=== PATIENT | female | born 1970 | race Caucasian/White ===

== ENCOUNTER 2024-09-18 13:17 | Emergency (ER) | payer OTHER, SELFPAY ==
[2024-09-18 13:37] VITALS: BP 126/81; PULSE 86; RESP 16; TEMP 36.7; O2SAT 95; BMI 37.8
[2024-09-18 14:05] LABS: Appearance Urine Clear (Clear); Bilirubin Urine Negative (Negative); Blood Urine 2+ (Negative); Color Urine Yellow (Yellow); Glucose Urine Negative (Negative); Ketones Urine Negative (Negative); Leukocyte Esterase Urine Negative (Negative); Nitrite Urine Negative (Negative); Protein Urine 1+ (Negative); Specific Gravity Urine >= 1.030 (1.000-1.030); Urobilinogen Urine 0.2 (0.2-1.0); pH Urine 5.5 (5.0-8.5)
[2024-09-18 14:10] LABS: Bacteria Urine Moderate; Squamous Epithelial Cell Urine Moderate (None-Few); WBC Urine 0-2 (0-5)
--- NOTE | 2024-09-18 14:10 | CRLHL7_ITS ---
For Patients: As a result of the Century Cures Act, medical imaging exams and procedure reports are released immediately into your electronic medical record. You may view this report before your referring provider. If you have questions, please contact your health care provider. Indication: Left flank and abdominal pain, hip pain Technique: Volumetric multidetector CT images of the abdomen and pelvis were without the administration of intravenous contrast. Comparison: None available. Findings: The lung bases are clear. The liver is normal in attenuation without intrahepatic biliary ductal dilatation. The gallbladder is unremarkable without evidence of radiopaque calculus. There is no significant common biliary ductal dilatation or abrupt cut off. The spleen is normal in attenuation and size. The stomach and duodenum are grossly unremarkable. The pancreas is normal in attenuation without significant atrophy. The adrenal glands are unremarkable. Demonstration of a 7.4 millimeter calculus within the left renal pelvis with mild pelviectasis and proximal periureteral soft tissue stranding. No evidence of distal hydronephrosis or obstructive calculus. There is a mild amount of stool seen throughout the colon. There is mild distal colonic diverticulosis. The appendix is unremarkable. There is no significant mesenteric, retroperitoneal, or pelvic sidewall lymph nodes. The aorta is nonaneurysmal. There is no significant atherosclerotic disease appreciated. The solid pelvic viscera are grossly unremarkable. There is no free fluid or free air. There is moderate diastasis of the rectus musculature with a small fat containing umbilical hernia. The lumbar vertebral body heights are grossly maintained in satisfactory alignment without evidence of displaced fracture, lytic or blastic lesion. Impression: 1. Demonstration of a 7.4 millimeter calculus in the left renal pelvis with mild pelviectasis and proximal periureteral soft tissue stranding likely representing early obstructive changes without evidence of distal obstructive calculus. Please note that all CT scans at this facility use dose modulation, iterative reconstruction, and/or weight-based dosing when appropriate to reduce radiation dose to as low as reasonably achievable. Dictated by Chris Edward MD @ 09/18/2024 3:16:38 PM (Electronically Signed)
--- NOTE | 2024-09-18 14:11 | ED_ITS ---
HPI - General Adult General Chief complaint: Flank Pain Stated complaint: Back and L hip pain Time Seen by Provider: 09/18/24 13:29 History of Present Illness HPI narrative: This 53-year-old female comes in reporting left flank pain radiating down into her abdomen. She states that this pain has occurred on and off over the past 2 or 3 months. Sometimes she has associated nausea and attempts to get into a better position. She does not report any specific injury event or strenuous a ctivity. She does not have any dysuria symptoms and has no awareness of any personal or family history of kidney stone. She attempted to call in to clinic for an appointment and the triage nurse stated that she needed to come to the emergency department. Related Data Previous Rx's ?Medication ?Instructions ?Recorded hydrocodone 5 mg-acetaminophen 325 1 tab PO Q4-6H PRN pain #20 tabs 09/18/24 mg tablet ketorolac 10 mg tablet 10 mg PO Q8H 5 days #15 tabs 09/18/24 Allergies Allergy/AdvReac Type Severity Reaction Status Date / Time Latex, Natural Rubber Allergy Unknown Verified 09/18/24 13:44 Review of Systems Status of ROS: Reports: 10 or more systems reviewed and unremarkable except as noted in History and below Narrative: Constitutional: No fevers, no weight gain or loss. Eyes: No discharge. No vision changes. HENT: No congestion, no sore throat, no ear pain. Cardiovascular: No chest pain, no palpitations. Respiratory: No shortness of breath, no wheezes, no cough. Gastrointestinal: No diarrhea. Left flank and abdominal pain as described above with occasions of nausea. Genitourinary: No dysuria, no hematuria. Musculoskeletal: Normal range of motion. Skin: No rashes, no pruritis. Neurological: No dizziness, weakness, sensory change, speech change. Endo/Heme/Allergies: No bruising or bleeding. No polydipsia. Pysch: no suicidality, no anxiety, no insomnia. All other systems reviewed and are negative. PFSH PFSH Social History Smoking Status: Never smoker How often do you have a drink containing alcohol: never How often do you have six or more drinks on one occasion: Never AUDIT-C Alcohol total score: 0 Non-prescribed substance use: denies use Exam Narrative: Exam Narrative: Constitutional: Well-developed, well-nourished, no acute distress. HEENT: Normocephalic, atraumatic. Neck: Normal range of motion. Nontender. Supple. Heart: Regular. No murmurs. Normal rate. Intact distal pulses. Lungs: Clear to auscultation. No chest discomfort. No wheezes, rhonchi, or rales. Abdomen: Normal bowel sounds. Nontender. No rebound tenderness. Genitalia: Deferred. Back: No midline tenderness. Normal range of motion. Extremities: Normal range of motion. No injury. Skin: Intact. No rash. Warm. No erythema or pallor. Neurologic: No altered sensation. No weakness. Alert and oriented. Psychiatric: No suicidality. No anxiety or depression. No insomnia. Nursing notes and vitals signs are reviewed. Const: Vital Signs, click to edit/add: Vital Signs - 24 hr 09/18/24 13:37 Temperature 98.0 F Pulse Rate [Pulse Oximeter] 86 Respiratory Rate 16 Blood Pressure [Ri ght Upper Arm] 126/81 Pulse Oximetry 95 Oxygen Delivery Me thod Room Air Course Vital Signs Vital signs: Initial Vital Signs Temperature 98.0 F 09/18/24 13:37 Temperature Source Temporal Artery Scan 09/18/24 13:37 Pulse Rate 86 09/18/24 13:37 Respiratory Rate 16 09/18/24 13:37 Blood Pressure 126/81 09/18/24 13:37 Blood Pressure Mean 96 09/18/24 13:37 Blood Pressure Position Sitting 09/18/24 13:37 Pulse Oximetry 95 09/18/24 13:37 Oxygen Delivery Method Room Air 09/18/24 13:37 Vital Signs Temperature 98.0 F 09/18/24 13:37 Pulse Rate 86 09/18/24 13:37 Respiratory Rate 16 09/18/24 13:37 Blood Pressure 126/81 09/18/24 13:37 Pulse Oximetry 95 09/18/24 13:37 Oxygen Delivery Method Room Air 09/18/24 13:37 Temperature 98.0 F 09/18/24 13:37 Pulse Rate 86 09/18/24 13:37 Respiratory Rate 16 09/18/24 13:37 Blood Pressure 126/81 09/18/24 13:37 Pulse Oximetry 95 09/18/24 13:37 Oxygen Delivery Method Room Air 09/18/24 13:37 Medical Decision Making MDM Narrative Medical decision making narrative: This patient has had intermittent left flank pain on and off for the past few months. Her symptoms were suspicious for possibility of a kidney stone. Urinalysis does show some microscopic hematuria but no sign of infection. CT scan of her abdomen and pelvis does show a 7.4 mm stone in the renal pelvis. There are very mild obstructive changes related to this. Currently the patient does not have any pain. I relayed the findings to her and stated that she will likely need the assistance of a urologist to help with removal of the stone as it is causing her symptoms. She understands that we do not have urology resources here so I directed her regarding such follow-up. She also received prescriptions for Toradol and [place]. Lab Data Labs: Lab Results 09/18/24 Range/Units 13:46 Urine Color Yellow (Yellow) Urine Appearance Clear (Clear) Urine pH 5.5 (5.0-8.5) Ur Specific [place] >= 1.030 (1.000-1.030) Urine Protein 1+ A (Negative) Urine Glucose (UA) Negative (Negative) Urine Ketones Negative (Negative) Urine Blood 2+ A (Negative) Urine Nitrite Negative (Negative) Urine Bilirubin Negative (Negative) Urine Urobilinogen 0.2 (0.2-1.0) Ur Leukocyte Esterase Negative (Negative) Urine RBC 5-10 A (0-2) Urine WBC 0-2 (0-5) Ur Squamous Epith Cells Moderate A (None-Few) Urine Bacteria Moderate A (None) Imaging Data CT scan - abdomen: Radiologist's impression: Demonstration of a 7.4 millimeter calculus in the left renal pelvis with mild pelviectasis and proximal periureteral soft tissue stranding likely representing early obstructive changes without evidence of distal obstructive calculus. Discharge Plan Discharge Clinical Impression: Calculus, ureteral Patient Disposition: Home, Self-Care Condition: Stable Additional Instructions: Take medication as needed and directed. Follow up with Urology for ongoing management and treatment. Return if worsening symptoms occur. Prescriptions: New hydrocodone-acetaminophen 5-325 mg tablet 1 tab PO Q4-6H PRN (Reason: pain) Qty: 20 0RF ketorolac 10 mg tablet 10 mg PO Q8H 5 Days Qty: 15 0RF Follow Up/Referrals: Erin Yang MD [Referring] - Stand Alone Forms: [employer] Info Instructions
[2024-09-18 16:05] VITALS: BP 131/90; PULSE 76; RESP 18; TEMP 37.1; O2SAT 96
== END 2024-09-18 16:13 | disposition home or self-care (01) ==
PROVIDERS: Emergency Provider Emergency Medicine Emergency Medical Services
DX: N20.1 Calculus of ureter (principal)
CPT/HCPCS: 74176; 81001; 87086; 99284

== ENCOUNTER 2024-11-19 22:47 | Emergency (ER) | payer OTHER, SELFPAY ==
--- OUTSIDE RECORDS SUMMARY | 2024-11-19 22:48 | XMS_ITS | Encounter Summary ---
Author Organization [email or web address] Address [address] [place] [address] Care Team Providers Care Business Solutions Consultant Name Role Phone Unassigned, Provider Primary Care Provider Unava ilable Reason for Visit * Reason Comments QUESTIONS, GENERAL Encounter Details Date Type Department Care Team (Late st Contact Info) Description 10/13/2024 Telephone [facility] - Urology [address] [place] [address] Germain Whitaker MD [address] [place] [address] QUESTIONS, GENERAL Social History Tobacco Use Types Packs/Day Years Used Date Smoking Tobacco: Never Assessed Comments No Sex and Gender Information Value Date Recorded Sex Assigned at Not on file Legal Sex Female 6:54 AM CDT Gender Identity Not on file Sexual Orientation Not on file documented as of this encounter Nursing Notes * Gloria Bowie LPN - 10/13/2024 9:46 AM CST Pt calling with questions about pain management with stent. She is almost out of toradol. She was advised to switch over to ibuprofen 800mg with food. [employer] documented in this encounter Plan of Treatment Upcoming Encounters Date Type Department Care Team (Late st Contact Info) Description 01/22/2025 11:45 AM CDT [facility] [address] [facility] [address] [place] [address] Germain Whitaker MD [address] [place] [address] 01/25/2025 9:00 AM CDT Phone Visit [facility] - Urology [address] [facility] [place] [address] Germain Whitaker MD [address] [place] [address] documented as of this encounter Visit Diagnoses Not on filedocumented in this encounter Care Teams Business Solutions Consultant Relationship Specialty Start Date End Date Unassigned, Provider [address] [place] [id number] PCP - General 06/22/00 10/16/24 documented as of this encounter
--- OUTSIDE RECORDS SUMMARY | 2024-11-19 22:48 | XMS_ITS | Encounter Summary ---
Author Organization [facility] Address [address] [place] [address] Care Team Providers Care Clinical Research Spec Name Role Phone Pcp, Pt Declines MD Primary Care Provider [phone] Reason for Referral * Procedure/Equipment (Routine) - Incomplete Specialty Diagnoses / Procedures Referred By Contabram t Referred To Contact Diagnoses Kidney stone Procedures US Renal W Bladder Germain Whitaker MD [address] [place] [address] Phone: tel: fax: Referral ID Status Reason Start Date Expiration Date V isits Requested Visits Authorized [id number] Incomplete 11/17/2024 02/16/2026 1 1 Reason for Visit * Reason Comments Follow-up, NOS Encounter Details Date Type Department Care Team (Late st Contact Info) Description 10/17/2024 1:45 PM CDT Office Visit [facility] [address] [place] [phone] Germain Whitaker MD [address] [place] [address] Kidney stone (Primary Dx) Social History Tobacco Use Types Packs/Day Years Used Date Smoking Tobacco: Never Assessed Comments No Sex and Gender Information Value Date Recorded Sex Assigned at Not on file Legal Sex Female 6:54 AM CDT Gender Identity Not on file Sexual Orientation Not on file documented as of this encounter Progress Notes * Germain Whitaker MD - 10/17/2024 1:45 PM CDT History: 54-year-old female with a history of a left-sided kidney stone status post left ureteroscopy with laser and stent placement on 10/09/2024. Her left kidney stone was dusted completely. Procedure performed: Cystourethroscopy with left ureteral stent removal Description of procedure: The patient was prepped and draped in the usual sterile fashion. The patient was given stalin-procedural antibiotics. A flexible cystoscope was advanced transurethrally into the bladder. The stent was visualized emanating from the left ureteral orifice. The stent was graspedwith a grasper and removed without difficulty. The patient tolerated the procedure well. Follow-up plan: We discussed some general stone prevention recommendations. Followup in a few months with a renal ultrasound. documented in this encounter Plan of Treatment Upcoming Encounters Date Type Department Care Team (Late st Contact Info) Description 01/22/2025 11:45 AM CDT Appointment [facility] [address] [address] [address] [place] [address] Germain Whitaker MD [address] [place] [address] 01/25/2025 9:00 AM CDT Phone Visit [facility] - Urology [address] [place] [address] Germain Whitaker MD [address] [place] [address] Scheduled Orders Name Type Priority Associated Diagnoses Orde r Schedule US Renal W Bladder Imaging New Routine Kidney stone Expected: 11/17/2024 (Approximate), Expires: 10/17/2025 documented as of this encounter Visit Diagnoses Diagnosis Kidney stone- Primary Calculus of kidney documented in this encounter Administered Medications Inactive Administered Medications - up to 3 most recent administrations Medication Order MAR Action Action Date Dose Rate Site cephalexin (KEFLEX) capsule 500 mg 500 mg, Oral, ONCE, On Wed10/17/24 at 1430, For 1 dose, Indications: Surgical ProphylaxisIndications:Surgical Prophylaxis Given 10/17/2024 2:31 PM CDT 500 mg documented in this encounter Care Teams Clinical Research Spec Relationship Specialty Start Date End Date Pcp, [place] [address] PCP - General 10/17/24 documented as of this encounter
--- OUTSIDE RECORDS SUMMARY | 2024-11-19 22:49 | XMS_ITS | Clinical Summary ---
Author Organization [facility] Address [address] [place] [address] Care Team Providers Care Member Services Coordinator Name Role Phone Esthela Stahl MD Unavailable Sheri Parra DO Primary Care Provider [phone] Allergies Active Allergy Reactions Criticality Noted Date Comments Latex Rash 07/06/2018 Medications HYDROcodone-humza taminophen (5-325 mg/tablet) Take 1 Tablet by mouth every 4 hours if needed. 5 11/09/19 25 Discontinu ed(*Patien t states no longer taking) ketorolac (TORADOL) 10 mg tablet Take 10 mg by mouth three times daily. 5 11/09/19 25 Discontinu ed(*Patien t states no longer taking) Active Problems Problem Noted Date Diagnosed Date Pap smear for cervical cancer screening 07/26/20 23 Overview (07/26/2023): 07/2023 NIL/HPV negative Plan: Pap/HPV due 07/2028 Vitamin D deficiency 07/15/2023 BMI 36.0-36.9,adult 10/04/2017 Resolved Problems Problem Noted Date Diagnosed Date Resolved Date IUD (intrauterine device) in place - paraguard 09/09/2012 07/15/2023 Overview (06/23/2020): 09/2012 Encounters Date Type Department Care Team Description 11/08/2024 9:10 AM CDT Office Visit [facility] [[email or web address] [address] [place] [address] Sheri Parra, DO Physical (54 year old) 11/08/2024 Travel 10/06/2024 Telephone [facility] [[email or web address]] [address] [place] [address] [address] Sheri Parra, DO Questions 10/05/2024 8:56 AM BAND SAWYER - 10/05/2024 11:59 PM BAND SAWYER Hospital Encounter [facility] [address] [place] [address] Sehri Parra, Pre-op exam; Chest pain in adult 10/04/2024 7:30 AM BAND SAWYER Office Visit [facility] [[email or web address]] [address] [place] [address] Sheri Parra, Pre-Op Exam (10/09/24 Ureteroscopy with Laser Lithotripsy and Ureteral Stent Placement [facility] Dr. Germain Whitaker ) 10/04/2024 Orders Only [facility] [[email or web address]] [address] [place] [address] [address] Sheri Parra, DO 1 scan: (1-Ord) NFLD-EKG-10/04/24 10/04/2024 Travel 09/18/2024 Nurse Triage [facility] [[email or web address]] [address] [place] [address] [address] Sheri Parra, DO Back Pain from Last 3 Months Immunizations Immunization Administration Dates Next Due AMB Influenza, IIV4 PF (=>6 mos Flulaval,Fluzone Fluarix)(Flu Clinic Only) 06/07/2020,05/30/2019 COVID-19 VACCINE SPIKEVAX (M ODERNA 50MCG/0.5ML) 12YO+ PFS 05/04/2024 COVID-19 vaccine (WhereverTV-Bio NTech 30mcg/0.3mL) 12YO+ BIVALENT PF, MDV 05/11/2022 COVID-19 vaccine (Pfizer-Bio NTech 30mcg/0.3mL) 12YO+ SHARMILA-SUCROSE PF, MDV 01/12/2022 COVID-19 vaccine (Southern DreamsBio NTech 30mcg/0.3mL) PF, MDV 11/23/2020,11/02/2020 INFLUENZA, IIV3 PF (AGE >= 6 MO) 05/04/2024 Influenza, IIV3 (Age >=3 years) 06/09/2010 Influenza, IIV4 05/18/2023,,06/25/2021,2017 Td (Age >=7 Years) 08/09/2003 Tdap 07/20/2022,05/09/2012 Zoster (Shingrix-RZV, recombinant) 07/20/2022, Family History Medical History Relation Name Comments Hyperlipidemia Father Hypertension Father Heart Disease Maternal Grandfather Stroke Mother 76 Heart attack Sister Cancer-breast No Family History Premature CHD (under age 60) No Family History Relation Name Status Comments Father Maternal Grandfather Mother Sister Social History Tobacco Use Types Packs/Day Years Used Date Smoking Tobacco: Never Smokeless Tobacco: Never Tobacco Cessation:Counseling Given: Yes Comments:no exposure Alcohol Use Standard Drinks/Week Comments Yes 0 (1 standard drink = 0.6 oz pur e alcohol) rarely less than once a month PHQ-2 Answer Date Recorded PHQ-2 TOTAL SCORE 2 11/08/2024 Social Connections Answer Date Recorded Do you often feel lonely or isolated from those around you? 0 10/04/2024 Financial Resource Strain Answer Date R ecorded Difficulty of Paying Living Expenses 3 10/04/2024 Difficulty of Paying Living Expenses Not on file 10/04/2024 Food Insecurity Answer Date Recorded Do you worry your food will run out before you are able to buy more? 1 10/04/2024 Transportation Needs Answer Date Record ed Does lack of transportation keep you from medica l appointments? 1 10/04/2024 Does lack of transportation keep you from work, meetings or getting things that you need? 1 10/04/2024 Housing Stability Answer Date Recorded What is your housing situation today? 1 10/04/2024 Utilities Answer Date Recorded Do you have trouble paying f or utilities (for example, heat, electricity, water, phone)? 1 10/04/2024 Comments No Sex and Gender Information Value Date Recorded Sex Assigned at Not on file Legal Sex Female 5:48 AM BAND SAWYER Gender Identity Not on file Sexual Orientation Not on file Obstetrics History Para Term AB IAB SAB Ectopic Multiple Livin g Live Births 3 1 1 1 1 0 Date Outcome GA Total Labor Labor/2nd/3rd Weight Sex Type Anes PTL Consuelo A1 A5 Name Clin Comments:System Genera paddy. Please review and update details. 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 Delivery Location:[place] Comments:marginal prev ia Last Filed Vital Signs Vital Sign Reading Time Taken Comments Blood Pressure 135/85 11/08/2024 9:24 AM CDT Pulse 69 11/08/2024 9:24 AM CDT Temperature 36.8 C (98.2 F) 03/19/2022 1:05 PM CDT Respiratory Rate 16 03/19/2022 1:05 PM CDT Oxygen Saturation 96% 07/15/2023 10: 01 AM BAND SAWYER Inhaled Oxygen Concentration - - Weight 102.2 kg (225 lb 6.4 oz) 11/08/2024 9:24 AM CDT Height 166 cm (5' 5.35) 11/08/2024 9:24 AM CDT Body Mass Index 37.1 11/08/2024 9:24 AM CDT Plan of Treatment Health Maintenance Due Date Last Done Comments Pneumococcal series for age 50+ (1 of 1 - PCV) 2020 Mammogram for age 45-75 06/29/2024 06/29/20 23, 11/07/2021, 10/10/2019, Additional history exists Fecal testing sDNA-FIT ([place] guard) for age 45-75 11/14/2024 11/14/2021, 11/14/2021 BMI (ht and wt on same day) for age 18+ 11/08/2025 11/08/2024, 10/04/2024, 07/15/2023, Additional history exists Depression screening for age 12+ 11/08/2025 11/08/2024, 07/15/2023, 10/30/2021, Additional history exists Pap test for age 21-65 07/15/2028 , 07/15/2023, 10/05/2019, Additional history exists Lipids for age 45-75 11/08/2029 11/08/2024, 07/15/2023, 10/30/2021, Additional history exists Tetanus booster 07/20/2032 07/20/2022, 08/2011, 08/09/2003 HIV for age 15-65 Completed 05/25/2012, 10/18/2009 Hepatitis C screening for ag e 18-79 Completed 05/25/2012 Tdap Completed 07/20/2022, 05/09/2012 Zoster (shingles) series for age 50+ Completed 07/20/2022, 11/07/2021 COVID-19 vaccine series Completed 05/04/20, 05/25/2023, 05/11/2022, Additional history exists Influenza Vaccine Completed 05/04/2024, , 06/17/2022, Additional history exists Procedures Procedure Name Priority Date/Time Associated Diagnosis Comments TSH WITH REFLEX Routine 11/08/2024 10:11 AM CDT Missed period CBC W PLT NO DIFF Routine 11/08/2024 10: 11 AM CDT Routine general medical examination at [facility] LIPID PANEL W REFLEX MEASURED LDL Routine 11/08/2024 10:11 AM CDT Screening for lipid disorders FSH Routine 11/08/2024 10:11 AM CDT Missed period VITAMIN D 25 (DEFICIENCY) Routine 11/08/2024 10:11 AM CDT Low vitamin D level HEMOGLOBIN A1C Routine 11/08/2024 10:11 AM CDT Screening for diabetes mellitus COMP METABOLIC PANEL Routine 11/08/2024 10:11 AM CDT BMI 37.0-37.9, adult Elevated blood pressure reading without diagnosis of hypertension URINE POCT Routine 11/08/2024 10:10 AM CDT Missed period ECHO STRESS EXRCSE W CNTRST W COLOR W LTD DOPPLER BRAVO 10/05/2024 12:03 PM BAND SAWYER Pre-op exam Chest pain in adult STRESS TEST EXERCISE DONE WITH STRESS ECHO BRAVO 10/05/2024 10:11 AM BAND SAWYER Pre-op exam Chest pain in adult SCAN-STRESS TEST 10/05/2024 12:0 0 AM BAND SAWYER EKG 12 LEAD Routine 10/04/2024 9:04 AM BAND SAWYER Chest pain in adult AR READING EKG - NO CHARGE, COMP ONLY Routine 10/04/2024 9:03 AM BAND SAWYER Chest pain in adult HPV HIGH RISK Routine 07/15/2023 10:40 AM BAND SAWYER Screening for cervical cancer XR MAMMO YO BILAT SCREEN Routine 06/29/2023 4:57 PM BAND SAWYER Visit for screening mammogram FECAL DNA (AKA COLOGUARD) Routine 11/14/2021 12:00 AM CDT Screening for colon cancer ANTI HIV 1/2 Routine 05/25/2012 9:14 AM CDT Supervision of other normal (HC) ANTI HCV Routine 05/25/2012 9:14 AM CDT Supervision of other normal (HC) from Last 3 Months or Most Recently Relevant to Health Maintenance Results * HEMOGLOBIN A1C (11/08/2024 10:11 AM CDT) HEMOGLOBIN A1C 5.6 <5.7 % of total Hgb [facility] Comment: For the purpose of screening for the presence of diabetes: <5.7% Consistent with the absence of diabetes 5.7-6.4% Consistent with increased risk for diabetes (prediabetes) > or =6.5% Consistent with diabetes This assay result is consistent with a decreased risk of diabetes. Currently, no consensus exists regarding use of hemoglobin A1c for diagnosis of diabetes in children. According to [place] Diabetes [employer] (ADA) guidelines, hemoglobin A1c <7.0% represents optimal control in non- diabetic patients. Different metrics may apply to specific patient populations. Standards of Medical Care in Diabetes(ADA). Blood BLOOD SPECIMEN / Unknown 11/08/2024 10:11 AM CDT 11/08/2024 10:13 AM CDT Narrative [facility] - 11/09/2024 5:24 AM CDT FASTING:YES FASTING: YES Sheri Parra CHEMISTRY Final Resu lt Performing Organization Address [facility] Co de Phone Number [facility] [address] [place] [address], [facility] [address] [place] [address] * TSH WITH REFLEX (11/08/2024 10:11 AM CDT) TSH W/REFLEX TO FT4 4.06 mIU/L [facility] Comment: Reference Range > or = 20 Years 0.40-4.50 Ranges First trimester 0.26-2.66 Second trimester 0.55-2.73 Third trimester 0.43-2.91 Blood BLOOD SPECIMEN / Unknown 11/08/2024 10:11 AM CDT 11/08/2024 10:13 AM CDT Narrative [facility] - 11/09/2024 3:49 AM CDT FASTING:YES FASTING: YES Sheri Parra DO CHEMISTRY Final Resu Performing Organization Address [facility] Co de Phone Number [facility] [address] [place] [address], [facility] [address] [place] [address] * (ABNORMAL) LIPID PANEL W REFLEX MEASURED LDL (11/08/2024 10:11 AM CDT) CHOLESTEROL, TOTAL 228(H) <200 mg/dL [facility] HDL CHOLESTEROL 46(L) > OR = 50 mg/dL [facility] TRIGLYCERIDES 203(H) <150 mg/dL [facility] Comment: If a non-fasting specimen was collected, consider repeat triglyceride testing on a fasting specimen if clinically indicated. Alexander et al. J. of Clin. Lipidol. 2015;9:129-169. LDL-CHOLESTEROL 148(H) mg/dL (calc) [facility] Comment: Reference range: <100 Desirable range <100 mg/dL for primary prevention; <70 mg/dL for patients with CHD or diabetic patients with > or = 2 CHD risk factors. LDL-C is now calculated using the Lee calculation, which is a validated novel method providing better accuracy than the Friedewald equation in the estimation of LDL-C. Dashawn SS et al. MAYA. 2013;310(19): 9655-6494 (http://education.[employer]/faq/VDY863) CHOL/HDLC RATIO 5.0(H) <5.0 (calc) [facility] NON HDL CHOLESTEROL 182(H) <130 mg/dL (calc) [facility] Comment: For patients with diabetes plus 1 major ASCVD risk factor, treating to a non-HDL-C goal of <100 mg/dL (LDL-C of <70 mg/dL) is considered a therapeutic option. Blood BLOOD SPECIMEN / Unknown 11/08/2024 10:11 AM CDT 11/08/2024 10:13 AM CDT Narrative [facility] - 11/09/2024 2:52 AM CDT FASTING:YES FASTING: YES Sheri Parra DO CHEMISTRY Final Resu lt [employer] [facility] [address] [place] [address], [facility] [address] [place] [address] * (ABNORMAL) VITAMIN D 25 (DEFICIENCY) (11/08/2024 10:11 AM CDT) VITAMIN D,25-OH,TOTAL,IA 15(L) 30 - 100 ng/mL [facility] Comment: Vitamin D Status 25-OH Vitamin D: Deficiency: <20 ng/mL Insufficiency: 20 - 29 ng/mL Optimal: > or = 30 ng/mL For 25-OH Vitamin D testing on patients on D2-supplementation and patients for whom quantitation of D2 and D3 fractions is required, the Quest[facility]ure[facility](TM) 25-OH VIT D, (D2,D3), LC/MS/MS is recommended: order code 80875 (patients >2yrs). See Note 1 Note 1 For additional information, please refer to http://education.[employer]/faq/AIB386 (This link is being provided for informational/ educational purposes only.) Blood BLOOD SPECIMEN / Unknown 11/08/2024 10:11 AM CDT 11/08/2024 10:13 AM CDT Narrative [facility] - 11/09/2024 3:49 AM CDT FASTING:YES FASTING: YES Sheri Parra DO SEND OUTS Final Resu lt [employer] [facility] [address] [place] [address], [employer] [address] * CBC W PLT NO DIFF (11/08/2024 10:11 AM CDT) WHITE BLOOD CELL COUNT 7.4 3.8 - 10.8 Thousand/u L [facility] RED BLOOD CELL COUNT 4.87 3.80 - 5.10 Million/uL [facility] HEMOGLOBIN 13.6 11.7 - 15.5 g/dL [facility] HEMATOCRIT 41.9 35.0 - 45.0 % [facility] MCV 86.0 80.0 - 100.0 fL [facility] MCH 27.9 27.0 - 33.0 pg [facility] MCHC 32.5 32.0 - 36.0 g/dL [facility] Comment: For adults, a slight decrease in the calculated MCHC value (in the range of 30 to 32 g/dL) is most likely not clinically significant; however, it should be interpreted with caution in correlation with other red cell parameters and the patient's clinical condition. RDW 13.1 11.0 - 15.0 % [facility] PLATELET COUNT 359 140 - 400 Thousand/u L [facility] MPV 9.8 7.5 - 12.5 fL [facility] Blood BLOOD SPECIMEN / Unknown 11/08/2024 10:11 AM CDT 11/08/2024 10:13 AM CDT Narrative [facility] - 11/09/2024 3:38 AM CDT FASTING:YES FASTING: YES us Sheri Parra DO HEMATOLOGY Final Resu lt Performing Organization Address [facility] Co de Phone Number [facility] [address] [place] [address], [facility] [address] [place] [address] * FSH (11/08/2024 10:11 AM CDT) FSH 25.9 mIU/mL [facility] Comment: Reference Range Follicular Phase 2.5-10.2 Mid-cycle Peak 3.1-17.7 Luteal Phase 1.5- 9.1 Postmenopausal 23.0-116.3 Blood BLOOD SPECIMEN / Unknown 11/08/2024 10:11 AM CDT 11/08/2024 10:13 AM CDT Narrative [facility] - 11/09/2024 4:04 AM CDT FASTING:YES FASTING: YES us Sheri Parra DO CHEMISTRY Final Resu lt Performing Organization Address [facility]/State/ZIP Co de Phone Number [facility] [address] [facility] [place] [address], [place] [phone] [facility] [address] [place] [address] * (ABNORMAL) COMP METABOLIC PANEL (11/08/2024 10:11 AM CDT) Pathologist [facility] GLUCOSE 84 65 - 99 mg/dL [facility] Comment: Fasting reference interval UREA NITROGEN (BUN) 9 7 - 25 mg/dL [facility] CREATININE 0.81 0.50 - 1.03 mg/dL [facility] EGFR 86 > OR = 60 mL/min/1. 73m2 [facility] BUN/CREATININE RATIO SEE NOTE: 6 - 22 (calc) [facility] Comment: Not Reported: BUN and Creatinine are within reference range. SODIUM 139 135 - 146 mmol/L [facility] POTASSIUM 4.1 3.5 - 5.3 mmol/L [facility] CHLORIDE 102 98 - 110 mmol/L [facility] CARBON DIOXIDE 28 20 - 32 mmol/L [facility] CALCIUM 9.3 8.6 - 10.4 mg/dL [facility] PROTEIN, TOTAL 7.2 6.1 - 8.1 g/dL [facility] ALBUMIN 4.2 3.6 - 5.1 g/dL [facility] GLOBULIN 3.0 1.9 - 3.7 g/dL (calc) [facility] ALBUMIN/GLOBULIN RATIO 1.4 1.0 - 2.5 (calc) [facility] BILIRUBIN, TOTAL 0.4 0.2 - 1.2 mg/dL [facility] ALKALINE PHOSPHATASE 166(H) 37 - 153 U/L [facility] AST 22 10 - 35 U/L [facility] ALT 34(H) 6 - 29 U/L [facility] Blood BLOOD SPECIMEN / Unknown 11/08/2024 10:11 AM CDT 11/08/2024 10:13 AM CDT Narrative [facility] - 11/09/2024 2:52 AM CDT FASTING:YES FASTING: YES us Sheri Parra DO CHEMISTRY Final Resu lt [employer] [facility] [address] [place] [address], [place] [phone] [facility] [address] [place] [address] * POCT Urine (11/08/2024 10:10 AM CDT) POC HCG URINE NEGATIVE NEGATIVE [facility] Urine URINE SPECIMEN / Unknown 11/08/2024 10:10 AM CDT 11/08/2024 10:10 AM CDT Sheri Parra DO URINE Final Resu lt [facility] [address] [place] [address], [place] [phone] [facility] [address] [place] [address] * ECHO STRESS EXRCSE W CNTRST W COLOR W LTD DOPPLER (10/05/2024 12:03 PM BAND SAWYER) AORTIC VALVE MEAN PG 5 mmHg PEAK TR VELOCITY 1.9 m/s LVEDD 4.4 cm EJECTION FRACTION 55 - 60% Anatomical Region Laterality Modality Ultrasound, Othe r, Other 10/05/2024 9:09 AM BAND SAWYER Narrative 10/05/2024 3:00 PM BAND SAWYER STRESS ECHOCARDIOGRAM SARIKA SALEH : 1970 54 years Study Date: 10/05/2024 9:09:31 AM Gender: F BP: 128/73 mmHg Height: 165.00 cm BSA: 2.08 m Weight: 102.00 kg Tech: ROLF Referring MD: SHERI PARRA Site: [facility] Reading Location: Mobile-OP Patient Location: Outpatient. Procedure: Stress Echo, Color Doppler, Limited Spectral Doppler and Contrast. Kb stress echo. Indication for study: Pre-Op exam/ Chest Pain Cardiac Rhythm: Normal sinus.Study quality: Fair. Final Impressions: 1. Negative stress echo for ischemia. 2. Grossly normal rest screening echo. 3. Maximum stress test with 98.8% of age predicted maximum heart rate achieved. 4. Post stress, normal left ventricular size, normal global systolic function with an estimated EF of >75%. 5. There were no ischemic changes by EKG during stress. 6. Good exercise duration and workload. 7. During stress exam the patient developed no significant symptoms. 8. Echo contrast was administered to enhance visualization of all left ventricular segments. Stress Data: HR Systolic Diastolic Time Duration Minutes Seconds Baseline 64 bpm 128 73 mmHg 6 :46 Peak 164 bpm 180 96 mmHg Max Pred HR 166 % of Max 99% Mera Treadmill Score 7 Double Product [id number] Echo Findings:This is a negative stress echo test for ischemia. Post stress, normal left ventricular size, normal global systolic function with an estimated EF of >75%. LV regional wall motion abnormalities are not present post exercise. EKG:During exercise, the patient developed no abnormal findings on rhythm with normal conduction. There were no ischemic changes by EKG during stress. Exam Protocol:The patient presents with no significant symptoms at baseline. The patient exercised 6 min 46 sec to stage III according to the Kb stress echo protocol. Test terminated due to completion of protocol and fatigue. 10.2 METS were achieved. The patient achieved a heart rate of 164 bpm which is 98.8% of maximum predicted heart rate. Maximum systolic blood pressure was 180 [place] [address]. Maximum stress test with 98.8% of age predicted maximum heart rate achieved. The blood pressure response was normal. Exercise duration and workload were good. The patient developed no significant symptoms during the stress exam. Low (less than 1% annual mortality rate) non invasive risk stratification. Exercise stress test Mera Treadmill Score of 7. Chamber Sizes and Function Normal left ventricular size, normal global systolic function with an estimated EF of 55 - 60%. LV regional wall motion abnormalities are not present. Right ventricular cavity size is normal, global systolic RV function is normal. RV wall thickness is normal. The sinus of Valsalva is normal sized. The ascending aorta is normal sized. Valves, RV Pressures and Diastolic Function The aortic valve is normal in structure and trileaflet, no stenosis and no regurgitation. The mitral valve is normal in structure, no mitral regurgitation. The tricuspid valve is normal in structure and not evident tricuspid regurgitation. Tricuspid regurgitation is not evident. The tricuspid regurgitant velocity is 1.9 m/s, the estimated right ventricular systolic pressure is 15 mmHg plus right atrial pressure. Masses, Effusion, Shunts There is no pericardial effusion. MEASUREMENTS AND CALCULATIONS 2-D Measurements and LV Function: LVID (d) 4.4 cm LV FS% (2D) 38 % LVID (s) 2.7 cm HR 64 bpm IVS (d) 1.0 cm LA Vol index 20 ml/m2 LVPW (d) 0.8 cm RV Max 4C (d) 3.6 cm Ao Sinus 3.3 cm Asc Ao 3.0 cm LA 3.6 cm Aortic Valve: Vmax 1.5 m/s Max PG 9 mmHg VTI 0.33 m Mean PG 5 mmHg Tricuspid Valve and estimated PA pressures: TR Vmax 1.9 m/s TAPSE 1.8 cm TR maxG 15 mmHg Contrast documentation: 6 ml diluted Definity, lot #[id number], [facility]# [id number] was administered peripherally to enhance visualization of all left ventricular segments. . This study was interpreted by an [facility] accredited facility. Final Procedure Note Jean Claude Mendoza MD - 10/05/2024 STRESS ECHOCARDIOGRAM SARIKA SALEH : 1970 54 years Study Date: 10/05/2024 9:09:31 AM Gender: F BP: 128/73 mmHg Height: 165.00 cm BSA: 2.08 m Weight: 102.00 kg Tech: ROLF Referring MD: SHERI PARRA Site: [facility]) Reading Location: Mobile-OP Patient Location: Outpatient. Procedure: Stress Echo, Color Doppler, Limited Spectral Doppler andContrast. Kb stress echo. Indication for study: Pre-Op exam/ Chest Pain Cardiac Rhythm: Normal sinus.Study quality: Fair. Final Impressions: 1. Negative stress echo for ischemia. 2. Grossly normal rest screening echo. 3. Maximum stress test with 98.8% of age predicted maximum heart rateachieved. 4. Post stress, normal left ventricular size, normal global systolicfunction with an estimated EF of >75%. 5. There were no ischemic changes by EKG during stress. 6. Good exercise duration and workload. 7. During stress exam the patient developed no significant symptoms. 8. Echo contrast was administered to enhance visualization of all leftventricular segments. Stress Data: HR Systolic Diastolic Time Duration Minutes Seconds Baseline 64 bpm 128 73 mmHg 6 :46 Peak 164 bpm 180 96 mmHg Max Pred HR 166 % of Max 99% Mera Treadmill Score 7 Double Product [id number] Echo Findings:This is a negative stress echo test for ischemia. Poststress, normal left ventricular size, normal global systolic function withan estimated EF of >75%. LV regional wall motion abnormalities are notpresent post exercise. EKG:During exercise, the patient developed no abnormal findings on rhythmwith normal conduction. There were no ischemic changes by EKG duringstress. Exam Protocol:The patient presents with no significant symptoms atbaseline. The patient exercised 6 min 46 sec to stage III according to [facility] stress echo protocol. Test terminated due to completion of protocoland fatigue. 10.2 METS were achieved. The patient achieved a heart rate of164 bpm which is 98.8% of maximum predicted heart rate. Maximum systolicblood pressure was 180 [place] [address]. Maximumstress test with 98.8% of age predicted maximum heart rate achieved. Theblood pressure response was normal. Exercise duration and workload weregood. The patient developed no significant symptoms during the stressexam. Low (less than 1% annual mortality rate) non invasive riskstratification. Exercise stress test Mera Treadmill Score of 7. Chamber Sizes and Function Normal left ventricular size, normal global systolic function with anestimated EF of 55 - 60%. LV regional wall motion abnormalities are notpresent. Right ventricular cavity size is normal, global systolic RVfunction is normal. RV wall thickness is normal. The sinus of Valsalva isnormal sized. The ascending aorta is normal sized. Valves, RV Pressures and Diastolic Function The aortic valve is normal in structure and trileaflet, no stenosis and noregurgitation. The mitral valve is normal in structure, no mitralregurgitation. The tricuspid valve is normal in structure and not evidenttricuspid regurgitation. Tricuspid regurgitation is not evident. Thetricuspid regurgitant velocity is 1.9 m/s, the estimated right ventricularsystolic pressure is 15 mmHg plus right atrial pressure. Masses, Effusion, Shunts There is no pericardial effusion. MEASUREMENTS AND CALCULATIONS 2-D Measurements and LV Function: LVID (d) 4.4 cm LV FS% (2D) 38 % LVID (s) 2.7 cm HR 64 bpm IVS (d) 1.0 cm LA Vol index 20 ml/m2 LVPW (d) 0.8 cm RV Max 4C (d) 3.6 cm Ao Sinus 3.3 cm Asc Ao 3.0 cm LA 3.6 cm Aortic Valve: Vmax 1.5 m/s Max PG 9 mmHg VTI 0.33 m Mean PG 5 mmHg Tricuspid Valve and estimated PA pressures: TR Vmax 1.9 m/s TAPSE 1.8 cm TR maxG 15 mmHg Contrast documentation: 6 ml diluted Definity, lot #[id number], [facility]#[id number] was administered peripherally to enhance visualization of allleft ventricular segments. . This study was interpreted by an [facility] accredited facility. Final us Sheri Parra DO ECHO ORD Final Resu lt * STRESS TEST EXERCISE DONE WITH STRESS ECHO (10/05/2024 10:11 AM B[facility]YER) Anatomical Region Laterality Modality HEART Ultrasound, Othe r us Sheri Parra DO STRESS Final Resu lt * SCAN-STRESS TEST (10/05/2024 12:00 AM [facility]) Anatomical Region Laterality Modality Ultrasound, Othe r Narrative 10/05/2024 12:00 AM B[facility]WYER Ordered by an unspecified provider. us Other Clinical Staff OTHER Final Resul t * EKG 12 LEAD (10/04/2024 9:04 AM [facility]) us Sheri Parra DO EKG ORD Final Resu lt * AR READING EKG - NO CHARGE, COMP ONLY (10/04/2024 9:03 AM [facility]ER) us Sheri Parra DO PB - PROVIDER READINGS Fin al Result * HPV HIGH RISK (07/15/2023 10:40 AM B[facility]ER) TYPE 16 Negative Negative 07/20/2023 11:11 AM B[facility] SA[facility] TRAL [facility] TYPE 18 Negative Negative 07/20/2023 11:11 AM B[facility]ER [facility] TRA LAB[facility] OTHER HIGH RISK TYPES Negative Negative 07/20/2023 11:11 AM BAND SAWYER [facility] Other (Cervical) Non-Blood / Unknown 07/15/2023 10:40 AM BAND SAWYER 07/16/2023 12:12 PM [facility]ER Narrative [facility] - 07/20/2023 11:11 AM B[facility] HPV types 16, 18, 31, 33, 35, 39, 45, 51, 52, 56, 58, 59, 66 and 68 DNA were undetectable or below the pre-set threshold. Methodology: [employer]andra 4800 HPV Test us Sheri Parra DO MICROBIOLOGY Final Resu lt [facility] [address] [place] [address], [place] * XR MAMMO YO BILAT SCREEN (06/29/2023 4:57 PM [facility]ER) Anatomical Region Laterality Modality BREASTS, Breast Left, Breast Right Bilateral Mammography Impressions 06/30/2023 4:51 PM [facility]ER There is no radiographic evidence for malignancy. Recommend annual mammograms. MAMMOGRAM ASSESSMENT: ACR 1 Negative PATIENTS: You will also receive a letter with your examination results in an easy to read format. If you have questions about your results, please contact your referring provider. Narrative 06/30/2023 4:51 PM [facility]ER For Patients: As a result of the 21st Century Cures Act, medical imaging exams and procedure reports are released immediately into your electronic medical record. You may view this report before your referring provider. If you have questions, please contact your health care provider. XR MAMMO YO BILAT SCREEN [[id number]] CLINICAL HISTORY: This is an asymptomatic 52 y.o. patient. INDICATION FOR EXAM: Mammogram Screening. TECHNIQUE: CC & MLO views were obtained. This study was evaluated with the assistance of Computer-Aided Detection. Breast Tomosynthesis was used in interpretation. COMPARISON FILM: Yes 11/07/21 [facility] 10/10/19 [facility] FINDINGS: The breasts are heterogeneously dense, which may obscure small masses. There are no dominant masses, suspicious micro calcifications or areas of architectural distortion. Heike Salcedo MD MAMMO Final Resul t * FECAL DNA (AKA COLOGUARD) (11/14/2021 12:00 AM CDT) Erin Yang MD COMMUNICATION ORD Final Resul t * ANTI HCV (05/25/2012 9:14 AM CDT) ANTI HCV Non-reacti ve [facility] Blood specimen (specimen) BLOOD SPECIMEN / Unknown 05/25/2012 9:14 AM CDT 05/25/2012 9:01 AM CDT Result [facility] Keila DSOUZA SEND OUTS Final R esult [facility] [place]NAL ZIP [id number] [place] [address] * ANTI HIV 1/2 (05/25/2012 9:14 AM CDT) ANTI HIV 1/2 Non-reacti [facility] Blood specimen (specimen) BLOOD SPECIMEN / Unknown 05/25/2012 9:14 AM CDT 05/25/2012 9:01 AM CDT Result [facility] Final R esult [facility] INTERNAL ZIP [address] [place] [address] from Last 3 Months or Most Recently Relevant to Health Maintenance Insurance [employer] Care Teams Member Services Coordinator Relationship Specialty Start Date End Date Sheri Parra DO [address] [place] [address] PCP - General Family Practice 06/17/23 Esthela Stahl MD PRINCIPAL EMBEDDED SOFTWARE ENGINEER Obstetrics 08/11/12
--- OUTSIDE RECORDS SUMMARY | 2024-11-19 22:49 | XMS_ITS | Encounter Summary ---
Author Organization [facility] Address [address] [place] [address] Care Team Providers Care Auto Striper Name Role Phone Unassigned, Provider Primary Care Provider Unava ilable Reason for Visit * Auth/Cert (Routine) Specialty Diagnoses / Procedures Referred By Irina phillips Referred To Contact Diagnoses Kidney stone Kidney stone on left side Procedures URETEROSCOPY WITH LASER LITHOTRIPSY AND URETERAL STENT PLACEMENT AND RETROGRADE PYELOGRAM Referral ID Status Reason Start Date Expiration Date Visits Re quested Visits Authorized [id number] 1 1 Encounter Details Date Type Department Care Team (Late st Contact Info) Description 10/09/2024 9:27 AM SHAKE TABLE OPERATOR Anesthesia Event [facility] [address] [place] [address] Autumn Carrillo MD [address] [place], [place] [address] Marline Griffin APRN, CRNA [address] [place], [place] [phone] Anesthesia Record Procedure Summary Procedure Name Responsible Anesthesiologist Anesthesia Start Time Anesthesia Stop Time URETEROSCOPY WITH LASER LITHOTRIPSY AND URETERAL STENT PLACEMENT AND RETROGRADE PYELOGRAM (Left: Vagina) Autumn Carrillo MD 10/09/24 0927 10/09/24 1020 Events Date Time Event Comment 10/09/2024 0927 0927 An Start Anesthesia star t time denotes sedation started by FOXING PAINTER currently on case; patient continuously monitored to O.R. By FOXING PAINTER 0932 An Start Data 0933 / Present 0935 An Induction 0939 An Intubation 0941 MD/DO Present 1012 MD/DO Present 1014 An Extubation Purposeful mov ement with spontaneous respirations and adequate air exchange. Suctioned and ETT removed. Transferred with oxygen to recovery. 1014 an stop data 1020 Care Handoff Note I discusse d with the receiving nurse and we: 1) Identified the patient, rubio family member(s) or patient surrogate 2) Identified the responsible practitioner 3) Reviewed the pertinent medical history 4) Discussed the surgical/procedure course 5) Reviewed intra-op anesthesia management and issues during anesthesia 6) Set expectations for the post-procedure period 7) Allowed opportunity for questions and acknowledgement of understanding of report Electronically signed by Marline Griffin APRN, CRNA 1020 An Stop Care transferre d. Meds Name Total midazolam injection 2 mg/2 mL (VERSED) 2 mg fentaNYL injection (SUBLIMAZE) 100 mcg lidocaine 1% PF injection (XYLOCAINE) 10 0 mg propofol 10 mg/mL IV (DIPRIVAN) 200 mg propofol 10 mg/mL IV (DIPRIVAN) 413.1 mg rocuronium injection (ZEMURON) 50 mg sugammadex injection 100mg/mL (BRIDION) 200 mg ondansetron injection (ZOFRAN) 4 mg dexamethasone 4 mg/mL injection (DECADRO N) 8 mg ketorolac 15 mg/mL injection (TORADOL) 1 5 mg ceFAZolin (ANCEF) 2 g in sterile water 2 0 mL IV push 2 g lactated ringers infusion 500 mL * Agents Name Identified Agent Name O2 N2O Air Sevoflurane (inspired) Nitrous Oxide () * Blood No blood administrations on file. Lines, Drains, and Airways Type Details Placement Removal Peripheral IV Placement Date: 10/09/24; Placement Time: 825; Pre-existing: No; Inserted by?: RN; Size (Gauge): 20 G; Orientation: Left; Site Prep: ChloraPrep; Insertion attempts: 1; Blood draw with insertion?: no; Patient Tolerance: Tolerated well; Removal Date: 10/09/24; Removal Time: 113; Removal Reason: Patient discharged; Catheter Tip: Intact 10/09/24 08 by Allyson Larson RN 10/09/24 113 by Abbi Farmer RN ETT Placement Date: 10/09/24; Placement Time: 09; Placed By: FOXING PAINTER; Induction Type: Pre-O2, IV; Masking: Easy; ETT Type: ETT; Orientation: Right; Size (mm): 7.0; Depth Secured (cm): 22 cm; Cuffed: Cuffed; Cuff Volume: 6 mL; Intubation Method: DL; Cormack_Lehane Glottic Grade: Grade 3 (short chin. poor neck ROM. Anterior airway. base of cords only. Recommend glidescope); Glottic View: Cords Open, Cords Clear; Blade: Greene; Blade Size: 2; Insertion attempts: 1; Difficulty: Easy, Atraumatic; Adjunct Equipment: Stylet; Placement Verification: BBSE, Positive EtCO2, auscultation, capnometry; Teeth and Lips Unchanged: Unchanged; Removal Date: 10/09/24; Removal Time: 1014 10/09/24 0939 by Marline Griffin APRN, CRNA 10/09/24 1014 by Marline Griffin APRN, CRNA Incision/Surgical Site 10/09/24; 0947; # 1; No; Vagina; 10/09/24; 1137 10/09/24 0947 by Alfonso Knight RN 10/09/24 1137 by Abbi Farmer RN documented in this encounter Social History Tobacco Use Types Packs/Day Years Used Date Smoking Tobacco: Never Assessed Comments No Sex and Gender Information Value Date Recorded Sex Assigned at Not on file Legal Sex Female 6:54 AM CDT Gender Identity Not on file Sexual Orientation Not on file documented as of this encounter Progress Notes * Marline Griffin APRN, CRNA - 10/09/2024 12:10 PM CST Addendum created 10/09/24 1210 by Marline Griffin APRN, CRNA Flowsheet accepted E TABLE OPERATOR documented in this encounter Miscellaneous Notes * Anesthesia Postprocedure Evaluation - Autumn Carrillo MD - 10/09/2024 11:09 AM CST [facility] Post-op Note Patient: Sarika Wright Post-Op Diagnosis: Pre-Op Diagnosis Codes: * Kidney stone [N20.0] * Kidney stone on left side [N20.0] Procedures performed: URETEROSCOPY WITH LASER LITHOTRIPSY AND URETERAL STENT PLACEMENT AND RETROGRADE PYELOGRAM (Left: Vagina) Anesthesia Type: General Post-op vital signs: Vitals Value Taken Time BP 145/85 10/09/24 1101 Temp 36.7 ??C (98.1 ??F) 10/09/24 1020 Pulse 65 10/09/24 1108 Resp 16 10/09/24 1045 SpO2 95 % 10/09/24 1108 Vitals shown include unfiled device data. Pain Assessment Preferred Pain Scale: number (Numeric Rating Pain Scale) Last recorded pain score: 0 0 Post-op assessment: Patient location: Phase 2 Airway Status: Patent Cardiovascular function: Satisfactory Hydration status: Satisfactory PONV: None Level of Consciousness: Awake Fully Participates Postop Assessment: Patient tolerated procedure well. Electronically signed by: Autumn Carrillo MD 10/09/2024 11:09 AM E TABLE OPERATOR * Anesthesia Preprocedure Evaluation - Autumn Carrillo MD - 10/09/2024 8:40 AM CST [facility] Anesthesia Pre-op Evaluation Procedure: URETEROSCOPY WITH LASER LITHOTRIPSY AND URETERAL STENT PLACEMENT AND RETROGRADE PYELOGRAM, Left - Vagina HPI: 54 y.o. old female. Pre-Op Diagnosis Codes: * Kidney stone [N20.0] * Kidney stone on left side [N20.0] Last Fluid Intake Time: 2099 Last Fluid Intake Date: 10/08/24 Last Food Intake Date: 10/08/24 Last Food Intake Time: 1999 Allergies Allergen Reactions Latex Unknown Sensitivity (per pt) No past medical history on file. Patient Active Problem List Diagnosis Kidney stone Kidney stone on left side No past surgical history on file. Outpatient Medications as of 10/09/2024 Medication Sig HYDROcodone-acetaminophen (NORCO) 5-325 MG tablet Take 1 Tablet by mouth. ketorolac (TORADOL) 10 MG tablet Take 1 Tablet (10 mg) by mouth every 8 hours. Facility-Administered Medications as of 10/09/2024 Medication Dose Route Frequency ceFAZolin (ANCEF) 2 g in sterile water 20 mL IV push 2 g Intravenous Once dextrose 5 % infusion Intravenous ONCE PRN ePHEDrine 5 mg/mL injection 5-10 mg Intravenous Q5MIN PRN fentaNYL (SUBLIMAZE) injection 25 mcg 25 mcg Intravenous Q5MIN PRN lactated ringers infusion 25 mL/hr Intravenous Continuous lidocaine PF (XYLOCAINE) 1 % injection 0.1-0.3 mL 0.1-0.3 mL Intradermal Once And lidocaine PF (XYLOCAINE) 1 % injection 0.1-0.3 mL 0.1-0.3 mL Intradermal PRN meperidine (DEMEROL) injection 12.5 mg 12.5 mg Intravenous Q5MIN PRN naloxone (NARCAN) injection 0.4 mg 0.4 mg Intravenous Q2MIN PRN Or naloxone (NARCAN) injection 0.04 mg 0.04 mg Intravenous Q2MIN PRN ondansetron (ZOFRAN) injection 4 mg 4 mg Intravenous Q4H PRN Labs: No results found for: SODIUM, K, CHLORIDE, CO2, BUN, CREATININE, GLUCOSE No results found for: WBC, HGB, HCT, PLTS No results found for: INR Blood Bank: No results found for: ABO, ABSCR EKG: No results found for this or any previous visit. Physical Exam: BP (!) 146/81 Pulse 67 Temp 36.3 ??C (97.3 ??F) (Temporal Artery) Resp 16 SpO2 96% Assessment/Plan: Review of Systems Patient does not have GERD. Patient is not a current smoker. The patient denies alcohol use. Patient denies any recent URI. History of PONV: No. History of motion sickness: No. Patient denies any personal or family history of anesthesia complications. NPO Status: Acceptable. Exam Mental Status: Alert and oriented. Mallampati score: II (Two). Mouth opening: Normal Thyromental Distance: > 3 finger breadths and Normal Neck Extension: Full Neck Circumference > 40 cm?: No Current airway assessment:Normal Dentition: Age appropriate. Cardiac Exam: Regular rate and rhythm. Respiratory Exam: Breath sounds clear to auscultation Assessment ASA Status: 2 . Plan Anesthesia type: General and ETT Induction: Intravenous Maintenance: Balanced Postoperative pain management: Plan for postoperative opioid use PONV Risk Score Adult: 3 PONV Prophylaxis (planned): Ondansetron and Decadron Anesthetic plan, risks, benefits and alternatives discussed with the patient who agrees to the anesthesia treatment plan. Possibility of blood products discussed. The patient and/or their sales and marketing representative were notified about the potential risks of damage to the lips, teeth, dental devices, mouth and airway. H&P Reviewed and Patient examined, no change observed IV access Antibiotics per surgery Electronically signed by: Autumn Carrillo MD 10/09/2024 8:40 AM E TABLE OPERATOR documented in this encounter Plan of Treatment Upcoming Encounters Date Type Department Care Team (Late st Contact Info) Description 01/22/2025 11:45 AM CDT Appointment [facility] [address] [facility] [address] [place] [phone] Germain Whitaker MD [address] [place], [place] [id number] 01/25/2025 9:00 AM CDT Phone Visit [facility] [address] [place], [place] [id number] Germain Whitaker MD [address] [place], [place] [phone] documented as of this encounter Visit Diagnoses Not on filedocumented in this encounter Administered Medications Inactive Administered Medications - up to 3 most recent administrations Medication Order MAR Action Action Date Dose Rate Site ceFAZolin (ANCEF) 2 g in sterile water 20 mL IV push 2 g, Intravenous, Administer over 3-5 Minutes, ONCE, On Wed10/09/24 at 0815, For 1 dose, Infuse within 60 minutes prior to incision. Re-dose 1g IV every 4 hours after initial dose until incision closed. Re-dose if more than 1.5 L of blood loss. Pharmacy may adjust for renal insufficiency. Dilute 1 gram vial with 9.6 mL sterile water for slow IV push over 3-5 minutes for adults., Pre-opIndications:Infection prevention Started 10/09/2024 9:41 AM SHAKE TABLE OPERATOR 2 g dexAMETHasone (DECADRON) injection Intravenous, Starting on Wed10/09/24 at 0935, Until Wed10/09/24 at 1020 Given 10/09/2024 9:35 AM SHAKE TABLE OPERATOR 8 mg fentaNYL (SUBLIMAZE) injection Intravenous, Starting on Wed10/09/24 at 0932, Until Wed10/09/24 at 1020 Given 10/09/2024 9:50 AM SHAKE TABLE OPERATOR 50 mcg Given 10/09/2024 9:32 AM SHAKE TABLE OPERATOR 50 mcg ketorolac (TORADOL) injection Intravenous, Starting on Wed10/09/24 at 1000, Until Wed10/09/24 at 1020 Given 10/09/2024 10:00 AM SHAKE TABLE OPERATOR 15 mg lactated ringers infusion 25 mL/hr, Intravenous, CONTINUOUS, Starting on Wed10/09/24 at 0815, Administer on all preop surgery patients, ages 12 and older, unless specified differently in the Protocol for Preop Initiation of IV fluids Order Set., Pre-op Restarted 10/09/2024 10:05 AM SHAKE TABLE OPERATOR Continued by Anesthesia 10/09/2024 9:27 AM SHAKE TABLE OPERATOR 25 mL/hr Started 10/09/2024 8:26 AM SHAKE TABLE OPERATOR 25 mL/hr 25 mL/hr lidocaine PF (XYLOCAINE) 1 % injection Intravenous, Starting on Wed10/09/24 at 0935 Given 10/09/2024 9:35 AM SHAKE TABLE OPERATOR 100 mg midazolam (VERSED) injection Intravenous, Starting on Wed10/09/24 at 0928, Until Wed10/09/24 at 1020 Given 10/09/2024 9:28 AM SHAKE TABLE OPERATOR 2 mg ondansetron (ZOFRAN) injection Intravenous, Starting on Wed10/09/24 at 1000, Until Wed10/09/24 at 1020 Given 10/09/2024 10:00 AM SHAKE TABLE OPERATOR 4 mg propofol (DIPRIVAN) 10 mg/mL injection Intravenous, Starting on Wed10/09/24 at 0935, Until Wed10/09/24 at 1020 Given 10/09/2024 9:35 AM SHAKE TABLE OPERATOR 200 mg propofol (DIPRIVAN) 10 mg/mL injection Intravenous, Starting on Wed10/09/24 at 0935, Until Wed10/09/24 at 1020 Rate/Dose Change 10/09/2024 10:00 AM SHAKE TABLE OPERATOR 100 mcg/kg/min 61.2 mL/hr Started 10/09/2024 9:35 AM SHAKE TABLE OPERATOR 150 mcg/kg/min 91.8 mL/h r rocuronium (ZEMURON) injection Intravenous, Starting on Wed10/09/24 at 0935, Until Wed10/09/24 at 1020 Given 10/09/2024 9:35 AM SHAKE TABLE OPERATOR 50 mg sugammadex (BRIDION) injection Intravenous, Starting on Wed10/09/24 at 1004, Until Wed10/09/24 at 1020 Given 10/09/2024 10:04 AM SHAKE TABLE OPERATOR 200 mg documented in this encounter Care Teams Auto Striper Relationship Specialty Start Date End Date Unassigned, Provider [address] [place] [address] PCP - General 06/22/00 10/16/24 documented as of this encounter
--- OUTSIDE RECORDS SUMMARY | 2024-11-19 22:49 | XMS_ITS | Clinical Summary ---
[facility] Address [address] [place] [address] Care Team Providers Care Senior C Developer Name Role Phone Pcp, Pt Declines Primary Care Provider [phone] Source Comments You are receiving this document as you are listed as the primary care provider,follow-up provider, or the patient has been referred to you for consultation.This is in compliance with the Medicare andMedicaid EHR Incentive Program,which states Providers who transition their patient to another setting of careor provider of care or refers their patient to another provider of care shouldprovide summary care record for each transition of care or referral. [facility] Allergies Active Allergy Reactions Criticality Noted Date Comments Latex Unknown 09/21/2024 Sensitivity (per pt) Medications HYDROcodone-acet aminophen (NORCO) 5-325 MG tablet Take 1 Tablet by mouth. 09/18/2024 Active ketorolac (TORADOL) 10 MG tablet Take 1 Tablet (10 mg) by mouth every 8 hours. 09/18/2024 Active traMADol (ULTRAM) 50 MG tablet Take 1 Tablet (50 mg) by mouth every 6 hours as needed for Pain. 12 Tablet 10/09/2024 Active Active Problems Problem Noted Date Diagnosed Date Kidney stone 09/21/2024 Kidney stone on left side 09/21/2024 Encounters Date Type Department Care Team Description 10/17/2024 1:45 PM CDT Office Visit [facility] [address] [address] [address] [place] [address] Germain Whitaker MD Kidney stone (Primary Dx) 10/13/2024 Telephone [facility] - [facility] [address] [place] [address] Germain Whitaker MD QUESTIONS, GENERAL 10/10/2024 Telephone [facility] - Urology [address] [place] [address] Germain Whitaker MD Discharge Follow Up Call 10/09/2024 9:27 AM MANAGER PHILOSOPHY Anesthesia Event [facility] [address] [place] [address] Autumn Carrillo MD Wolpers, Wendy A, BAIT PACKER, RESIDENTIAL TEAM LEADER 10/09/2024 9:10 AM MANAGER PHILOSOPHY Ancillary Procedure [facility] [address] [address]iology [address] [place] [address] Germain Whitaker MD Surgery, elective 10/09/2024 9:00 AM MANAGER PHILOSOPHY - 10/09/2024 10:15 AM MANAGER PHILOSOPHY Surgery [facility] [address] [place] [address] Germain Whitaker MD URETEROSCOPY WITH LASER LITHOTRIPSY AND URETERAL STENT PLACEMENT AND RETROGRADE PYELOGRAM 10/09/2024 8:20 AM MANAGER PHILOSOPHY Ancillary Procedure [facility] [address] [place] [address] Germain Whitaker MD 10/09/2024 7:40 AM MANAGER PHILOSOPHY - 10/09/2024 11:36 AM MANAGER PHILOSOPHY Hospital Encounter [facility] [address] [place] [address] Germain Whitaker MD Discharge Disposition: Home 10/09/2024 Orders Only HIM DEPARTMENT Provider, MD Luciana 09/21/2024 11:15 AM MANAGER PHILOSOPHY Office Visit [facility] - Urology [address] [place] [address] Odessa Christian PA-C Kidney stone (Primary Dx); Kidney stone on left side 09/21/2024 10:25 AM MANAGER PHILOSOPHY Ancillary Procedure [facility] [address] [place] [address] Odessa Christian PA-C Kidney stone 09/19/2024 Notes/Orders [facility] - Urology [address] [place] [address] Denyjudith Odessa Woodward PA-C Kidney stone (Primary Dx) 09/18/2024 8:00 PM MANAGER PHILOSOPHY Ancillary Procedure Radiology [facility] [address] [place] [address] Provider, Foreign Images from Last 3 Months Social History Tobacco Use Types Packs/Day Years Used Date Smoking Tobacco: Never Assessed Comments No Sex and Gender Information Value Date Recorded Sex Assigned at Not on file Legal Sex Female 6:54 AM CDT Gender Identity Not on file Sexual Orientation Not on file Last Filed Vital Signs Vital Sign Reading Time Taken Comments Blood Pressure 145/85 10/09/2024 11:00 AM MANAGER PHILOSOPHY Pulse 74 10/09/2024 11:00 AM MANAGER PHILOSOPHY Temperature 36.7 C (98.1 F) 10/09/2024 10:20 AM MANAGER PHILOSOPHY Respiratory Rate 16 10/09/2024 11:00 AM MANAGER PHILOSOPHY Oxygen Saturation 93% 10/09/2024 11:00 AM MANAGER PHILOSOPHY Inhaled Oxygen Concentration - - Weight 102.5 kg (226 lb) 09/21/2024 11:53 AM MANAGER PHILOSOPHY Height 162.6 cm (5' 4) 09/21/2024 11:53 AM MANAGER PHILOSOPHY Body Mass Index 38.79 09/21/2024 11:53 AM MANAGER PHILOSOPHY Plan of Treatment Upcoming Encounters Date Type Department Care Team (Late st Contact Info) Description 01/22/2025 11:45 AM CDT Appointment [facility] [address] [address] [place] [address] Germain Whitaker MD [address] [place] [address] 01/25/2025 9:00 AM CDT Phone Visit [facility] - Urology [address] [place] [address] Germain Whitaker MD [address] [place] [address] Health Maintenance Due Date Last Done Comments Cervical Cancer Screening Due 1970 Colon Cancer Screening Plan Due 1970 Diabetes Screening- (based on age and BMI) 1970 Hep C Screening (Preventive Services) 1970 Adult Preventive Visit 1988 HepB (1) 1989 Cholesterol 2015 Pneumococcal 50+ Yrs (1 of 1 - PCV) 2020 Mammogram 06/29/2024 06/29/2023, 04/0 08/2021, 10/10/2019 DTaP/Tdap/Td (3 - Tdap) 07/20/2032 07/20/2022, 05/09 HIV Screening (Preventive Services) Completed 05/25/2012 Zoster/Shingles Completed 07/20/2022, 11/07/2021 COVID-19 Vaccine Completed 05/04/2024, , 05/11/2022, Additional history exists Influenza Completed 05/04/2024, 05/09, 06/17/2022, Additional history exists HepA Aged Out No longer eligi ble based on patient's age to complete this topic Hib Aged Out No longer eligi ble based on patient's age to complete this topic IPV (Polio) Aged Out No longer eligi ble based on patient's age to complete this topic MCV4 Aged Out No longer eligi ble based on patient's age to complete this topic Meningococcal B Aged Out No longer el igible based on patient's age to complete this topic Medical Devices Explanted Type Area Sales Support Technician Device Identifier Shelf Expiration Date Model / Serial / Lot Stent Ureteral Inlay 6fr 26cm - [id number] Implanted:Qty: 1 on 10/09/2024 by Germain Whitaker MD at [facility] Surgery [facility] Explanted:Qty: 1 on 10/17/2024 by Germain Whitaker MD DEVICE Left: URETER [employer] 03/08/2029 [id number] / / [id number] Procedures Procedure Name Priority Date/Time Associated Diagnosis Comments FL C ARM Routine 10/09/2024 10:00 AM MANAGER PHILOSOPHY Surgery, elective CYSTOSCOPY,RETROGRAD E PYELOGRAM,URETEROSCO PY,HOLMIUM LASER LITHOTRIPSY OF STONE,URETERAL STENT PLACEMENT 10/09/2024 9:16 AM MANAGER PHILOSOPHY Kidney stone Kidney stone on left side HCG,QUALITATIVE, SERUM STAT 10/09/2024 8:45 AM MANAGER PHILOSOPHY POCT URINE Routine 10/09/2024 8:25 AM MANAGER PHILOSOPHY TAWANDA INLIGHT CAMERA IMAGES Routine 10/09/2024 8:17 AM MANAGER PHILOSOPHY EKG 10/09/2024 XR ABD FLAT/KUB 1 VIEW Routine 09/21/2024 10:33 AM MANAGER PHILOSOPHY Kidney stone FOREIGN IMAGE(S) CT ABDOMEN/PELVIS Routine 09/18/2024 8:00 PM MANAGER PHILOSOPHY from Last 3 Months Results * FL C Arm (10/09/2024 10:00 AM MANAGER PHILOSOPHY) Anatomical Region Laterality Modality Radio Fluoroscop y Narrative 10/09/2024 11:39 AM MANAGER PHILOSOPHY These images were obtained during a surgical procedure. us Germain Whitaker MD [facility] Final Result * Test Screen Blood (10/09/2024 8:45 AM MANAGER PHILOSOPHY) HCG, Serum Qual Negative Negative 10/09/2024 9:19 AM MANAGER PHILOSOPHY [facility] Blood Venipuncture / Unknown 10/09/2024 8:45 AM MANAGER PHILOSOPHY 10/09/2024 8:48 AM MANAGER PHILOSOPHY us Autumn Carrillo MD LAB_1 Final Result [facility] [address] [place] [address] * (ABNORMAL) POCT urine (10/09/2024 8:25 AM MANAGER PHILOSOPHY) Urine Test - POC Positive(A ) Negative POCT Control Line Present, Clear Background - Internal control Yes POCT Cartridge Lot # [id number] POCT Urine 10/09/2024 8:25 AM MANAGER PHILOSOPHY us Germain Whitaker MD ET POINT OF CARE TEST ENTER/E DIT ORDERABLES Final Result POCT * TAWANDA Inlight Camera Images (10/09/2024 8:17 AM MANAGER PHILOSOPHY) Anatomical Region Laterality Modality Endoscopy Narrative 10/09/2024 8:17 AM MANAGER PHILOSOPHY These images were obtained during a surgical procedure. us Germain Whitaker MD RAD NON-REPORTABLES Final Res ult * EKG (10/09/2024) us Interface Provider EKG Final Resu lt * XR Abd Flat/KUB 1 View (09/21/2024 10:33 AM MANAGER PHILOSOPHY) Anatomical Region Laterality Modality Abdomen Digital Radiogra phy 09/21/2024 10:2 7 AM MANAGER PHILOSOPHY Narrative 09/21/2024 11:07 AM MANAGER PHILOSOPHY COMPARISON: None. FINDINGS: 9 mm calcification projecting over the expected location of the left renal hilum. Consider obtaining a renal ultrasound to exclude hydronephrosis. Normal bowel gas pattern. Normal amount of stool. No gross free air. No acute osseous finding. Procedure Note Nishant Crespo MD - 09/21/2024 COMPARISON: None. FINDINGS: 9 mm calcification projecting over the expected location of theleft renal hilum. Consider obtaining a renal ultrasound to excludehydronephrosis. Normal bowel gas pattern. Normal amount of stool. No grossfree air. No acute osseous finding. us Odessa Christian PA-C RAD GD Final R esult * Foreign Image(S) CT Abdomen/Pelvis (09/18/2024 8:00 PM MANAGER PHILOSOPHY) Narrative POCT - 09/24/2024 7:59 PM MANAGER PHILOSOPHY These outside images have been uploaded into PACS. If the results were provided, they will be located in the patient's chart under the Media or Imaging tab. us Foreign Images Provider RAD NON-REPORTABLES Florina l Result POCT from Last 3 Months Insurance [employer] Care Teams Senior C Developer Relationship Specialty Start Date End Date Pcp, [place] [address] PCP - General 10/17/24
--- OUTSIDE RECORDS SUMMARY | 2024-11-19 22:49 | XMS_ITS | Encounter Summary ---
[facility] Address [address] [place] [address] Care Team Providers Care Spring Forger Name Role Phone Unassigned, Provider Primary Care Provider Unava ilable Reason for Visit * Auth/Cert (Routine) Specialty Diagnoses / Procedures Referred By Irina phillips Referred To Contact Diagnoses Kidney stone Kidney stone on left side Procedures URETEROSCOPY WITH LASER LITHOTRIPSY AND URETERAL STENT PLACEMENT AND RETROGRADE PYELOGRAM Referral ID Status Reason Start Date Expiration Date Visits Re quested Visits Authorized [id number] 1 1 Encounter Details Date Type Department Care Team (Late st Contact Info) Description 10/09/2024 9:00 AM CYLINDER INSPECTOR - 10/09/2024 10:15 AM CYLINDER INSPECTOR [facility] [address] [place] [address] Germain Whitaker MD [address] [place] [address] URETEROSCOPY WITH LASER LITHOTRIPSY AND URETERAL STENT PLACEMENT AND RETROGRADE PYELOGRAM Social History Tobacco Use Types Packs/Day Years Used Date Smoking Tobacco: Never Assessed Comments Unknown Sex and Gender Information Value Date Recorded Sex Assigned at Not on file Legal Sex Female 6:54 AM CDT Gender Identity Not on file Sexual Orientation Not on file documented as of this encounter Last Filed Vital Signs Vital Sign Reading Time Taken Comments Blood Pressure 146/81 10/09/2024 8:19 AM CYLINDER INSPECTOR Pulse 67 10/09/2024 8:19 AM CYLINDER INSPECTOR Temperature 36.3 C (97.3 F) 10/09/2024 8:19 AM CYLINDER INSPECTOR Respiratory Rate 16 10/09/2024 8:19 AM CYLINDER INSPECTOR Oxygen Saturation 96% 10/09/2024 8:19 AM CYLINDER INSPECTOR Inhaled Oxygen Concentration - - Weight - - Height - - Body Mass Index - - documented in this encounter Medications at Time of Discharge HYDROcodone-aceta minophen (NORCO) 5-325 MG tablet Take 1 Tablet by mouth. 09/18/2024 ketorolac (TORADOL) 10 MG tablet Take 1 Tablet (10 mg) by mouth every 8 hours. 09/18/2024 traMADol (ULTRAM) 50 MG tablet Take 1 Tablet (50 mg) by mouth every 6 hours as needed for Pain. 12 Tablet 10/09/2024 cephalexin (KEFLEX) 500 MG capsule Take 1 Capsule (500 mg) by mouth three times a day for 3 days. 9 Capsule 10/09/2024 10/12/2024 documented as of this encounter Progress Notes * Allyson Larson RN - 10/05/2024 8:12 AM CST PPA call completed by calling [phone] and spoke to patient. Advised of arrival time 0800. Pt states her preop MD yesterday is sending her for a stress test today. Will await results for clearance. Reviewed pre-procedure questions, detailed instructions with NPO guidelines and address given. Advised of visitor guidelines (1 visitor, 18+ yr in age for adults and 2 parents or legal guardians- peds) All questions answered, no other needs at this time. NDER INSPECTOR documented in this encounter H&P Notes * Germain Whitaker MD - 10/09/2024 9:01 AM CST Surgery Update for Preop History and Physical For 10/09/2024 scheduled procedure Update to H&P includes: Patient and/or family denies any health changes since the H&P This patient has been evaluated by me today and has been found to be a suitable candidate for surgery. 10/09/2024 NDER INSPECTOR Source Note - Maryjane Parra DO - 10/04/2024 7:30 AM CYLINDER INSPECTOR Images from the original note were not included. [facility] Preoperative Consultation Sarika Wright : 1970 Gender: female Date of Encounter: 10/04/2024 Nursing Notes: Polly Florence MA 10/04/2024 7:44 AM Signed Chief Complaint Patient presents with ??? Pre-Op Exam 10/09/24 Ureteroscopy with Laser Lithotripsy and Ureteral Stent Placement [facility] Dr. Germain Whitaker Additional visit information (chief complaint/health maintenance) shared by patient: Health Maintenance Due Topic Date Due ??? Pneumococcal series for age 50+ (1 of 1 - PCV) Never done ??? Mammogram for age 45-75 06/29/2024 ??? Depression screening for age 12+ 07/15/2024 Health maintenance reviewed with patient No Patient presents for an in-person office visit: alone Communication Method: Patient is active on [employer] and has been instructed that results/communications will be made via [employer] If a phone call is needed, the preferred number is: Mobile May we leave a detailed message at this number? Yes BP 120/84 (Cuff Site: Right Arm, Position: Sitting, Cuff Size: Adult Large) Pulse 71 Ht 1.66 m (5' 5.35) Wt 101.9 kg (224 lb 9.6 oz) LMP 07/13/2024 (Exact Date) BMI 36.97 kg/m?? CITLALI Ledbetter, 10/04/2024, 7:32 AM History of Present Illness Sarika Wright is a 54 yo F who presents today for pre-op evaluation. Will be having ureteroscopy with laser lithotripsy for 7.4 mm calculus in L renal pelvis. Continuesto have episodic discomfort with this. Not using toradol or Vicodin. Treating pain with heating pad, ibuprofen, and rest. Shares that she has been having episodes of chest discomfort - had one yesterday. Before that, happened a few days prior. Describes as a clenching feeling in the upper chest on both sides that lasts for a few seconds and then releases. Wonders if it's due to stress. No shortness of breath with these episodes, but has had some shortness of breath recently - notices with activity when she is up walking around and taking the dog out. Doesn't feel like she can't breath, just that she has to take a deep breath. No n/v, arm pain, nausea during these episodes. Just a clench that lasts a few seconds. Doesn't always happen with activity, but sometimes it does. Happens mostly when sitting down. Pain happens at least weekly for the past 2-3 weeks. Has been told in the past she has costochondritis several years ago. Has not had stress testing in the past. Pain is not reproducible. Does not seem to worsen with movement. Has tried to press on the area where there is pain when it is happening but it doesn't seem to exacerbate the pain. No fevers. Had an episode of epistaxis recently (2 days ago) that she has never experienced before.Had some eye crusting a few days ago as well. No prior difficulties with anesthesia. Review of Systems Pertinent ROS noted in HPI. Patient Active Problem List Diagnosis Code ??? BMI 36.0-36.9,adult Z68.36 ??? Vitamin D deficiency E55.9 ??? Pap smear for cervical cancer screening Z12.4 Current Outpatient Medications Medication Sig ??? HYDROcodone-acetaminophen (5-325 mg/tablet) Take 1 Tablet by mouth every 4 hours if needed. ??? ketorolac (TORADOL) 10 mg tablet Take 10 mg by mouth three times daily. No current facility-administered medications for this visit. Allergies Allergen Reactions ??? Latex Rash Past Surgical History: . Laterality Date ??? SECTION 06/16/2010 marginal placenta previa ??? COLONOSCOPY DIAGNOSTIC 1996 ??? RI UNLISTED PROCEDURE VESTIBULE MOUTH 1994 ??? TONSILLECTOMY 1976 Social History Tobacco Use ??? Smoking status: Never ??? Smokeless tobacco: Never ??? Tobacco comments: no exposure Vaping Use ??? Vaping status: Never Used Substance Use Topics ??? Alcohol use: Yes Comment: rarely less than once a month ??? Drug use: No Family History Problem Relation Age of Onset ??? Hypertension Father ??? Hyperlipidemia Father ??? Heart Disease Maternal Grandfather ??? Stroke Mother 76 ??? Heart attack Sister 63 ??? Premature CHD (under age 60) No Family History ??? Cancer-breast No Family History PAST DIFFICULTY WITH ANESTHESIA: None Physical Exam BP 120/84 (Cuff Site: Right Arm, Position: Sitting, Cuff Size: Adult Large) Pulse 71 Ht 1.66 m (5' 5.35) Wt 101.9 kg (224 lb 9.6 oz) LMP 07/13/2024 (Exact Date) BMI 36.97 kg/m?? Body mass index is 36.97 kg/m??. Gen: alert, pleasant, NAD Head: Normocephalic/atraumatic Eyes: no conjunctival injection, EOMI Ears: external ears normal, TMs poole with normal light reflex Nose: no nasal discharge. Mouth: moist oral mucosa; no erythema or exudate Neck: No LAD/masses/thyromegaly Lungs: CTA B/l, breathing comfortably on room air Heart: RRR, no M/G/R Abdomen: soft, non tender, non distended, no masses, neg Medrano/Mcburney's, no rebound/guarding Lymphatics: No edema Neuro: A & O x 3, moves all extremities, no focal deficits Psych: Behavior appropriate. Thought processes congruent, non tangential. Musculoskeletal: No gross deformities; sternum and upper ribs are nontender to palpation Skin: No rashes or lesions on exposed skin Assessment / Plan The Pre-Op Tool Recommendations Low Risk Procedure Cardiac History No history of coronary artery disease Labs No routine labs indicated EKG Not indicated Stress Testing Not indicated * Testing recommendations are intended to assist, but not direct, clinical decisions. Okay to take Acetaminophen (Tylenol) up until the procedure Hold NSAIDs for at least 2 days prior to surgery. * Medication recommendations are not intended to be exhaustive; they are limited to common medications that are potentially dangerous if incorrectly managed Labs * Data supports elimination of ???routine??? laboratory testing in favor of focused, ???indicated??? testing based on medical co-morbidities. A 2008 study randomized 1061 patients undergoing ambulatory, non-cataract surgery to routine or to indicated testing. Perioperative adverse events were similar (Anesthesia & Analgesia 2009;108:467-75; Anesthesiol. Clin. 2016 Mar;34(1):43-58). EKG * The ACC/AHA recommends against obtaining routine EKGs in patients undergoing low risk surgeries, a class IIa recommendation (JACC. 2014;64(21);e1-76). Session ID: [id number] Endnotes and bibliography available upon request: [email or web address] Labs: no ECG: yes - NSR, T wave progression unchanged from prior EKG in 2013 ICD-10-CM 1. Pre-op exam Z01.818 ECHO STRESS TREADMILL 2. Kidney stone N20.0 3. Chest pain in adult R07.9 RI READING EKG - NO CHARGE, COMP ONLY EKG 12 LEAD RI ECG ROUTINE ECG W/LEAST 12 LDS W/I&R ECHO STRESS TREADMILL Given episodic chest clenching symptoms, recommend that patient has stress echo prior to surgery to evaluate further. Fortunately, has had normal echo prior in Aug [address] coronary artery calcium score of zero in Jul 2023. Still, feel that functional evaluation of her heart would be [place]. Not on any medication otherwise. Instructed her to hold NSAIDs prior to procedure. Can utilize Tylenol for pain. Patient is not cleared, until stress test is completed, for planned procedure. Electronically Signed by: Maryjane Parra DO 10/04/2024 ADDENDUM: Patient had stress echo on 10/05/24 that was negative for ischemia. She is cleared for planned procedure. Maryjane Parra DO .................... 10/05/2024 3:11 PM NDER INSPECTOR NDER INSPECTOR documented in this encounter Procedure Notes * Germain Whitaker MD - 10/09/2024 10:07 AM CST PATIENT NAME: Sarika Wright DATE OF SERVICE: 10/09/2024 PREOPERATIVE DIAGNOSIS: LEFT kidney stone POSTOPERATIVE DIAGNOSIS: Same OPERATION PERFORMED: 1. Cystoscopy 2. left retrograde pyelogram with fluoroscopic interpretation 3. left ureteroscopy, laser lithotripsy, stone basket manipulation and ureteral stent placement. SURGEON: Germain Whitaker MD ANESTHESIOLOGIST: Anesthesiologist: Autumn Carrillo MD WILDLIFE CONSERVATIONIST: Marline Griffin APRN, CRNA ANESTHESIA: General endotracheal. ESTIMATED BLOOD LOSS: <5 mL. INTRAVENOUS FLUIDS: See record DRAINS: 6-Croatian x 26 cm left double-J ureteral stent. COMPLICATIONS: None. FINDINGS: Left kidney stone, dusted completely SPECIMEN: none QUALITY INDICATORS: IV ancef INDICATION FOR PROCEDURE: Sarika Wright is a 54 y.o. female with a history of a left sided kidney stone, brought to the OR today for the above listed procedure. PROCEDURE IN DETAIL: The patient was identified in Preoperative Holding and consents for the operation were confirmed. She was transferred to the Operating Room and placed in supine position. Anesthesia was then induced without complication. An upper body warmer and bilateral SCDs had been applied and IV abx were administered. Patient was repositioned in dorsal lithotomy and the genitalia were prepped and draped in the usual sterile fashion. A 22-Croatian rigid cystoscope was inserted atraumatically into the bladder and cystoscopy revealed bilateral ureteral orifices in orthotopic position. There were no mucosal abnormalities on brief pancystoscopy. The left ureteral orifice was cannulated with a Sensor wire and an open ended catheter. The wire was removed and a retrograde pyelogram was performed. Interpretation of left retrograde pyelogram: This revealed no hydronephrosis,and no ureteral stricture or filling defects. A Sensor guidewire was advanced through the catheter to the proximal collecting system under fluoroscopic guidance and the catheter and cystoscope were back- loaded off the wire. The wire was snapped as a safety wire. The cystoscope was then reinserted and a 0.035-inch Amplatz guidewire was advanced to the proximal collecting system under fluoroscopic guidance. A 12-Croatian x 14-Croatian x 36 cm ureteral access sheath was advanced over the Amplatz wire under fluoroscopic guidance. The inner obturator and Amplatz wire were removed. The flexible ureteroscope wasadvanced to the kidney. The stone was located in the renal pelvis. The stone was dusted completely using a 200 micron laser fiber. It dusted well. All calyces were then interrogated with the ureteroscope and revealed no evidence of remaining stones. Then pullback ureteroscopy was then performed to clear the ureter. There was no evidence of residual stones or ureteral injuries. The cystoscope was then re-loaded over the indwelling safety wire and a 6-Croatian x 26 cm double-J ureteral stent was advanced over the wire to the kidney under fluoro and direct vision. The bladder was then drained and the cystoscope was removed. A garzon catheter was not indicated. She was repositioned in supine and awoken from anesthesia, having tolerated the procedure well. DISPOSITION: PACU then home. RTC as scheduled for LEFT stent removal. NDER INSPECTOR documented in this encounter Plan of Treatment Upcoming Encounters Date Type Department Care Team (Late st Contact Info) Description 01/22/2025 11:45 AM CDT Appointment [facility] [address] Ultrasound [address] [place] [id number] Germain Whitaker MD [address] [place] [address] 01/25/2025 9:00 AM CDT Phone Visit [facility] - Urology [address] [facility] [place] [address] Germain Whitaker MD [address] [place] [address] documented as of this encounter Procedures Procedure Name Priority Date/Time Associated Diagnosis Comments CYSTOSCOPY,RETROGRAD E PYELOGRAM,URETEROSCO PY,HOLMIUM LASER LITHOTRIPSY OF STONE,URETERAL STENT PLACEMENT 10/09/2024 9:16 AM CYLINDER INSPECTOR Kidney stone Kidney stone on left side HCG,QUALITATIVE, SERUM STAT 10/09/2024 8:45 AM CYLINDER INSPECTOR POCT URINE Routine 10/09/2024 8:25 AM CYLINDER INSPECTOR TAWANDA INLIGHT CAMERA IMAGES Routine 10/09/2024 8:17 AM CYLINDER INSPECTOR documented in this encounter Results * Test Screen Blood (10/09/2024 8:45 AM CYLINDER INSPECTOR) HCG, Serum Qual Negative Negative 10/09/2024 9:19 AM CYLINDER INSPECTOR [facility] Blood Venipuncture / Unknown 10/09/2024 8:45 AM CYLINDER INSPECTOR 10/09/2024 8:48 AM CYLINDER INSPECTOR Autumn Carrillo MD LAB_1 Final Result [facility] [address] [place] [address] * (ABNORMAL) POCT urine (10/09/2024 8:25 AM CYLINDER INSPECTOR) Urine Test - POC Positive(A ) Negative POCT Control Line Present, Clear Background - Internal control Yes POCT Cartridge Lot # [id number] POCT Urine 10/09/2024 8:25 AM CYLINDER INSPECTOR Germain Whitaker MD ET POINT OF CARE TEST ENTER/E DIT ORDERABLES Final Result POCT * TAWANDA Inlight Camera Images (10/09/2024 8:17 AM CYLINDER INSPECTOR) Anatomical Region Laterality Modality Endoscopy Narrative 10/09/2024 8:17 AM CYLINDER INSPECTOR These images were obtained during a surgical procedure. Germain Whitaker MD RAD NON-REPORTABLES Final Res ult documented in this encounter Visit Diagnoses Diagnosis Kidney stone Calculus of kidney Kidney stone on left side Calculus of kidney Kidney stone Calculus of kidney Kidney stone on left side Calculus of kidney documented in this encounter Admitting Diagnoses Diagnosis Kidney stone Calculus of kidney Kidney stone on left side Calculus of kidney documented in this encounter Administered Medications Inactive Administered Medications - up to 3 most recent administrations Medication Order MAR Action Action Date Dose Rate Site acetaminophen (TYLENOL) tablet 650 mg 650 mg, Oral, Q6H PRN, Other, Mild Pain (pain score 1-4), Starting on Wed10/09/24 at 1021, Until Wed10/09/24 at 1342, Give for mild pain or if patient prefers acetaminophen over other options for pain (all pain scores)., Post-op Given 10/09/2024 11:17 AM CYLINDER INSPECTOR 650 mg dextrose 5 % infusion Intravenous, at 250 mL/hr, ONCE PRN, Other, for nausea if all other options have failed and patient is not diabetic., Starting on Wed10/09/24 at 0715, For 1 dose, PACU/Recovery ePHEDrine 5 mg/mL injection 5-10 mg, Intravenous, [id number], Other, For systolic blood pressure less than 90 mmHg, Starting on Wed10/09/24 at 0715, Until Wed10/09/24 at 1342, Repeat every 5 minutes to a maximum cumulative dose of 15 mg. Notify anesthesiologist if med is given., PACU/Recovery fentaNYL (SUBLIMAZE) injection 25 mcg 25 mcg, Intravenous, [id number], Pain, The immediate postop period when faster on-set, short acting agent is desired., Starting on Wed10/09/24 at 0715, Until Wed10/09/24 at 1342, Administer every 5 minutes as needed, to a maximum cumulative dose of 250 mcg. Call Anesthesiologist if additional or greater doses needed For patients with a regional, spinal, or local anesthetic, may give for anticipated pain as the anesthetic wears off. Use fentanyl initially for a short acting agent for treatment of acute post-operative pain. May be used in conjunction with alonger acting agent if ordered for optimal pain control. Respiratory rate must be greater than 10 to administer medications., PACU/Recovery iohexol (OMNIPAQUE 300) 300 MG/ML injection ONCE PRN, Starting on Wed10/09/24 at 1010, Until Wed10/09/24 at 1342, Intra-op Given 10/09/2024 10:10 AM CYLINDER INSPECTOR 1.5 mL Wound Site lactated ringers infusion 25 mL/hr, Intravenous, CONTINUOUS, Starting on Wed10/09/24 at 0815, Administer on all preop surgery patients, ages 12 and older, unless specified differently in the Protocol for Preop Initiation of IV fluids Order Set., Pre-op Restarted 10/09/2024 10:05 AM CYLINDER INSPECTOR Continued by Anesthesia 10/09/2024 9:27 AM CYLINDER INSPECTOR 25 mL/hr Started 10/09/2024 8:26 AM CYLINDER INSPECTOR 25 mL/hr 25 mL/hr lidocaine PF (XYLOCAINE) 1 % injection 0.1-0.3 mL 0.1-0.3 mL, Intradermal, PRN, Other, for additional IV starts, Starting on Wed10/09/24 at 0748, Pre-op meperidine (DEMEROL) injection 12.5 mg 12.5 mg, Intravenous, [id number], Shivering, Starting on Wed10/09/24 at 0715, Until Wed10/09/24 at 1342, For 2 doses, Maximum cumulative dose is 25 mg. Do not give to patients receiving MAO inhibitors (e.g. phenelzine (NARDIL), tranylcypromine (PARNATE), selegiline (ELDEPRYL))., PACU/Recovery naloxone (NARCAN) injection 0.04 mg 0.04 mg, Intravenous, Q2MIN PRN, Opioid Reversal, Non-Emergent Opioid Reversal (Respiratory Rate less than 8 breaths per minute or difficult to arouse), Starting on Wed10/09/24 at 0715, Until Wed10/09/24 at 1342, Dilution Instructions: Dilute 1 mL of 0.4 mg/mL naloxone vial into 9 mL of normal saline to make a final concentration of 0.04 mg/mL. Discard dose if not used within 1 hour. Use 1 mL of diluted 0.04 mg/mL strength slow IV push over 1 minute. Give first dose, notify practitioner, and continue to observe. Repeat for up to 5 doses per episode until patient is arousable and can take deep breaths. If no improvement in respiratory rate or remains difficult to arouse notify practitioner for additional orders. , PACU/Recovery naloxone (NARCAN) injection 0.4 mg 0.4 mg, Intravenous, Q2MIN PRN, Opioid Reversal, Emergent Opioid Reversal (Respiratory Rate less than 6 breaths per minute or unresponsive to physical stimulation), Starting on Wed10/09/24 at 0715, Until Wed10/09/24 at 1342, Give first dose, notify practitioner, and continue to observe. Repeat for up to 5 doses per episode until patient is responsive to physical stimulation and can take deep breaths. , PACU/Recovery ondansetron (ZOFRAN) injection 4 mg 4 mg, Intravenous, Q4H PRN, Nausea, Vomiting, Starting on Wed10/09/24 at 0715, Until Wed10/09/24 at 1342, If multiple medications are ordered for nausea or vomiting - administer in the following priority based on medications ordered, effectiveness and availability: ondansetron (ZOFRAN) > prochlorperazine (COMPAZINE) > diphenhydrAMINE (BENADRYL) > hydrOXYzine HCl (VISTARIL)> ePHEDrine > scopolamine (TRANSDERM-SCOP)., PACU/Recovery sterile water for irrigation ONCE PRN, Starting on Wed10/09/24 at 1010, Intra-op Given 10/09/2024 10:10 AM CYLINDER INSPECTOR 1,000 mL documented in this encounter Active and Recently Administered Medications Times are shown in CYLINDER INSPECTOR. Scheduled Medication Order 10/07/2024 10/08/2024 10/09/2024 ceFAZolin (ANCEF) 2 g in sterile water 20 mL IV push (COMPLETED) 2 g, Intravenous, Administer over 3-5 Minutes, [...] IV push over 3-5 minutes for adults., Pre-op 0941 (Started - Prov ider: Marline Griffin, SUPERVISOR CONTINGENTS, WILDLIFE CONSERVATIONIST) lidocaine PF (XYLOCAINE) 1 % injection 0.1-0.3 mL(Linked Group 1) 0.1-0.3 mL, Intradermal, ONCE, On Wed10/09/24 at 0815, For 1 dose, Lidocaine to be used for IV starts unless patient refuses., Pre-op 0815 (Due) Continuous Medication Order 10/07/2024 10/08/2024 10/09/2024 lactated ringers infusion 25 mL/hr, Intravenous, CONTINUOUS, Starting on Wed10/09/24 at 0815, Administer on all preop surgery patients, ages 12 and older, unless specified differently in the Protocol for Preop Initiation of IV fluids Order Set., Pre-op 08 (Started - Prov ider: Allyson Larson RN)0927 (Continued by Anesthesia - Provider: Marline Griffin APRN, CRNA)1004 (Stopped - Provider: Marline Griffin APRN, CRNA - Comment: Switch to gravity)1005 (Restarted - Provider: Marline Griffin APRN, CRNA)1342 (Due: Order Ending - Provider: Inpatient Template Epicmd - Comment: [Order ends at this time. Document a Stopped action when infusion is complete.]) PRN Medication Order 10/07/2024 10/08/2024 10/09/2024 acetaminophen (TYLENOL) tablet 650 mg 650 mg, Oral, Q6H PRN, Other, Mild Pain (pain score 1-4), Starting on Wed10/09/24 at 1021, Until Wed10/09/24 at 1342, Give for mild pain or if patient prefers acetaminophen over other options for pain (all pain scores)., Post-op 1117 (Given - Provid er: Abbi Farmer RN) dextrose 5 % infusion Intravenous, at 250 mL/hr, ONCE PRN, Other, for nausea if all other options have failed and patient is not diabetic., Starting on Wed10/09/24 at 0715, For 1 dose, PACU/Recovery ePHEDrine 5 mg/mL injection 5-10 mg, Intravenous, [id number], Other, For systolic blood pressure less than 90 mmHg, Starting on Wed10/09/24 at 0715, Until Wed10/09/24 at 1342, Repeat every 5 minutes to a maximum cumulative dose of 15 mg. Notify anesthesiologist if med is given., PACU/Recovery fentaNYL (SUBLIMAZE) injection 25 mcg 25 mcg, Intravenous, [id number], Pain, The immediate postop period when faster on-set, short acting agent is desired., Starting on Wed10/09/24 at 0715, Until Wed10/09/24 at 1342, Administer every 5 minutes as needed, to a maximum cumulative dose of 250 mcg. Call Anesthesiologist if additional or greater doses needed For patients with a regional, spinal, or local anesthetic, may give for anticipated pain as the anesthetic wears off. Use fentanyl initially for a short acting agent for treatment of acute post-operative pain. May be used in conjunction with alonger acting agent if ordered for optimal pain control. Respiratory rate must be greater than 10 to administer medications., PACU/Recovery HYDROmorphone (DILAUDID) injection 0.3-0.5 mg 0.3-0.5 mg, Intravenous, Q3H PRN, Other, Severe Pain (pain score 8-10) if patient unable to take PO, Starting on Wed10/09/24 at 1021, Until Wed10/09/24 at 1342, Severe Pain (pain score 8-10) if patient unable to take PO. Hold if on TEACHERS' ASSISTANT, Post-op iohexol (OMNIPAQUE 300) 300 MG/ML injection ONCE PRN, Starting on Wed10/09/24 at 1010, Until Wed10/09/24 at 1342, Intra-op 1010 (Given - Provid er: Germain Whitaker MD) ketorolac (TORADOL) injection 15 mg 15 mg, Intravenous, Q6H PRN, Other, inflammatory pain, Starting on Wed10/09/24 at 1021, Until Wed10/09/24 at 1342, For 3 days, If unable to tolerate oral inflammatory pain medication., Post-op lidocaine PF (XYLOCAINE) 1 % injection 0.1-0.3 mL(Linked Group 1) 0.1-0.3 mL, Intradermal, PRN, Other, for additional IV starts, Starting on Wed10/09/24 at 0748, Pre-op meperidine (DEMEROL) injection 12.5 mg 12.5 mg, Intravenous, [id number], Shivering, Starting on Wed10/09/24 at 0715, Until Wed10/09/24 at 1342, For 2 doses, Maximum cumulative dose is 25 mg. Do not give to patients receiving MAO inhibitors (e.g. phenelzine (NARDIL), tranylcypromine (PARNATE), selegiline (ELDEPRYL))., PACU/Recovery naloxone (NARCAN) injection 0.04 mg(Linked Group 2) 0.04 mg, Intravenous, Q2MIN PRN, Opioid Reversal, Non-Emergent Opioid Reversal (Respiratory Rate less than 8 breaths per minute or difficult to arouse), Starting on Wed10/09/24 at 0715, Until Wed10/09/24 at 1342, Dilution Instructions: Dilute 1 mL of 0.4 mg/mL naloxone vial into 9 mL of normal saline to make a final concentration of 0.04 mg/mL. Discard dose if not used within 1 hour. Use 1 mL of diluted 0.04 mg/mL strength slow IV push over 1 minute. Give first dose, notify practitioner, and continue to observe. Repeat for up to 5 doses per episode until patient is arousable and can take deep breaths. If no improvement in respiratory rate or remains difficult to arouse notify practitioner for additional orders. , PACU/Recovery naloxone (NARCAN) injection 0.4 mg(Linked Group 2) 0.4 mg, Intravenous, Q2MIN PRN, Opioid Reversal, Emergent Opioid Reversal (Respiratory Rate less than 6 breaths per minute or unresponsive to physical stimulation), Starting on Wed10/09/24 at 0715, Until Wed10/09/24 at 1342, Give first dose, notify practitioner, and continue to observe. Repeat for up to 5 doses per episode until patient is responsive to physical stimulation and can take deep breaths. , PACU/Recovery ondansetron (ZOFRAN) injection 4 mg 4 mg, Intravenous, Q4H PRN, Nausea, Vomiting, Starting on Wed10/09/24 at 0715, Until Wed10/09/24 at 1342, If multiple medications are ordered for nausea or vomiting - administer in the following priority based on medications ordered, effectiveness and availability: ondansetron (ZOFRAN) > prochlorperazine (COMPAZINE) > diphenhydrAMINE (BENADRYL) > hydrOXYzine HCl (VISTARIL)> ePHEDrine > scopolamine (TRANSDERM-SCOP)., PACU/Recovery oxyCODONE (ROXICODONE) immediate release tablet 5-10 mg 5-10 mg, Oral, Q4H PRN, Other, Moderate Pain (pain score 5-7), Severe Pain (pain score 8-10), Starting on Wed10/09/24 at 1021, Until Wed10/09/24 at 1342, Do not give both IV and ORAL opioids for pain. Give oral if patient is able to take oral medications., Post-op sterile water for irrigation ONCE PRN, Starting on Wed10/09/24 at 1010, Intra-op 1010 (Given - Provid er: Germain Whitaker MD - Comment: used on field) Linked Groups Order Group 1: lidocaine PF (XYLOCAINE) 1 % injection 0.1-0.3 mLJump to med 0.1-0.3 mL, Intradermal, ONCE, On Wed10/09/24 at 0815, For 1 dose, Lidocaine to be used for IV starts unless patient refuses., Pre-op And lidocaine PF (XYLOCAINE) 1 % injection 0.1-0.3 mLJump to med 0.1-0.3 mL, Intradermal, PRN, Other, for additional IV starts, Starting on Wed10/09/24 at 0748, Pre-op Group 2: naloxone (NARCAN) injection 0.4 mgJump to med 0.4 mg, Intravenous, Q2MIN PRN, Opioid Reversal, Emergent Opioid Reversal (Respiratory Rate less than 6 breaths per minute or unresponsive to physical stimulation), Starting on Wed10/09/24 at 0715, Until Wed10/09/24 at 1342, Give first dose, notify practitioner, and continue to observe. Repeat for up to 5 doses per episode until patient is responsive to physical stimulation and can take deep breaths. , PACU/Recovery Or naloxone (NARCAN) injection 0.04 mgJump to med 0.04 mg, Intravenous, Q2MIN PRN, Opioid Reversal, Non-Emergent Opioid Reversal (Respiratory Rate less than 8 breaths per minute or difficult to arouse), Starting on Wed10/09/24 at 0715, Until Wed10/09/24 at 1342, Dilution Instructions: Dilute 1 mL of 0.4 mg/mL naloxone vial into 9 mL of normal saline to make a final concentration of 0.04 mg/mL. Discard dose if not used within 1 hour. Use 1 mL of diluted 0.04 mg/mL strength slow IV push over 1 minute. Give first dose, notify practitioner, and continue to observe. Repeat for up to 5 doses per episode until patient is arousable and can take deep breaths. If no improvement in respiratory rate or remains difficult to arouse notify practitioner for additional orders. , PACU/Recovery documented in this encounter Care Teams Spring Forger Relationship Specialty Start Date End Date Unassigned, Provider [address] [place] [address] PCP - General 06/22/00 10/16/24 documented as of this encounter
--- OUTSIDE RECORDS SUMMARY | 2024-11-19 22:49 | XMS_ITS | Encounter Summary ---
Author Organization [facility] Address [address] [place] [address] Care Team Providers Care Manager Farm Name Role Phone Pcp, Pt Richard VARGAS Primary Care Provider [phone] Encounter Details Date Type Department Care Team (Latest Contact Info) Description 10/09/2024 Orders Only HIM DEPARTMENT ProviderLuciana [place] [address] Social History Tobacco Use Types Packs/Day Years Used Date Smoking Tobacco: Never Assessed Comments No Sex and Gender Information Value Date Recorded Sex Assigned at Not on file Legal Sex Female 6:54 AM CDT Gender Identity Not on file Sexual Orientation Not on file documented as of this encounter Plan of Treatment Upcoming Encounters Date Type Department Care Team (Late st Contact Info) Description 01/22/2025 11:45 AM CDT Appointment [facility] [address] Ultrasound [address] [place] [phone] Germain Whitaker MD [address] [place] [address] 01/25/2025 9:00 AM CDT Phone Visit [facility] - Urology [address] [facility] [place] [address] Germain Whitaker MD [address] [place] [address] documented as of this encounter Procedures Procedure Name Priority Date/Time Associated Diagnosis Comments EKG 10/09/2024 documented in this encounter Results * EKG (10/09/2024) us Interface Provider EKG Final Resu lt documented in this encounter Visit Diagnoses Not on filedocumented in this encounter Care Teams Manager Farm Relationship Specialty Start Date End Date Pcp, [place] [address] PCP - General 10/17/24 documented as of this encounter
--- OUTSIDE RECORDS SUMMARY | 2024-11-19 22:49 | XMS_ITS | Encounter Summary ---
Author Organization [facility] Address [address] [place] [address] Care Team Providers Care Transaction Coordinator Name Role Phone Unassigned, Provider Primary Care Provider Unava ilable Reason for Visit * Reason Comments Discharge Follow Up Call Encounter Details Date Type Department Care Team (Late st Contact Info) Description 10/10/2024 Telephone [facility] - Urology [address] [place], [place] [phone] Germain Whitaker MD [address] [place], [place] [phone] Discharge Follow Up Call Social History Tobacco Use Types Packs/Day Years Used Date Smoking Tobacco: Never Assessed Comments No Sex and Gender Information Value Date Recorded Sex Assigned at Not on file Legal Sex Female 6:54 AM CDT Gender Identity Not on file Sexual Orientation Not on file documented as of this encounter Nursing Notes * Gloria Bowie LPN - 10/10/2024 9:57 AM CST Post-Surgical Discharge follow-up call completed. Please refer to DOC Flowsheet: SURGDC for details. FARM WORKER documented in this encounter Plan of Treatment Upcoming Encounters Date Type Department Care Team (Late st Contact Info) Description 01/22/2025 11:45 AM CDT Appointment [facility] [place] [address] [facility] [address] [place] [address] Germain Whitaker MD [address] [place] [address] 01/25/2025 9:00 AM CDT Phone Visit [facility] - Urology [address] [facility] [address] Germain Whitaker MD [address] [place] [address] documented as of this encounter Visit Diagnoses Not on filedocumented in this encounter Care Teams Transaction Coordinator Relationship Specialty Start Date End Date Unassigned, Provider [address] [place] [address] PCP - General 06/22/00 10/16/24 documented as of this encounter
--- OUTSIDE RECORDS SUMMARY | 2024-11-19 22:49 | XMS_ITS | Encounter Summary ---
Author Organization [facility] Address [address] [place] [address] Care Team Providers Care Workers Compensation Claims Supervisor Name Role Phone Unassigned, Provider Primary Care Provider Unava ilable Reason for Visit * Procedure/Equipment (Routine) - Incomplete Specialty Diagnoses / Procedures Referred By Irina t Referred To Contact Diagnoses Surgery, elective Procedures FL C Arm Germain Whitaker MD [address] [place] [address] Phone: tel: fax: Referral ID Status Reason Start Date Expiration Date V isits Requested Visits Authorized [id number] Incomplete 10/02/2024 01/01/2026 1 1 Encounter Details Date Type Department Care Team (Late st Contact Info) Description 10/09/2024 9:10 AM WATER OPERATOR Ancillary Procedure [facility] [address] Radiology [address] [place] [address] Germain Whitaker MD [address] [place] [address] Surgery, elective Social History Tobacco Use Types Packs/Day Years [...] Description 01/22/2025 11:45 AM CDT Appointment [facility] [address] Ultrasound [address] [place] [address] Germain Whitaker MD [address] [place] [address] 01/25/2025 9:00 AM CDT Phone Visit [facility] - Urology [address] [place] [address] Germain Whitaker MD [address] [place] [address] documented as of this encounter Procedures Procedure Name Priority Date/Time Associated Diagnosis Comments FL C ARM Routine 10/09/2024 10:00 AM WATER OPERATOR Surgery, elective documented in this encounter Results * FL C Arm (10/09/2024 10:00 AM WATER OPERATOR) Anatomical Region Laterality Modality Radio Fluoroscop y Narrative 10/09/2024 11:39 AM WATER OPERATOR These images were obtained during a surgical procedure. us Germain Whitaker MD RAD FL Final Result documented in this encounter Visit Diagnoses Diagnosis Surgery, elective Unspecified elective surgery for purposes other than remedying health states documented in this encounter Care Teams Workers Compensation Claims Supervisor Relationship Specialty Start Date End Date Unassigned, Provider [address] [place] [address] PCP - General 06/22/00 10/16/24 documented as of this encounter
--- OUTSIDE RECORDS SUMMARY | 2024-11-19 22:49 | XMS_ITS | Encounter Summary ---
Author Organization [facility] Address [address] [place] [address] Care Team Providers Care Copper Roller Handler Printing Name Role Phone Unassigned, Provider Primary Care Provider Unava ilable Reason for Visit * Auth/Cert (Routine) Specialty Diagnoses / Procedures Referred By Irina phillips Referred To Contact Diagnoses Kidney stone Kidney stone on left side Procedures URETEROSCOPY WITH LASER LITHOTRIPSY AND URETERAL STENT PLACEMENT AND RETROGRADE PYELOGRAM Referral ID Status Reason Start Date Expiration Date Visits Re quested Visits Authorized [id number] 1 1 Encounter Details Date Type Department Care Team (Late st Contact Info) Description 10/09/2024 8:20 AM SENIOR C SOFTWARE DEVELOPER Ancillary Procedure [facility] [address] [place] [phone] Germain Whitaker MD [address] [place] [address] Social History Tobacco Use Types Packs/Day Years [...] Description 01/22/2025 11:45 AM CDT Appointment [facility] [place] [address] Ultrasound [address] [place] [phone] Germain Whitaker MD [address] [place] [address] 01/25/2025 9:00 AM CDT Phone Visit [facility] - Urology [address] [place], [place] [phone] Germain Whitaker MD [address] [place] [address] documented as of this encounter Procedures Procedure Name Priority Date/Time Associated Diagnosis Comments TAWANDA INLIGHT CAMERA IMAGES Routine 10/09/2024 8:17 AM SENIOR C SOFTWARE DEVELOPER documented in this encounter Results * TAWANDA Inlight Camera Images (10/09/2024 8:17 AM SENIOR C SOFTWARE DEVELOPER) Anatomical Region Laterality Modality Endoscopy Narrative 10/09/2024 8:17 AM SENIOR C SOFTWARE DEVELOPER These images were obtained during a surgical procedure. us Germain Whitaker MD RAD NON-REPORTABLES Final Res ult documented in this encounter Visit Diagnoses Not on filedocumented in this encounter Care Teams Copper Roller Handler Printing Relationship Specialty Start Date End Date Unassigned, Provider [address] [place] [address] PCP - General 06/22/00 10/16/24 documented as of this encounter
--- OUTSIDE RECORDS SUMMARY | 2024-11-19 22:49 | XMS_ITS | Encounter Summary ---
Author Organization [employer] Address [address] [place] [address] Care Team Providers Care Atomic Spectroscopist Name Role Phone Unassigned, Provider Primary Care Provider Unava ilable Reason for Visit * Auth/Cert (Routine) Specialty Diagnoses / Procedures Referred By Irina phillips Referred To Contact Diagnoses Kidney stone Kidney stone on left side Procedures URETEROSCOPY WITH LASER LITHOTRIPSY AND URETERAL STENT PLACEMENT AND RETROGRADE PYELOGRAM Referral ID Status Reason Start Date Expiration Date Visits Re quested Visits Authorized [id number] 1 1 Encounter Details Date Type Department Care Team (Late st Contact Info) Description 10/09/2024 7:40 AM INSOLVENCY CONSULTANT - 10/09/2024 11:36 AM INSOLVENCY CONSULTANT Hospital Encounter [facility] [address] [place] [address] Germain Whitaker MD [address] [place] [address] Discharge Disposition: Home Social History Tobacco Use Types Packs/Day Years [...] Comments Blood Pressure 145/85 10/09/2024 11:00 AM INSOLVENCY CONSULTANT Pulse 74 10/09/2024 11:00 AM INSOLVENCY CONSULTANT Temperature 36.7 C (98.1 F) 10/09/2024 10:20 AM INSOLVENCY CONSULTANT Respiratory Rate 16 10/09/2024 11:00 AM INSOLVENCY CONSULTANT Oxygen Saturation 93% 10/09/2024 11:00 AM INSOLVENCY CONSULTANT Inhaled Oxygen Concentration - - Weight - [...] AM CST PPA call completed by calling [phone] and spoke to patient. Advised of arrival [...] answered, no other needs at this time. LVENCY CONSULTANT documented in this encounter H&P Notes * Germain Whitaker MD - 10/09/2024 9:01 AM CST Surgery Update for Preop History and Physical For 10/09/2024 scheduled procedure Update to H&P includes: Patient and/or family denies any health changes since the H&P This patient has been evaluated by me today and has been found to be a suitable candidate for surgery. 10/09/2024 LVENCY CONSULTANT Source Note - Maryjane Parra DO - 10/04/2024 7:30 AM INSOLVENCY CONSULTANT Images from the original note were not included. [facility] Preoperative Consultation Sarika Wright : 1970 Gender: [...] alone Communication Method: Patient is active on S[employer] and has been instructed that results/communications will be made via Spling If a phone call is needed, the [...] placenta previa ??? COLONOSCOPY DIAGNOSTIC 1996 ??? [place] UNLISTED PROCEDURE VESTIBULE MOUTH 1994 ??? TONSILLECTOMY [...] ???indicated??? testing based on medical co-morbidities. A 2009 study randomized 1061 patients undergoing ambulatory, non-cataract surgery to routine or to indicated testing. Perioperative adverse events were similar (Anesthesia & Analgesia 2009;108:467-75; Anesthesiol. Clin. 2016 Mar;34(1):43-58). EKG * The ACC/AHA recommends against obtaining routine EKGs in patients undergoing low risk surgeries, a class IIa recommendation (JACC. 2014;64(21);e1-76). Session ID: [id number] Endnotes and bibliography available upon request: [email or web address] Labs: no ECG: yes - NSR, T wave progression unchanged from prior EKG in 2013 ICD-10-CM 1. Pre-op exam Z01.818 ECHO STRESS TREADMILL 2. Kidney stone N20.0 3. Chest pain in adult R07.9 KY READING EKG - NO CHARGE, COMP ONLY EKG 12 LEAD [place] ECG ROUTINE ECG W/LEAST 12 LDS W/I&R [...] Maryjane Parra DO .................... 10/05/2024 3:11 PM LVENCY CONSULTANT LVENCY CONSULTANT documented in this encounter Procedure Notes * Germain Whitaker MD - 10/09/2024 10:07 AM CST PATIENT NAME: Sarika Wright DATE OF SERVICE: 10/09/2024 PREOPERATIVE DIAGNOSIS: LEFT kidney stone POSTOPERATIVE DIAGNOSIS: Same OPERATION PERFORMED: 1. Cystoscopy 2. left retrograde pyelogram with fluoroscopic interpretation 3. left ureteroscopy, laser lithotripsy, stone basket manipulation and ureteral stent placement. SURGEON: Germain Whitaker MD ANESTHESIOLOGIST: Anesthesiologist: Autumn Carrillo MD WASH OIL PUMP OPERATOR HELPER: Marline Griffin APRN, CRNA ANESTHESIA: General endotracheal. ESTIMATED BLOOD LOSS: <5 mL. INTRAVENOUS FLUIDS: See record DRAINS: 6-Luxembourger x 26 cm left double-J ureteral stent. [...] draped in the usual sterile fashion. A 22-Luxembourger rigid cystoscope was inserted atraumatically into the [...] proximal collecting system under fluoroscopic guidance. A 12-Luxembourger x 14-Luxembourger x 36 cm ureteral access sheath was [...] over the indwelling safety wire and a 6-Luxembourger x 26 cm double-J ureteral stent was advanced over the wire to the kidney under fluoro and direct vision. The bladder was then drained and the cystoscope was removed. A garzon catheter was not indicated. She was repositioned in supine and awoken from anesthesia, having tolerated the procedure well. DISPOSITION: PACU then home. RTC as scheduled for LEFT stent removal. LVENCY CONSULTANT documented in this encounter Plan of Treatment Upcoming Encounters Date Type Department Care Team (Late st Contact Info) Description 01/22/2025 11:45 AM CDT [facility]ment [facility] [address] [address] [place] [address] Germain Whitaker MD [address] [place] [address] 01/25/2025 9:00 AM CDT Phone Visit [facility] - Urology [address] [place] [address] Germain Whitaker MD [address] [place] [address] documented as of this encounter Procedures Procedure Name Priority Date/Time Associated Diagnosis Comments CYSTOSCOPY,RETROGRAD E PYELOGRAM,URETEROSCO PY,HOLMIUM LASER LITHOTRIPSY OF STONE,URETERAL STENT PLACEMENT 10/09/2024 9:16 AM INSOLVENCY CONSULTANT Kidney stone Kidney stone on left side HCG,QUALITATIVE, SERUM STAT 10/09/2024 8:45 AM INSOLVENCY CONSULTANT POCT URINE Routine 10/09/2024 8:25 AM INSOLVENCY CONSULTANT TAWANDA INLIGHT CAMERA IMAGES Routine 10/09/2024 8:17 AM INSOLVENCY CONSULTANT documented in this encounter Results * Test Screen Blood (10/09/2024 8:45 AM INSOLVENCY CONSULTANT) HCG, Serum Qual Negative Negative 10/09/2024 9:19 AM INSOLVENCY CONSULTANT [facility] Blood Venipuncture / Unknown 10/09/2024 8:45 AM INSOLVENCY CONSULTANT 10/09/2024 8:48 AM INSOLVENCY CONSULTANT Autumn Carrillo MD LAB_1 Final Result [facility] [address] [place] [address] * (ABNORMAL) POCT urine (10/09/2024 8:25 AM INSOLVENCY CONSULTANT) Pathologist [facility] Urine Test - POC Positive(A ) Negative POCT Control Line Present, Clear Background - Internal control Yes POCT Cartridge Lot # [id number] POCT Urine 10/09/2024 8:25 AM INSOLVENCY CONSULTANT Germain Whitaker MD ET POINT OF CARE TEST ENTER/E DIT ORDERABLES Final Result Performing Organization Address [facility] Co de Phone Number POCT * TAWANDA Inlight Camera Images (10/09/2024 8:17 AM INSOLVENCY CONSULTANT) Anatomical Region Laterality Modality Endoscopy Narrative 10/09/2024 8:17 AM INSOLVENCY CONSULTANT These images were obtained during a surgical [...] pain scores)., Post-op Given 10/09/2024 11:17 AM INSOLVENCY CONSULTANT 650 mg dextrose 5 % infusion Intravenous, at 250 mL/hr, ONCE PRN, Other, for nausea if all other options have failed and patient is not diabetic., Starting on Wed10/09/24 at 0715, For 1 dose, PACU/Recovery ePHEDrine 5 mg/mL injection 5-10 mg, Intravenous, [id number], Other, For systolic blood pressure less than 90 mmHg, Starting on Wed10/09/24 at 0715, Until Wed10/09/24 at 1342, Repeat every 5 minutes to a maximum cumulative dose of 15 mg. Notify anesthesiologist if med is given., PACU/Recovery fentaNYL (SUBLIMAZE) injection 25 mcg 25 mcg, Intravenous, [id number], Pain, The immediate postop period when faster [...] at 1342, Intra-op Given 10/09/2024 10:10 AM INSOLVENCY CONSULTANT 1.5 mL Wound Site lactated ringers infusion 25 mL/hr, Intravenous, CONTINUOUS, Starting on Wed10/09/24 at 0815, Administer on all preop surgery patients, ages 12 and older, unless specified differently in the Protocol for Preop Initiation of IV fluids Order Set., Pre-op Restarted 10/09/2024 10:05 AM INSOLVENCY CONSULTANT Continued by Anesthesia 10/09/2024 9:27 AM INSOLVENCY CONSULTANT 25 mL/hr Started 10/09/2024 8:26 AM INSOLVENCY CONSULTANT 25 mL/hr 25 mL/hr lidocaine PF (XYLOCAINE) 1 % injection 0.1-0.3 mL 0.1-0.3 mL, Intradermal, PRN, Other, for additional IV starts, Starting on Wed10/09/24 at 0748, Pre-op meperidine (DEMEROL) injection 12.5 mg 12.5 mg, Intravenous, [id number], Shivering, Starting on Wed10/09/24 at 0715, Until [...] at 1010, Intra-op Given 10/09/2024 10:10 AM INSOLVENCY CONSULTANT 1,000 mL documented in this encounter Active and Recently Administered Medications Times are shown in INSOLVENCY CONSULTANT. Scheduled Medication Order 10/07/2024 10/08/2024 10/09/2024 ceFAZolin [...] 0941 (Started - Prov ider: Marline Griffin, INCIDENT COMMANDER, WASH OIL PUMP OPERATOR HELPER) lidocaine PF (XYLOCAINE) 1 % injection 0.1-0.3 [...] 08 (Started - Prov ider: Allyson Larson RN)0953 (Continued by Anesthesia - Provider: Marline Griffin [...] ePHEDrine 5 mg/mL injection 5-10 mg, Intravenous, [id number], Other, For systolic blood pressure less than 90 mmHg, Starting on Wed10/09/24 at 0715, Until Wed10/09/24 at 1342, Repeat every 5 minutes to a maximum cumulative dose of 15 mg. Notify anesthesiologist if med is given., PACU/Recovery fentaNYL (SUBLIMAZE) injection 25 mcg 25 mcg, Intravenous, [id number], Pain, The immediate postop period when faster [...] unable to take PO. Hold if on WIRELESS SALES ASSOCIATE, Post-op iohexol (OMNIPAQUE 300) 300 MG/ML injection [...] (DEMEROL) injection 12.5 mg 12.5 mg, Intravenous, [id number], Shivering, Starting on Wed10/09/24 at 0715, Until [...] PACU/Recovery documented in this encounter Care Teams Atomic Spectroscopist Relationship Specialty Start Date End Date Unassigned, Provider [address] [place] [address] PCP - General 06/22/00 10/16/24 documented as of this encounter
[2024-11-19 22:50] VITALS: BP 141/99; PULSE 83; RESP 16; TEMP 36.4; O2SAT 95; BMI 37.6
--- NOTE | 2024-11-19 23:00 | ED.ABDPAIN ---
HPI - Abdominal Pain General Time Seen by Provider: 23:00 Date Seen: 11/19/24 Chief Complaint: Abdominal Pain Stated Complaint: Left side abdominal pain Time Seen by Provider: 11/19/24 23:00 Source: patient and RN notes reviewed Mode of arrival: ambulatory Limitations: no limitations History of Present Illness HPI narrative: Sarika is a very pleasant 54-year-old female with history of kidney stone with lithotripsy and stent placement 2 months ago who comes to the emergency room with 24 hours of left upper quadrant pain. Patient notes the onset of intermittent left upper quadrant discomfort last evening. Tonight became much worsened even caused her to have some difficulty with taking a deep breath. She also had a temp of 99.6?. She has not had any dysuria hematuria or urinary symptoms. She notes that the pain is actually not present at this time although earlier she felt like she could press on the area and it would cause her discomfort around her left ribcage. She cannot recall any injuries falls or trauma. There have been no ill contacts at home and she has not had a sore throat runny nose or a cough. Denies nausea vomiting diarrhea blood in her stool. Does note that at a recent doctor visit her liver function tests were elevated and she is supposed to have those rechecked. Movement does not seem to change her pain. Pain does radiate into the left lower lung. Related Data Previous Rx's ?Medication ?Instructions ?Recorded hydrocodone 5 mg-acetaminophen 325 1 tab PO Q4-6H PRN pain #20 tabs 09/18/24 mg tablet ketorolac 10 mg tablet 10 mg PO Q8H 5 days #15 tabs 09/18/24 Allergies Allergy/AdvReac Type Severity Reaction Status Date / Time Latex, Natural Rubber Allergy Unknown Verified 11/19/24 22:57 Review of Systems Status of ROS Reports: 10 or more systems reviewed and unremarkable except as noted in History and below Const Reports: fever; Denies: chills or fatigue ENMT Denies: throat pain or nasal congestion Cardio Reports: chest pain; Denies: swelling of feet/ankles or shortness of breath with exertion Resp Denies: shortness of breath or cough GI Reports: abdominal pain; Denies: nausea, vomiting, diarrhea or blood in stool Denies: painful urination, urinary frequency or urinary urgency Musculo Denies: back pain Integ/Breast Denies: rash or redness Neuro Denies: headache Endo Denies: fatigue PFSH PFS Social History Smoking Status: Never smoker How often do you have a drink containing alcohol: never How often do you have six or more drinks on one occasion: Never AUDIT-C Alcohol total score: 0 Non-prescribed substance use: denies use Exam Narrative: Exam Narrative: Alert and oriented. Very pleasant woman in no acute distress. Accompanied by her and daughter. External ears eyes nose clear. Neck is supple. Heart with regular rate and rhythm. Lungs are clear in all lung castellanos. Deep breathing does not elicit any discomfort. Examination of the back does not show any evidence of lesions or blistering or redness. Palpation over the thoracic spine lateral ribcage without any discomfort. No CVA tenderness with percussion. Abdominal exam without masses or pain elicited. Abdomen is soft. Moving all extremities and lower extremities without edema. Const: Vital Signs, click to edit/add: Vital Signs - 24 hr 11/19/24 22:50 Temperature 97.5 F L Pulse Rate [Pulse Oximeter] 83 Respiratory Rate 16 Blood Pressure [Ri ght Upper Arm] 141/99 H Pulse Oximetry 95 Oxygen Delivery Me thod Room Air Documenting provider has reviewed patient's vital signs: yes Course Course ED Course: Differential diagnosis includes but is not limited to intestinal colic, diverticulitis, splenomegaly, pleurisy, musculoskeletal pain, shingles, UTI, ureteral colic. At this time will recheck CBC, comprehensive panel, CRP, urinalysis and a chest x-ray. Vital Signs Vital signs: Initial Vital Signs Temperature 97.5 F L 11/19/24 22:50 Temperature Source Temporal Artery Scan 11/19/24 22:50 Pulse Rate 83 11/19/24 22:50 Respiratory Rate 16 11/19/24 22:50 Blood Pressure 141/99 H 11/19/24 22:50 Blood Pressure Mean 113 H 11/19/24 22:50 Blood Pressure Position Sitting 11/19/24 22:50 Pulse Oximetry 95 11/19/24 22:50 Oxygen Delivery Method Room Air 11/19/24 22:50 Vital Signs Temperature 97.5 F L 11/19/24 22:50 Pulse Rate 83 11/19/24 22:50 Respiratory Rate 16 11/19/24 22:50 Blood Pressure 141/99 H 11/19/24 22:50 Pulse Oximetry 95 11/19/24 22:50 Oxygen Delivery Method Room Air 11/19/24 22:50 Temperature 97.5 F L 11/19/24 22:50 Pulse Rate 83 11/19/24 22:50 Respiratory Rate 16 11/19/24 22:50 Blood Pressure 141/99 H 11/19/24 22:50 Pulse Oximetry 95 11/19/24 22:50 Oxygen Delivery Method Room Air 11/19/24 22:50 MDM - Abdominal Pain MDM Narrative Medical decision making narrative: 1. Abdominal pain -labs reassuring with normal white count. Urinalysis questionable for you early UTI. Given patient's recent kidney stone with instrumentation, stent I have elected to treat possible UTI with Cipro 500 mg p.o. b.i.d. x7 days. Recommend returning to the ED for increasing pain, fever. That time I would suggest repeat CT. Tonight we elected to hold off an attempt to limit radiation. However given recent very large stone would have a low threshold for imaging if symptoms return or worsen. Patient noted to not have the pain she had described at home while in the ED. will have patient call in 48 hours to check on the urine culture. She may discontinue the antibiotic at that time if it is negative. 2. History of kidney stone 3. Disposition-home at this time. Return for worsening symptoms and as needed. Medical Records Attestation: I reviewed the patient's medical records. Lab Data Attestation: I reviewed the patient's lab results. Labs: Lab Results 11/19/24 11/19/24 Range/Units 23:00 23:15 WBC 9.97 (4.50-11.00) K/uL RBC 4.59 (4.00-5.20) m/uL Hgb 12.9 (12.0-16.0) gm/dL Hct 39.6 (33.0-51.0) % MCV 86 (80-100) fL MCH 28 (26-34) pg MCHC 33 (32-36) gm/dL RDW Coeff of Vishnu 12.8 (11.5-15.5) % Plt Count 351 (140-440) K/uL Neut % (Auto) 60.4 (42.0-72.0) % Lymph % (Auto) 28.5 (20-44) % [place] % (Auto) 7.3 (0.0-11.0) % Eos % (Auto) 1.7 (0.0-7.0) % Baso % (Auto) 0.6 (0.0-3.0) % Neut # (Auto) 6.02 (1.7-7.0) K/uL Lymph # (Auto) 2.84 (0.90-2.90) K/uL [place] # (Auto) 0.70 (0.00-0.90) K/UL Eos # (Auto) 0.17 (0.00-0.50) K/uL Baso # (Auto) 0.06 (0.00-0.30) K/uL Abs Immat Gran (auto) 0.15 (0.00-0.30) K/uL Imm/Tot Granulo (auto) 1.5 % Sodium 137 (135-149) mmol/L Potassium 3.9 (3.6-5.1) mmol/L Chloride 105 (96-114) mmol/L Carbon Dioxide 23 (20-32) mmol/L Anion Gap 9 (7-15) mEq/L BUN 14 (7-30) mg/dL Creatinine 0.9 (0.5-1.5) mg/dL Estimated Creat Clear 64.30 Estimated GFR 76 ml/min Glucose 103 (60-115) mg/dL Calcium 9.4 (8.4-10.6) mg/dL Total Bilirubin 0.4 (0.1-1.5) mg/dL AST 30 (12-35) U/L ALT 38 H (4-35) U/L Alkaline Phosphatase 154 H (40-150) U/L C-Reactive Protein 1.0 (0.5-1.0) mg/dL Total Protein 7.5 (6.0-8.3) g/dL Albumin 4.4 (3.3-5.0) g/dL Urine Color Yellow (Yellow) Urine Appearance Cloudy A (Clear) Urine pH 6.0 (5.0-8.5) Ur Specific [place] <= 1.005 (1.000-1.030) Urine Protein Negative (Negative) Urine Glucose (UA) Negative (Negative) Urine Ketones Negative (Negative) Urine Blood Negative (Negative) Urine Nitrite Negative (Negative) Urine Bilirubin Negative (Negative) Urine Urobilinogen 0.2 (0.2-1.0) Ur Leukocyte Esterase 1+ A (Negative) Urine RBC 0-2 (0-2) Urine WBC 2-5 (0-5) Ur Squamous Epith Cells Moderate A (None-Few) Urine Bacteria Moderate A (None) Urine Mucus Few A (None) SARS-CoV-2 (PCR) Negative SARS-CoV-2 (Negative) Influenza Type A (PCR) Negative PCR FLU A (Negative) Influenza Type B (PCR) Negative PCR FLU B (Negative) RSV (PCR) Negative PCR RSV (Negative) Imaging Data Chest x-ray: Attestation: I have reviewed the pertinent imaging results. My impression: No acute findings Radiologist's impression: Unremarkable cardiomediastinal contours. No lung consolidation. No sign of pleural effusion. No pneumothorax. No acute osseous or soft tissue findings. IMPRESSION: No acute findings. Discharge Plan Discharge Clinical Impression: UTI (urinary tract infection), Abdominal pain Patient Disposition: Home, Self-Care Condition: Improved Additional Instructions: Start Cipro tonight. We will await your urine culture. Please call on WednesdayNovember 21 to see if your culture has grown anything. If it is negative we could discontinue the antibiotic. Low threshold for returning if you experiencing fever, vomiting, worsening pain. Prescriptions: No Action hydrocodone-acetaminophen 5-325 mg tablet 1 tab PO Q4-6H PRN (Reason: pain) Qty: 20 0RF ketorolac 10 mg tablet 10 mg PO Q8H 5 Days Qty: 15 0RF Follow Up/Referrals: Provider,Not a Local [Primary Care Provider] - Stand Alone Forms: XL Vide[employer] Info Instructions
[2024-11-19 23:06] LABS: Appearance Urine Cloudy (Clear); Bilirubin Urine Negative (Negative); Blood Urine Negative (Negative); Color Urine Yellow (Yellow); Glucose Urine Negative (Negative); Ketones Urine Negative (Negative); Leukocyte Esterase Urine 1+ (Negative); Nitrite Urine Negative (Negative); Protein Urine Negative (Negative); Specific Gravity Urine <= 1.005 (1.000-1.030); Urobilinogen Urine 0.2 (0.2-1.0)
--- NOTE | 2024-11-19 23:10 | CRLHL7_ITS ---
For Patients: As a result of the Century Cures Act, medical imaging exams and procedure reports are released immediately into your electronic medical record. You may view this report before your referring provider. If you have questions, please contact your health care provider. INDICATION: LEFT UPPER QUADRANT PAIN. TECHNIQUE: Chest 1 view. COMPARISON: Chest radiographs dated 03/30/2019. FINDINGS: Unremarkable cardiomediastinal contours. No lung consolidation. No sign of pleural effusion. No pneumothorax. No acute osseous or soft tissue findings. IMPRESSION: No acute findings. Dictated by Shon Morillo MD @ 11/19/2024 11:54:39 PM (Electronically Signed)
[2024-11-19 23:13] LABS: Bacteria Urine Moderate; Mucus Urine Few; RBC Urine 0-2 (0-2); Squamous Epithelial Cell Urine Moderate (None-Few)
[2024-11-19 23:28] LABS: Basophils Absolute Auto 0.06 K/uL (0.00-0.30); Basophils Percent Auto 0.6 % (0.0-3.0); Eosinophils Absolute Auto 0.17 K/uL (0.00-0.50); Eosinophils Percent Auto 1.7 % (0.0-7.0); Hematocrit 39.6 % (33.0-51.0); Hemoglobin* 12.9 gm/dL (12.0-16.0); Immature Granulocytes Abs Auto 0.15 K/uL (0.00-0.30); Immature Granulocytes Pct Auto 1.5 %; Lymphocytes Absolute Auto 2.84 K/uL (0.90-2.90); Lymphocytes Percent Auto 28.5 % (20-44); Mean Corpuscular HGB Conc 33 gm/dL (32-36); Mean Corpuscular Hemoglobin 28 pg (26-34); Mean Corpuscular Volume 86 fL (80-100); Monocytes Percent Auto 7.3 % (0.0-11.0); Neutrophils Absolute Auto 6.02 K/uL (1.7-7.0); Neutrophils Percent Auto 60.4 % (42.0-72.0); Platelet Count* 351 K/uL (140-440); RDW Coefficient of Variation % 12.8 % (11.5-15.5); Red Blood Count 4.59 m/uL (4.00-5.20); White Blood Count* 9.97 K/uL (4.50-11.00)
[2024-11-19 23:33] LABS: Slide Review Reflex No
[2024-11-19 23:39] LABS: Albumin* 4.4 g/dL (3.3-5.0); Chloride* 105 mmol/L (96-114); Potassium* 3.9 mmol/L (3.6-5.1); Sodium* 137 mmol/L (135-149)
[2024-11-19 23:42] LABS: Alanine Aminotransferase* 38 U/L (4-35); Alkaline Phosphatase* 154 U/L (40-150); Anion Gap 9 mEq/L (7-15); Aspartate Amino Transferase* 30 U/L (12-35); Bilirubin Total* 0.4 mg/dL (0.1-1.5); Blood Urea Nitrogen* 14 mg/dL (7-30); Carbon Dioxide* 23 mmol/L (20-32); Creatinine* 0.9 mg/dL (0.5-1.5); Estimated Glomerular Filt Rate 76 ml/min; Total Protein* 7.5 g/dL (6.0-8.3)
[2024-11-19 23:43] LABS: Calcium* 9.4 mg/dL (8.4-10.6); Glucose* 103 mg/dL (60-115)
--- OUTSIDE RECORDS SUMMARY | 2024-11-19 23:43 | XMS_ITS | Encounter Summary ---
Author Organization [facility] Address [address] [place] [address] Care Team Providers Care [employer] Name Role Phone Unassigned, Provider Primary Care Provider Unava ilable Reason for Visit * Auth/Cert (Routine) Specialty Diagnoses / Procedures Referred By Irina phillips Referred To Contact Diagnoses Kidney stone Kidney stone on left side Procedures URETEROSCOPY WITH LASER LITHOTRIPSY AND URETERAL STENT PLACEMENT AND RETROGRADE PYELOGRAM Referral ID Status Reason Start Date Expiration Date Visits Re quested Visits Authorized [id number] 1 1 Encounter Details Date Type Department Care Team (Late st Contact Info) Description 10/09/2024 7:40 AM PIPE PROCESSOR - 10/09/2024 11:36 AM PIPE PROCESSOR Hospital Encounter [facility] [address] [place] [address] Germain Whitaker MD [address] [place] [address] Discharge Disposition: Home Social History Tobacco Use [...] Comments Blood Pressure 145/85 10/09/2024 11:00 AM PIPE PROCESSOR Pulse 74 10/09/2024 11:00 AM PIPE PROCESSOR Temperature 36.7 C (98.1 F) 10/09/2024 10:20 AM PIPE PROCESSOR Respiratory Rate 16 10/09/2024 11:00 AM PIPE PROCESSOR Oxygen Saturation 93% 10/09/2024 11:00 AM PIPE PROCESSOR Inhaled Oxygen Concentration - - Weight - [...] AM CST PPA call completed by calling [phone] and spoke to patient. Advised of arrival [...] answered, no other needs at this time. PROCESSOR documented in this encounter H&P Notes * Germain Whitaker MD - 10/09/2024 9:01 AM CST Surgery Update for Preop History and Physical For 10/09/2024 scheduled procedure Update to H&P includes: Patient and/or family denies any health changes since the H&P This patient has been evaluated by me today and has been found to be a suitable candidate for surgery. 10/09/2024 PROCESSOR Source Note - Maryjane Parra DO - 10/04/2024 7:30 AM PIPE PROCESSOR Images from the original note were not included. [facility] Preoperative Consultation Sarika Wright : 1970 Gender: [...] alone Communication Method: Patient is active on [employer] and has been instructed that results/communications will be made via [employer] If a phone call is needed, the [...] placenta previa ??? COLONOSCOPY DIAGNOSTIC 1996 ??? SD UNLISTED PROCEDURE VESTIBULE MOUTH 1994 ??? TONSILLECTOMY [...] class IIa recommendation (JACC. 2014;64(21);e1-76). Session ID: [id number] Endnotes and bibliography available upon request: [email or web address] Labs: no ECG: yes - NSR, T wave progression unchanged from prior EKG in 2013 ICD-10-CM 1. Pre-op exam Z01.818 ECHO STRESS TREADMILL 2. Kidney stone N20.0 3. Chest pain in adult R07.9 SD READING EKG - NO CHARGE, COMP ONLY EKG 12 LEAD SD ECG ROUTINE ECG W/LEAST 12 LDS W/I&R [...] Maryjane Parra DO .................... 10/05/2024 3:11 PM PROCESSOR PROCESSOR documented in this encounter Procedure Notes * Germain Whitaker MD - 10/09/2024 10:07 AM CST PATIENT NAME: Sarika Wright DATE OF SERVICE: 10/09/2024 PREOPERATIVE DIAGNOSIS: LEFT kidney stone POSTOPERATIVE DIAGNOSIS: Same OPERATION PERFORMED: 1. Cystoscopy 2. left retrograde pyelogram with fluoroscopic interpretation 3. left ureteroscopy, laser lithotripsy, stone basket manipulation and ureteral stent placement. SURGEON: Germain Whitaker MD ANESTHESIOLOGIST: Anesthesiologist: Autumn Carrillo MD VARNISH SUPERVISOR: Marline Griffin APRN, CRNA ANESTHESIA: General endotracheal. ESTIMATED BLOOD LOSS: <5 mL. INTRAVENOUS FLUIDS: See record DRAINS: 6-Kenyan x 26 cm left double-J ureteral stent. [...] draped in the usual sterile fashion. A 22-Kenyan rigid cystoscope was inserted atraumatically into the [...] proximal collecting system under fluoroscopic guidance. A 12-Kenyan x 14-Kenyan x 36 cm ureteral access sheath was [...] over the indwelling safety wire and a 6-Kenyan x 26 cm double-J ureteral stent was advanced over the wire to the kidney under fluoro and direct vision. The bladder was then drained and the cystoscope was removed. A garzon catheter was not indicated. She was repositioned in supine and awoken from anesthesia, having tolerated the procedure well. DISPOSITION: PACU then home. RTC as scheduled for LEFT stent removal. PROCESSOR documented in this encounter Plan of Treatment Upcoming Encounters Date Type Department Care Team (Late st Contact Info) Description 01/22/2025 11:45 AM CDT [facility]ment [facility] [address] [address] [place] [address] Germain Whitaker MD [address] [place] [address] 01/25/2025 9:00 AM CDT Phone Visit [facility] - Urology [address] [place] [address] Germain Whitaker MD [address] [place] [address] documented as of this encounter Procedures Procedure Name Priority Date/Time Associated Diagnosis Comments CYSTOSCOPY,RETROGRAD E PYELOGRAM,URETEROSCO PY,HOLMIUM LASER LITHOTRIPSY OF STONE,URETERAL STENT PLACEMENT 10/09/2024 9:16 AM PIPE PROCESSOR Kidney stone Kidney stone on left side HCG,QUALITATIVE, SERUM STAT 10/09/2024 8:45 AM PIPE PROCESSOR POCT URINE Routine 10/09/2024 8:25 AM PIPE PROCESSOR TAWANDA INLIGHT CAMERA IMAGES Routine 10/09/2024 8:17 AM PIPE PROCESSOR documented in this encounter Results * Test Screen Blood (10/09/2024 8:45 AM PIPE PROCESSOR) HCG, Serum Qual Negative Negative 10/09/2024 9:19 AM PIPE PROCESSOR [facility] Blood Venipuncture / Unknown 10/09/2024 8:45 AM PIPE PROCESSOR 10/09/2024 8:48 AM PIPE PROCESSOR Autumn Carrillo MD LAB_1 Final Result [facility] [address] [place] [address] * (ABNORMAL) POCT urine (10/09/2024 8:25 AM PIPE PROCESSOR) Pathologist [facility] Urine Test - POC Positive(A ) Negative POCT Control Line Present, Clear Background - Internal control Yes POCT Cartridge Lot # [id number] POCT Urine 10/09/2024 8:25 AM PIPE PROCESSOR Germain Whitaker MD ET POINT OF CARE TEST ENTER/E DIT ORDERABLES Final Result Performing Organization Address [facility] Co de Phone Number POCT * TAWANDA Inlight Camera Images (10/09/2024 8:17 AM PIPE PROCESSOR) Anatomical Region Laterality Modality Endoscopy Narrative 10/09/2024 8:17 AM PIPE PROCESSOR These images were obtained during a surgical [...] pain scores)., Post-op Given 10/09/2024 11:17 AM PIPE PROCESSOR 650 mg dextrose 5 % infusion Intravenous, at 250 mL/hr, ONCE PRN, Other, for nausea if all other options have failed and patient is not diabetic., Starting on Wed10/09/24 at 0715, For 1 dose, PACU/Recovery ePHEDrine 5 mg/mL injection 5-10 mg, Intravenous, [id number], Other, For systolic blood pressure less than 90 mmHg, Starting on Wed10/09/24 at 0715, Until Wed10/09/24 at 1342, Repeat every 5 minutes to a maximum cumulative dose of 15 mg. Notify anesthesiologist if med is given., PACU/Recovery fentaNYL (SUBLIMAZE) injection 25 mcg 25 mcg, Intravenous, [id number], Pain, The immediate postop period when faster [...] at 1342, Intra-op Given 10/09/2024 10:10 AM PIPE PROCESSOR 1.5 mL Wound Site lactated ringers infusion 25 mL/hr, Intravenous, CONTINUOUS, Starting on Wed10/09/24 at 0815, Administer on all preop surgery patients, ages 12 and older, unless specified differently in the Protocol for Preop Initiation of IV fluids Order Set., Pre-op Restarted 10/09/2024 10:05 AM PIPE PROCESSOR Continued by Anesthesia 10/09/2024 9:27 AM PIPE PROCESSOR 25 mL/hr Started 10/09/2024 8:26 AM PIPE PROCESSOR 25 mL/hr 25 mL/hr lidocaine PF (XYLOCAINE) 1 % injection 0.1-0.3 mL 0.1-0.3 mL, Intradermal, PRN, Other, for additional IV starts, Starting on Wed10/09/24 at 0748, Pre-op meperidine (DEMEROL) injection 12.5 mg 12.5 mg, Intravenous, [id number], Shivering, Starting on Wed10/09/24 at 0715, Until [...] at 1010, Intra-op Given 10/09/2024 10:10 AM PIPE PROCESSOR 1,000 mL documented in this encounter Active and Recently Administered Medications Times are shown in PIPE PROCESSOR. Scheduled Medication Order 10/07/2024 10/08/2024 10/09/2024 ceFAZolin [...] 0941 (Started - Prov ider: Marline Griffin, WRAP KNITTING MACHINE OPERATOR, VARNISH SUPERVISOR) lidocaine PF (XYLOCAINE) 1 % injection 0.1-0.3 [...] 08 (Started - Prov ider: Allyson Larson RN)0973 (Continued by Anesthesia - Provider: Marline Griffin [...] ePHEDrine 5 mg/mL injection 5-10 mg, Intravenous, [id number], Other, For systolic blood pressure less than 90 mmHg, Starting on Wed10/09/24 at 0715, Until Wed10/09/24 at 1342, Repeat every 5 minutes to a maximum cumulative dose of 15 mg. Notify anesthesiologist if med is given., PACU/Recovery fentaNYL (SUBLIMAZE) injection 25 mcg 25 mcg, Intravenous, [id number], Pain, The immediate postop period when faster [...] unable to take PO. Hold if on COMPLAINT CLERK, Post-op iohexol (OMNIPAQUE 300) 300 MG/ML injection [...] (DEMEROL) injection 12.5 mg 12.5 mg, Intravenous, [id number], Shivering, Starting on Wed10/09/24 at 0715, Until [...] PACU/Recovery documented in this encounter Care Teams Wind Science And Planning Relationship Specialty Start Date End Date Unassigned, Provider [address] [place] [address] PCP - General 06/22/00 10/16/24 documented as of this encounter
--- OUTSIDE RECORDS SUMMARY | 2024-11-19 23:43 | XMS_ITS | Encounter Summary ---
Author Organization [facility] Address [address] [place] [address] Care Team Providers Care Information [employer] Name Role Phone Unassigned, Provider Primary Care Provider Unava ilable Reason for Visit * Reason Comments QUESTIONS, GENERAL Encounter Details Date Type Department Care Team (Late st Contact Info) Description 10/13/2024 Telephone [facility] - Urology [address] [place] [address] Germain Whitaker MD [address] [place] [address] QUESTIONS, GENERAL Social History Tobacco [...] switch over to ibuprofen 800mg with food. RCOLLAR BASTER documented in this encounter Plan of Treatment Upcoming Encounters Date Type Department Care Team (Late st Contact Info) Description 01/22/2025 11:45 AM CDT Appointment [facility] [address] [facility] [address] [place] [address] Germain Whitaker MD [address] [place] [address] 01/25/2025 9:00 AM CDT Phone Visit [facility] - Urology [address] [place] [address] Germain Whitaker MD [address] [place] [address] documented as of this encounter Visit Diagnoses Not on filedocumented in this encounter Care Teams Information Clerk [employer] Relationship Specialty Start Date End Date Unassigned, Provider [address] [place] [address] PCP - General 06/22/00 10/16/24 documented as of this encounter
--- OUTSIDE RECORDS SUMMARY | 2024-11-19 23:43 | XMS_ITS | Encounter Summary ---
Author Organization [facility] Address [address] [place] [address] Care Team Providers Care Buffing Machine Operator Semiautomatic Name Role Phone Unassigned, Provider Primary Care Provider Unava ilable Reason for Visit * Auth/Cert (Routine) Specialty Diagnoses / Procedures Referred By Irina phillips Referred To Contact Diagnoses Kidney stone Kidney stone on left side Procedures URETEROSCOPY WITH LASER LITHOTRIPSY AND URETERAL STENT PLACEMENT AND RETROGRADE PYELOGRAM Referral ID Status Reason Start Date Expiration Date Visits Re quested Visits Authorized [id number] 1 1 Encounter Details Date Type Department Care Team (Late st Contact Info) Description 10/09/2024 9:00 AM CW OPERATOR - 10/09/2024 10:15 AM CW OPERATOR [facility] [address] [place] [address] Germain Whitaker MD [address] [place] [address] URETEROSCOPY WITH LASER LITHOTRIPSY AND URETERAL STENT [...] Comments Blood Pressure 146/81 10/09/2024 8:19 AM CW OPERATOR Pulse 67 10/09/2024 8:19 AM CW OPERATOR Temperature 36.3 C (97.3 F) 10/09/2024 8:19 AM CW OPERATOR Respiratory Rate 16 10/09/2024 8:19 AM CW OPERATOR Oxygen Saturation 96% 10/09/2024 8:19 AM CW OPERATOR Inhaled Oxygen Concentration - - Weight - [...] AM CST PPA call completed by calling [phone] and spoke to patient. Advised of arrival [...] answered, no other needs at this time. OPERATOR documented in this encounter H&P Notes * Germain Whitaker MD - 10/09/2024 9:01 AM CST Surgery Update for Preop History and Physical For 10/09/2024 scheduled procedure Update to H&P includes: Patient and/or family denies any health changes since the H&P This patient has been evaluated by me today and has been found to be a suitable candidate for surgery. 10/09/2024 OPERATOR Source Note - Maryjane Parra DO - 10/04/2024 7:30 AM CW OPERATOR Images from the original note were not included. [facility] Preoperative Consultation Sarika Wright : [...] alone Communication Method: Patient is active on [employer] and has been instructed that results/communications will be made via [employer] If a phone call is needed, the [...] placenta previa ??? COLONOSCOPY DIAGNOSTIC 1996 ??? TX UNLISTED PROCEDURE VESTIBULE MOUTH 1994 ??? TONSILLECTOMY [...] class IIa recommendation (JACC. 2014;64(21);e1-76). Session ID: [id number] Endnotes and bibliography available upon request: [email or web address] [facility]: no ECG: yes - NSR, T wave progression unchanged from prior EKG in 2013 ICD-10-CM 1. Pre-op exam Z01.818 ECHO STRESS TREADMILL 2. Kidney stone N20.0 3. Chest pain in adult R07.9 TX READING EKG - NO CHARGE, COMP ONLY EKG 12 LEAD TX ECG ROUTINE ECG W/LEAST 12 LDS W/I&R [...] Maryjane Parra DO .................... 10/05/2024 3:11 PM OPERATOR OPERATOR documented in this encounter Procedure Notes * Germain Whitaker MD - 10/09/2024 10:07 AM CST PATIENT NAME: Sarika Wright DATE OF SERVICE: 10/09/2024 PREOPERATIVE DIAGNOSIS: LEFT kidney stone POSTOPERATIVE DIAGNOSIS: Same OPERATION PERFORMED: 1. Cystoscopy 2. left retrograde pyelogram with fluoroscopic interpretation 3. left ureteroscopy, laser lithotripsy, stone basket manipulation and ureteral stent placement. SURGEON: Germain Whitaker MD ANESTHESIOLOGIST: Anesthesiologist: Autumn Carrillo MD BOX BRANDER: Marline Griffin APRN, CRNA ANESTHESIA: General endotracheal. ESTIMATED BLOOD LOSS: <5 mL. INTRAVENOUS FLUIDS: See record DRAINS: 6-Dominican x 26 cm left double-J ureteral stent. [...] draped in the usual sterile fashion. A 22-Dominican rigid cystoscope was inserted atraumatically into the [...] proximal collecting system under fluoroscopic guidance. A 12-Dominican x 14-Dominican x 36 cm ureteral access sheath was [...] over the indwelling safety wire and a 6-Dominican x 26 cm double-J ureteral stent was advanced over the wire to the kidney under fluoro and direct vision. The bladder was then drained and the cystoscope was removed. A garzon catheter was not indicated. She was repositioned in supine and awoken from anesthesia, having tolerated the procedure well. DISPOSITION: PACU then home. RTC as scheduled for LEFT stent removal. OPERATOR documented in this encounter Plan of Treatment Upcoming Encounters Date Type Department Care Team (Late st Contact Info) Description 01/22/2025 11:[address] [facility] [address] [address] [place] [phone] Germain Whitaker MD [address] [place] [address] 01/25/2025 9:00 AM CDT Phone Visit [facility] - Urology [address] [place] [address] Germain Whitaker MD [address] [place] [address] documented as of this encounter Procedures Procedure Name Priority Date/Time Associated Diagnosis Comments CYSTOSCOPY,RETROGRAD E PYELOGRAM,URETEROSCO PY,HOLMIUM LASER LITHOTRIPSY OF STONE,URETERAL STENT PLACEMENT 10/09/2024 9:16 AM CW OPERATOR Kidney stone Kidney stone on left side HCG,QUALITATIVE, SERUM STAT 10/09/2024 8:45 AM CW OPERATOR POCT URINE Routine 10/09/2024 8:25 AM CW OPERATOR TAWANDA INLIGHT CAMERA IMAGES Routine 10/09/2024 8:17 AM CW OPERATOR documented in this encounter Results * Test Screen Blood (10/09/2024 8:45 AM CW OPERATOR) HCG, Serum Qual Negative Negative 10/09/2024 9:19 AM CW OPERATOR [facility] Blood Venipuncture / Unknown 10/09/2024 8:45 AM CW OPERATOR 10/09/2024 8:48 AM CW OPERATOR Autumn Carrillo MD LAB_1 Final Result [facility] [address] [place] [address] * (ABNORMAL) POCT urine (10/09/2024 8:25 AM CW OPERATOR) Urine Test - POC Positive(A ) Negative POCT Control Line Present, Clear Background - Internal control Yes POCT Cartridge Lot # [id number] POCT Urine 10/09/2024 8:25 AM CW OPERATOR Germain Whitaker MD ET POINT OF CARE TEST ENTER/E DIT ORDERABLES Final Result POCT * TAWANDA Inlight Camera Images (10/09/2024 8:17 AM CW OPERATOR) Anatomical Region Laterality Modality Endoscopy Narrative 10/09/2024 8:17 AM CW OPERATOR These images were obtained during a [...] pain scores)., Post-op Given 10/09/2024 11:17 AM CW OPERATOR 650 mg dextrose 5 % infusion Intravenous, at 250 mL/hr, ONCE PRN, Other, for nausea if all other options have failed and patient is not diabetic., Starting on Wed10/09/24 at 0715, For 1 dose, PACU/Recovery ePHEDrine 5 mg/mL injection 5-10 mg, Intravenous, [id number], Other, For systolic blood pressure less than 90 mmHg, Starting on Wed10/09/24 at 0715, Until Wed10/09/24 at 1342, Repeat every 5 minutes to a maximum cumulative dose of 15 mg. Notify anesthesiologist if med is given., PACU/Recovery fentaNYL (SUBLIMAZE) injection 25 mcg 25 mcg, Intravenous, [id number], Pain, The immediate postop period when faster [...] at 1342, Intra-op Given 10/09/2024 10:10 AM CW OPERATOR 1.5 mL Wound Site lactated ringers infusion 25 mL/hr, Intravenous, CONTINUOUS, Starting on Wed10/09/24 at 0815, Administer on all preop surgery patients, ages 12 and older, unless specified differently in the Protocol for Preop Initiation of IV fluids Order Set., Pre-op Restarted 10/09/2024 10:05 AM CW OPERATOR Continued by Anesthesia 10/09/2024 9:27 AM CW OPERATOR 25 mL/hr Started 10/09/2024 8:26 AM CW OPERATOR 25 mL/hr 25 mL/hr lidocaine PF (XYLOCAINE) 1 % injection 0.1-0.3 mL 0.1-0.3 mL, Intradermal, PRN, Other, for additional IV starts, Starting on Wed10/09/24 at 0748, Pre-op meperidine (DEMEROL) injection 12.5 mg 12.5 mg, Intravenous, [id number], Shivering, Starting on Wed10/09/24 at 0715, Until [...] at 1010, Intra-op Given 10/09/2024 10:10 AM CW OPERATOR 1,000 mL documented in this encounter Active and Recently Administered Medications Times are shown in CW OPERATOR. Scheduled Medication Order 10/07/2024 10/08/2024 10/09/2024 ceFAZolin [...] 0941 (Started - Prov ider: Marline Griffin, BRANCH OPERATIONS COORDINATOR, BOX BRANDER) lidocaine PF (XYLOCAINE) 1 % injection 0.1-0.3 [...] ePHEDrine 5 mg/mL injection 5-10 mg, Intravenous, [id number], Other, For systolic blood pressure less than 90 mmHg, Starting on Wed10/09/24 at 0715, Until Wed10/09/24 at 1342, Repeat every 5 minutes to a maximum cumulative dose of 15 mg. Notify anesthesiologist if med is given., PACU/Recovery fentaNYL (SUBLIMAZE) injection 25 mcg 25 mcg, Intravenous, [id number], Pain, The immediate postop period when faster [...] unable to take PO. Hold if on SENIOR EXECUTIVE ASSISTANT, Post-op iohexol (OMNIPAQUE 300) 300 MG/ML [...] (DEMEROL) injection 12.5 mg 12.5 mg, Intravenous, [id number], Shivering, Starting on Wed10/09/24 at 0715, Until [...] PACU/Recovery documented in this encounter Care Teams Buffing Machine Operator Semiautomatic Relationship Specialty Start Date End Date Unassigned, Provider [address] [place] [address] PCP - General 06/22/00 10/16/24 documented as of this encounter
--- OUTSIDE RECORDS SUMMARY | 2024-11-19 23:43 | XMS_ITS | Clinical Summary ---
Author Organization [facility] Address [address] [place] [address] Care Team Providers Care Police Crime Scene Technician Name Role Phone Pcp, Pt Declines Primary Care Provider [phone] Source Comments You are receiving this document [...] for each transition of care or referral. [email or web address] Allergies Active Allergy Reactions Criticality Noted Date [...] 1:45 PM CDT Office Visit [facility] [address] [address] [place] [address] Germain Whitaker MD Kidney stone (Primary Dx) 10/13/2024 Telephone [facility] - Urology [address] [place] [address] Germain Whitaker MD QUESTIONS, GENERAL 10/10/[address] [facility] - Urology [address] [place] [address] Germain Whitaker MD Discharge Follow Up Call 10/09/2024 9:27 AM KIDS ACTIVITIES COACH Anesthesia Event [facility] [address] [place] [address] Autumn Carrillo MD Wolpers, Wendy A, CHAMBER WALKER, DRAFTER CASTINGS 10/09/2024 9:10 AM KIDS ACTIVITIES COACH Ancillary Procedure [facility] [address] Radiology [address] [place] [address] Germain Whitaker MD Surgery, elective 10/09/2024 9:00 AM KIDS ACTIVITIES COACH - 10/09/2024 10:15 AM KIDS ACTIVITIES COACH Surgery [facility] [address] [place] [address] Germain Whitaker MD URETEROSCOPY WITH LASER LITHOTRIPSY AND URETERAL STENT PLACEMENT AND RETROGRADE PYELOGRAM 10/09/2024 8:20 AM KIDS ACTIVITIES COACH Ancillary Procedure [facility] [address] [place] [address] Germain Whitaker MD 10/09/2024 7:40 AM KIDS ACTIVITIES COACH - 10/09/2024 11:36 AM KIDS ACTIVITIES COACH Hospital Encounter [facility] [address] [place] [address] Germain Whitaker MD Discharge Disposition: Home 10/09/2024 Orders Only HIM DEPARTMENT Provider, MD Luciana 09/21/2024 11:15 AM KIDS ACTIVITIES COACH Office Visit [facility] - Urology [address] [place] [address] Odessa Christian PA-C Kidney stone (Primary Dx); Kidney stone on left side 09/21/2024 10:25 AM KIDS ACTIVITIES COACH Ancillary Procedure [facility] [address] Radiology [address] [place] [address] Odessa Christian PA-C Kidney stone 09/19/2024 Notes/Orders [facility] - Urology [address] [place] [address] Denyjudith Odessa Woodward PA-C Kidney stone (Primary Dx) 09/18/2024 8:00 PM KIDS ACTIVITIES COACH Ancillary Procedure Radiology [facility] [address] [place] [address] Provider, Foreign Images from Last 3 Months [...] Comments Blood Pressure 145/85 10/09/2024 11:00 AM KIDS ACTIVITIES COACH Pulse 74 10/09/2024 11:00 AM KIDS ACTIVITIES COACH Temperature 36.7 C (98.1 F) 10/09/2024 10:20 AM KIDS ACTIVITIES COACH Respiratory Rate 16 10/09/2024 11:00 AM KIDS ACTIVITIES COACH Oxygen Saturation 93% 10/09/2024 11:00 AM KIDS ACTIVITIES COACH Inhaled Oxygen Concentration - - Weight 102.5 kg (226 lb) 09/21/2024 11:53 AM KIDS ACTIVITIES COACH Height 162.6 cm (5' 4) 09/21/2024 11:53 AM KIDS ACTIVITIES COACH Body Mass Index 38.79 09/21/2024 11:53 AM KIDS ACTIVITIES COACH Plan of Treatment Upcoming Encounters Date Type Department Care Team (Late st Contact Info) Description 01/22/2025 11:45 AM CDT Appointment [facility] [address] Ultrasound [address] [place] [address] Germain Whitaker MD [address] [place] [address] 01/25/2025 9:00 AM CDT Phone Visit [facility] - Urology [address] [place] [address] Germain Whitaker MD [address] [place] [address] Health Maintenance Due Date Last Done Comments [...] this topic Medical Devices Explanted Type Area Director Of Vocational Guidance Device Identifier Shelf Expiration Date Model / Serial / Lot Stent Ureteral Inlay 6fr 26cm - [id number] Implanted:Qty: 1 on 10/09/2024 by Germain Whitaker MD at [facility] Surgery [facility] Explanted:Qty: 1 on 10/17/2024 by Germain Whitaker MD DEVICE Left: URETER [employer] 03/08/2029 [id number] / / [id number] Procedures Procedure Name Priority Date/Time Associated Diagnosis Comments FL C ARM Routine 10/09/2024 10:00 AM KIDS ACTIVITIES COACH Surgery, elective CYSTOSCOPY,RETROGRAD E PYELOGRAM,URETEROSCO PY,HOLMIUM LASER LITHOTRIPSY OF STONE,URETERAL STENT PLACEMENT 10/09/2024 9:16 AM KIDS ACTIVITIES COACH Kidney stone Kidney stone on left side HCG,QUALITATIVE, SERUM STAT 10/09/2024 8:45 AM KIDS ACTIVITIES COACH POCT URINE Routine 10/09/2024 8:25 AM KIDS ACTIVITIES COACH TAWANDA INLIGHT CAMERA IMAGES Routine 10/09/2024 8:17 AM KIDS ACTIVITIES COACH EKG 10/09/2024 XR ABD FLAT/KUB 1 VIEW Routine 09/21/2024 10:33 AM KIDS ACTIVITIES COACH Kidney stone FOREIGN IMAGE(S) CT ABDOMEN/PELVIS Routine 09/18/2024 8:00 PM KIDS ACTIVITIES COACH from Last 3 Months Results * FL C Arm (10/09/2024 10:00 AM KIDS ACTIVITIES COACH) Anatomical Region Laterality Modality Radio Fluoroscop y Narrative 10/09/2024 11:39 AM KIDS ACTIVITIES COACH These images were obtained during a surgical procedure. us Germain Whitaker MD [facility] Final Result * Test Screen Blood (10/09/2024 8:45 AM KIDS ACTIVITIES COACH) HCG, Serum Qual Negative Negative 10/09/2024 9:19 AM KIDS ACTIVITIES COACH [facility] Blood Venipuncture / Unknown 10/09/2024 8:45 AM KIDS ACTIVITIES COACH 10/09/2024 8:48 AM KIDS ACTIVITIES COACH us Autumn Carrillo MD LAB_1 Final Result [facility] [address] [place] [address] * (ABNORMAL) POCT urine (10/09/2024 8:25 AM KIDS ACTIVITIES COACH) Urine Test - POC Positive(A ) Negative POCT Control Line Present, Clear Background - Internal control Yes POCT Cartridge Lot # [id number] POCT Urine 10/09/2024 8:25 AM KIDS ACTIVITIES COACH us Germain Whitaker MD ET POINT OF CARE TEST ENTER/E DIT ORDERABLES Final Result POCT * TAWANDA Inlight Camera Images (10/09/2024 8:17 AM KIDS ACTIVITIES COACH) Anatomical Region Laterality Modality Endoscopy Narrative 10/09/2024 8:17 AM KIDS ACTIVITIES COACH These images were obtained during a surgical procedure. us Germain Whitaker MD RAD NON-REPORTABLES Final Res ult * EKG (10/09/2024) us Interface Provider EKG Final Resu lt * XR Abd Flat/KUB 1 View (09/21/2024 10:33 AM KIDS ACTIVITIES COACH) Anatomical Region Laterality Modality Abdomen Digital Radiogra phy 09/21/2024 10:2 7 AM KIDS ACTIVITIES COACH Narrative 09/21/2024 11:07 AM KIDS ACTIVITIES COACH COMPARISON: None. FINDINGS: 9 mm calcification projecting [...] Foreign Image(S) CT Abdomen/Pelvis (09/18/2024 8:00 PM KIDS ACTIVITIES COACH) Narrative POCT - 09/24/2024 7:59 PM KIDS ACTIVITIES COACH These outside images have been uploaded into PACS. If the results were provided, they will be located in the patient's chart under the Media or Imaging tab. us Foreign Images Provider RAD NON-REPORTABLES Florina l Result POCT from Last 3 Months Insurance [employer]1 [employer] CHOICE Care Teams Police Crime Scene Technician Relationship Specialty Start Date End Date Pcp, [place] [address] PCP - General 10/17/24
--- OUTSIDE RECORDS SUMMARY | 2024-11-19 23:43 | XMS_ITS | Encounter Summary ---
Author Organization [facility] Address [address] [place] [address] Care Team Providers Care Director Of Software Development Name Role Phone Pcp, Pt Declines MD Primary Care Provider [phone] Reason for Referral * Procedure/Equipment (Routine) - Incomplete Specialty Diagnoses / Procedures Referred By Contabram t Referred To Contact Diagnoses Kidney stone Procedures US Renal W Bladder Germain Whitaker MD [address] [place] [address] Phone: tel: fax: Referral ID Status Reason Start Date Expiration Date V isits Requested Visits Authorized [id number] Incomplete 11/17/2024 02/16/2026 1 1 Reason for Visit * Reason Comments Follow-up, NOS Encounter Details Date Type Department Care Team (Late st Contact Info) Description 10/17/2024 1:45 PM CDT Office Visit [facility] [address] [place] [address] Germain Whitaker MD [address] [place] [address] Kidney stone (Primary Dx) Social [...] 01/22/2025 11:45 AM CDT [facility]ointment [facility] [address] Ultrasound [address] [place] [address] Germain Whitaker MD [address] [place] [address] 01/25/2025 9:00 AM CDT Phone Visit [facility] - Urology [address] [place] [address] Germain Whitaker MD [address] [place] [address] Scheduled Orders Name Type Priority Associated Diagnoses [...] mg documented in this encounter Care Teams Director Of Software Development Relationship Specialty Start Date End Date Pcp, [place] [address] PCP - General 10/17/24 documented as of this encounter
--- OUTSIDE RECORDS SUMMARY | 2024-11-19 23:43 | XMS_ITS | Clinical Summary ---
Author Organization [facility] Address [address] [place] [address] Care Team Providers Care Electronic Imaging System Operator Name Role Phone Esthela Stahl MD Unavailable [phone] Sheri Parra DO Primary Care Provider [phone] Allergies Active Allergy Reactions Criticality Noted Date [...] Description 11/08/2024 9:10 AM CDT Office Visit [facility] [address] [place] [address] Sheri Parra, DO Physical (54 year old) 11/08/2024 Travel 10/06/2024 Telephone [facility] [address] [place] [address] [address] Sheri Parra, DO Questions 10/05/2024 8:56 AM MANAGER PRIMARY - 10/05/2024 11:59 PM MANAGER PRIMARY Hospital Encounter [facility] [address] [place] [address] Sheri Parra, Pre-op exam; Chest pain in adult 10/04/2024 7:30 AM MANAGER PRIMARY Office Visit [facility] [address] [place] [address] [address] Sheri Parra, Pre-Op Exam (10/09/24 Ureteroscopy with Laser Lithotripsy and Ureteral Stent [facility] Dr. Germain Whitaker ) 10/04/2024 Orders Only [facility] [address] [place] [address] [address] Sheri Parra, DO 1 scan: (1-Ord) NFLD-EKG-10/04/24 10/04/2024 Travel 09/18/2024 Nurse Triage [facility] [address] [place] [address] Sheri Parra, DO Back Pain from Last 3 Months Immunizations Immunization Administration Dates Next Due AMB Influenza, IIV4 PF (=>6 mos Flulaval,Fluzone Fluarix)(Flu Clinic Only) 06/07/2020,05/30/2019 COVID-19 VACCINE SPIKEVAX (M ODERNA 50MCG/0.5ML) 12YO+ PFS 05/04/2024 COVID-19 vaccine ([employer]-Bio NTech 30mcg/0.3mL) 12YO+ BIVALENT PF, MDV 05/11/2022 COVID-19 vaccine (Pfizer-Bio NTech 30mcg/0.3mL) 12YO+ SHARMILA-SUCROSE PF, MDV 01/12/2022 COVID-19 vaccine ([employer] NT[employer] 30mcg/0.3mL) PF, MDV 11/23/2020,11/02/2020 INFLUENZA, IIV3 [...] on file Legal Sex Female 5:48 AM MANAGER PRIMARY Gender Identity Not on file Sexual Orientation [...] 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 Delivery Location:[place] Comments:marginal prev ia Last Filed Vital Signs Vital Sign Reading Time Taken Comments Blood Pressure 135/85 11/08/2024 9:24 AM CDT Pulse 69 11/08/2024 9:24 AM CDT Temperature 36.8 C (98.2 F) 03/19/2022 1:05 PM CDT Respiratory Rate 16 03/19/2022 1:05 PM CDT Oxygen Saturation 96% 07/15/2023 10: 01 AM MANAGER PRIMARY Inhaled Oxygen Concentration - - Weight 102.2 [...] 10/10/2019, Additional history exists Fecal testing sDNA-FIT ([place] guard) for age 45-75 11/14/2024 11/14/2021, 11/14/2021 [...] AM CDT Routine general medical examination at [facility] care facility LIPID PANEL W REFLEX MEASURED [...] W LTD DOPPLER BRAVO 10/05/2024 12:03 PM MANAGER PRIMARY Pre-op exam Chest pain in adult STRESS TEST EXERCISE DONE WITH STRESS ECHO BRAVO 10/05/2024 10:11 AM MANAGER PRIMARY Pre-op exam Chest pain in adult SCAN-STRESS TEST 10/05/2024 12:0 0 AM MANAGER PRIMARY EKG 12 LEAD Routine 10/04/2024 9:04 AM MANAGER PRIMARY Chest pain in adult CT READING EKG - NO CHARGE, COMP ONLY Routine 10/04/2024 9:03 AM MANAGER PRIMARY Chest pain in adult HPV HIGH RISK Routine 07/15/2023 10:40 AM MANAGER PRIMARY Screening for cervical cancer XR MAMMO YO BILAT SCREEN Routine 06/29/2023 4:57 PM MANAGER PRIMARY Visit for screening mammogram FECAL DNA (AKA [...] diagnosis of diabetes in children. According to [place] Diabetes Association (ADA) guidelines, hemoglobin A1c <7.0% represents optimal control in non- diabetic patients. Different metrics may apply to specific patient populations. Standards of Medical Care in Diabetes(ADA). Blood BLOOD SPECIMEN / Unknown 11/08/2024 10:11 AM CDT 11/08/2024 10:13 AM CDT Narrative [facility] - 11/09/2024 5:24 AM CDT FASTING:YES FASTING: YES Sheri Parra CHEMISTRY Final Resu lt Performing Organization Address [facility] Co de Phone Number [facility] [address] [place] [address], [facility] [address] [place] [address] * TSH WITH REFLEX (11/08/2024 10:11 AM [...] DO CHEMISTRY Final Resu Performing Organization Address [facility] Co de Phone Number [facility] [address] [place] [address], [facility] [address] [place] [address] * (ABNORMAL) LIPID PANEL W REFLEX MEASURED [...] Clin. Lipidol. 2015;9:129-169. LDL-CHOLESTEROL 148(H) mg/dL (calc) [facility] Comment: Reference range: <100 Desirable range <100 mg/dL for primary prevention; <70 mg/dL for patients with CHD or diabetic patients with > or = 2 CHD risk factors. LDL-C is now calculated using the Lee calculation, which is a validated novel method providing better accuracy than the Friedewald equation in the estimation of LDL-C. Dashawn SS et al. MAYA. 2013;310(19): 7660-9053 (http://education.[employer]/faq/YUL575) CHOL/HDLC RATIO 5.0(H) <5.0 (calc) [facility] NON HDL CHOLESTEROL 182(H) <130 mg/dL (calc) [facility] Comment: For patients with diabetes plus 1 major ASCVD risk factor, treating to a non-HDL-C goal of <100 mg/dL (LDL-C of <70 mg/dL) is considered a therapeutic option. Blood BLOOD SPECIMEN / Unknown 11/08/2024 10:11 AM CDT 11/08/2024 10:13 AM CDT Narrative [facility] - 11/09/2024 2:52 AM CDT FASTING:YES FASTING: YES Sheri Parra DO CHEMISTRY Final Resu lt [facility] [address] [place] [address], [facility] [address] [place] [address] * (ABNORMAL) VITAMIN D 25 (DEFICIENCY) (11/08/2024 10:11 AM CDT) VITAMIN D,25-OH,TOTAL,IA 15(L) 30 - 100 ng/mL [facility] Comment: Vitamin D Status 25-OH Vitamin D: Deficiency: <20 ng/mL Insufficiency: 20 - 29 ng/mL Optimal: > or = 30 ng/mL For 25-OH Vitamin D testing on patients on D2-supplementation and patients for whom quantitation of D2 and D3 fractions is required, the QuestAssureD(TM) 25-OH VIT D, (D2,D3), LC/MS/MS is recommended: order code 50509 (patients >2yrs). See Note 1 Note 1 For additional information, please refer to http://education.[employer]/faq/KYL766 (This link is being provided for informational/ educational purposes only.) Blood BLOOD SPECIMEN / Unknown 11/08/2024 10:11 AM CDT 11/08/2024 10:13 AM CDT Narrative [facility] - 11/09/2024 3:49 AM CDT FASTING:YES FASTING: YES Sheri Parra DO SEND OUTS Final Resu lt [facility] [address] [place] [address], [address] [address] * CBC W PLT NO DIFF (11/08/2024 10:11 AM CDT) WHITE BLOOD CELL COUNT 7.4 3.8 - 10.8 Thousand/u L [facility] RED BLOOD CELL COUNT 4.87 3.80 - 5.10 Million/uL [facility] HEMOGLOBIN 13.6 11.7 - 15.5 g/dL [facility] HEMATOCRIT 41.9 35.0 - 45.0 % [facility] MCV 86.0 80.0 - 100.0 fL [facility] MCH 27.9 27.0 - 33.0 pg [facility] MCHC 32.5 32.0 - 36.0 g/dL [facility] Comment: For adults, a slight [...] HEMATOLOGY Final Resu lt Performing Organization Address [facility] Co de Phone Number [facility] [address] [place] [address], [facility] [address] [place] [address] * FSH (11/08/2024 10:11 AM CDT) FSH 25.9 mIU/mL [facility] Comment: Reference Range Follicular Phase 2.5-10.2 Mid-cycle Peak 3.1-17.7 Luteal Phase 1.5- 9.1 Postmenopausal 23.0-116.3 Blood BLOOD SPECIMEN / Unknown 11/08/2024 10:11 AM CDT 11/08/2024 10:13 AM CDT Narrative [facility] - 11/09/2024 4:04 AM CDT FASTING:YES FASTING: YES us Sheri Parra DO CHEMISTRY Final Resu lt Performing Organization Address [facility]/State/ZIP Co de Phone Number [facility] [address] [facility] [place] [address], [place] [phone] [facility] [address] [facility] [place] [address] * (ABNORMAL) COMP METABOLIC PANEL (11/08/2024 10:11 AM CDT) Pathologist [facility] GLUCOSE 84 65 - 99 mg/dL [facility] [...] 3.6 - 5.1 g/dL [facility] GLOBULIN 3.0 1.9 - 3.7 g/dL (calc) [...] Sheri Parra DO CHEMISTRY Final Resu lt [facility] [address] [place] [address], [place] [phone] [facility] [address] [place] [address] * POCT Urine (11/08/2024 10:10 AM CDT) POC HCG URINE NEGATIVE NEGATIVE [facility] Urine URINE SPECIMEN / Unknown 11/08/2024 10:10 AM CDT 11/08/2024 10:10 AM CDT Sheri Parra DO URINE Final Resu lt [facility] [address] [place] [address], [place] [phone] [facility] [address] [place] [address] * ECHO STRESS EXRCSE W CNTRST W COLOR W LTD DOPPLER (10/05/2024 12:03 PM MANAGER PRIMARY) AORTIC VALVE MEAN PG 5 mmHg PEAK TR VELOCITY 1.9 m/s LVEDD 4.4 cm EJECTION FRACTION 55 - 60% Anatomical Region Laterality Modality Ultrasound, Othe r, Other 10/05/2024 9:09 AM MANAGER PRIMARY Narrative 10/05/2024 3:00 PM MANAGER PRIMARY STRESS ECHOCARDIOGRAM SARIKA SALEH : 1970 54 years Study Date: 10/05/2024 9:09:31 AM Gender: F BP: 128/73 mmHg Height: 165.00 cm BSA: 2.08 m Weight: 102.00 kg Tech: ROLF Referring MD: SHERI PARRA Site: [facility] Reading Location: Mobile-OP Patient Location: Outpatient. [...] 99% Mera Treadmill Score 7 Double Product 12404 Echo Findings:This is a negative stress echo [...] [place] [address]. Maximum stress test with 98.8% of age [...] ml diluted Definity, lot #[id number], [facility]# [id number] was administered peripherally to enhance visualization of all left ventricular segments. . This study was interpreted by an [facility] accredited facility. Final Procedure Note Jean Claude Mendoza MD - 10/05/2024 STRESS ECHOCARDIOGRAM SARIKA SALEH : 1970 54 years Study Date: 10/05/2024 9:09:31 AM Gender: F BP: 128/73 mmHg Height: 165.00 cm BSA: 2.08 m Weight: 102.00 kg Tech: ROLF Referring MD: SHERI PARRA Site: [facility]) Reading Location: Mobile-OP Patient Location: Outpatient. Procedure: [...] 99% Mera Treadmill Score 7 Double Product 66068 Echo Findings:This is a negative stress echo [...] sec to stage III according to [facility] stress echo protocol. Test terminated due to completion of protocoland fatigue. 10.2 METS were achieved. The patient achieved a heart rate of164 bpm which is 98.8% of maximum predicted heart rate. Maximum systolicblood pressure was 180 [place] [address]. Maximumstress test with 98.8% of age predicted [...] ml diluted Definity, lot #[id number], [facility]#[id number] was administered peripherally to enhance visualization of allleft ventricular segments. . This study was interpreted by an [facility] accredited facility. Final us Sheri Parra DO ECHO ORD Final Resu lt * STRESS TEST EXERCISE DONE WITH STRESS ECHO (10/05/2024 10:11 AM MANAGER PRIMARY) Anatomical Region Laterality Modality HEART Ultrasound, Othe r us Sheri Parra DO STRESS Final Resu lt * SCAN-STRESS TEST (10/05/2024 12:00 AM MANAGER PRIMARY) Anatomical Region Laterality Modality Ultrasound, Othe r Narrative 10/05/2024 12:00 AM MANAGER PRIMARY Ordered by an unspecified provider. us Other Clinical Staff OTHER Final Resul t * EKG 12 LEAD (10/04/2024 9:04 AM MANAGER PRIMARY) us Sheri Parra DO EKG ORD Final Resu lt * CT READING EKG - NO CHARGE, COMP ONLY (10/04/2024 9:03 AM MANAGER PRIMARY) us hSeri Parra DO PB - PROVIDER READINGS Fin al Result * HPV HIGH RISK (07/15/2023 10:40 AM MANAGER PRIMARY) TYPE 16 Negative Negative 07/20/2023 11:11 AM MANAGER PRIMARY [facility] TYPE 18 Negative Negative 07/20/2023 11:11 AM MANAGER PRIMARY [facility] OTHER HIGH RISK TYPES Negative Negative 07/20/2023 11:11 AM MANAGER PRIMARY [facility] Other (Cervical) Non-Blood / Unknown 07/15/2023 10:40 AM MANAGER PRIMARY 07/16/2023 12:12 PM MANAGER PRIMARY Narrative [facility] - 07/20/2023 11:11 AM MANAGER PRIMARY HPV types 16, 18, 31, 33, 35, 39, 45, 51, 52, 56, 58, 59, 66 and 68 DNA were undetectable or below the pre-set threshold. Methodology: [place] Cassandra 4800 HPV Test us Sheri Parra DO MICROBIOLOGY Final Resu lt [facility] [address] [place] [address], [place] * XR MAMMO YO BILAT SCREEN (06/29/2023 4:57 PM MANAGER PRIMARY) Anatomical Region Laterality Modality BREASTS, Breast Left, Breast Right Bilateral Mammography Impressions 06/30/2023 4:51 PM MANAGER PRIMARY There is no radiographic evidence for malignancy. Recommend annual mammograms. MAMMOGRAM ASSESSMENT: ACR 1 Negative PATIENTS: You will also receive a letter with your examination results in an easy to read format. If you have questions about your results, please contact your referring provider. Narrative 06/30/2023 4:51 PM MANAGER PRIMARY For Patients: As a result of the 21st Century Cures Act, medical imaging exams and procedure reports are released immediately into your electronic medical record. You may view this report before your referring provider. If you have questions, please contact your health care provider. XR MAMMO YO BILAT SCREEN [[id number]] CLINICAL HISTORY: This is an asymptomatic 52 [...] 9:14 AM CDT) ANTI HCV Non-reacti ve [facility] Blood specimen (specimen) BLOOD SPECIMEN / Unknown 05/25/2012 9:14 AM CDT 05/25/2012 9:01 AM CDT Result [facility] Keila DSOUZA SEND OUTS Final R esult [facility] INTERNAL ZIP [id number] [place] [address] * ANTI HIV 1/2 (05/25/2012 9:14 AM CDT) ANTI HIV 1/2 Non-reacti [facility] Blood specimen (specimen) BLOOD SPECIMEN / Unknown 05/25/2012 9:14 AM CDT 05/25/2012 9:01 AM CDT [facility] SEND [facility]S Final R esult [facility] INTERNAL ZIP [address] [place] [address] from Last 3 Months or Most Recently Relevant to Health Maintenance Insurance [employer] Care Teams Electronic Imaging System Operator Relationship Specialty Start Date End Date Sheri Parra DO [address] [place] [address] PCP - General Family Practice 06/17/23 Esthela Stahl MD SORTING COWS WORKER Obstetrics 08/11/12
--- OUTSIDE RECORDS SUMMARY | 2024-11-19 23:44 | XMS_ITS | Encounter Summary ---
Author Organization [facility] Address [address] [place] [address] Care Team Providers Care Behavioral Health Assistant Name Role Phone Unassigned, Provider Primary Care Provider Unava ilable Reason for Visit * Reason Comments Discharge Follow Up Call Encounter Details Date Type Department Care Team (Late st Contact Info) Description 10/10/2024 Telephone [facility] - Urology [address] [place], [place] [phone] Germain Whitaker MD [address] [place], [place] [phone] Discharge Follow Up Call Social History Tobacco [...] refer to DOC Flowsheet: SURGDC for details. 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 [address] Germain Whitaker MD [address] [place] [address] documented as of this encounter Visit Diagnoses Not on filedocumented in this encounter Care Teams Behavioral Health Assistant Relationship Specialty Start Date End Date Unassigned, Provider [address] [place] [address] PCP - General 06/22/00 10/16/24 documented as of this encounter
--- OUTSIDE RECORDS SUMMARY | 2024-11-19 23:44 | XMS_ITS | Encounter Summary ---
Author Organization [employer] Address [address] [place] [address] Care Team Providers Care Front End Alignment Specialist Name Role Phone Unassigned, Provider Primary Care Provider Unava ilable Reason for Visit * Auth/Cert (Routine) Specialty Diagnoses / Procedures Referred By Irina phillips Referred To Contact Diagnoses Kidney stone Kidney stone on left side Procedures URETEROSCOPY WITH LASER LITHOTRIPSY AND URETERAL STENT PLACEMENT AND RETROGRADE PYELOGRAM Referral ID Status Reason Start Date Expiration Date Visits Re quested Visits Authorized [id number] 1 1 Encounter Details Date Type Department Care Team (Late st Contact Info) Description 10/09/2024 9:27 AM CHOPPING MACHINE OPERATOR Anesthesia Event [facility] [address] [place] [address] Autumn Carrillo MD [address] [place], [place] [address] Marline Griffin APRN, CRNA [address] [place], [place] [address] Anesthesia Record Procedure Summary Procedure Name Responsible Anesthesiologist Anesthesia Start Time Anesthesia Stop Time URETEROSCOPY WITH LASER LITHOTRIPSY AND URETERAL STENT PLACEMENT AND RETROGRADE PYELOGRAM (Left: Vagina) Autumn Carrillo MD 10/09/24 0927 10/09/24 1020 Events Date Time Event Comment 10/09/2024 0927 0927 An Start Anesthesia star t time denotes sedation started by DIRECTOR OF CONTENT MARKETING currently on case; patient continuously monitored to O.R. By DIRECTOR OF CONTENT MARKETING 0932 An Start Data 0933 / Present [...] Date: 10/09/24; Placement Time: 09; Placed By: DIRECTOR OF CONTENT MARKETING; Induction Type: Pre-O2, IV; Masking: Easy; ETT [...] by Marline Griffin APRN, CRNA Flowsheet accepted PING MACHINE OPERATOR documented in this encounter Miscellaneous Notes [...] by: Autumn Carrillo MD 10/09/2024 11:09 AM PING MACHINE OPERATOR * Anesthesia Preprocedure Evaluation - Autumn [...] blood products discussed. The patient and/or their clearance representative were notified about the potential risks of damage to the lips, teeth, dental devices, mouth and airway. H&P Reviewed and Patient examined, no change observed IV access Antibiotics per surgery Electronically signed by: Autumn Carrillo MD 10/09/2024 8:40 AM PING MACHINE OPERATOR documented in this encounter Plan of Treatment Upcoming Encounters Date Type Department Care Team (Late st Contact Info) Description 01/22/2025 11:45 AM CDT Appointment [facility] [address] [facility] [address] [place] [phone] Germain Whitaker MD [address] [place], [place] [phone] 01/25/2025 9:00 AM CDT Phone Visit [facility] - Urology [address] [place], [place] [phone] Germain Whitaker MD [address] [place], [place] [phone] documented as of this encounter Visit Diagnoses [...] adults., Pre-opIndications:Infection prevention Started 10/09/2024 9:41 AM CHOPPING MACHINE OPERATOR 2 g dexAMETHasone (DECADRON) injection Intravenous, Starting on Wed10/09/24 at 0935, Until Wed10/09/24 at 1020 Given 10/09/2024 9:35 AM CHOPPING MACHINE OPERATOR 8 mg fentaNYL (SUBLIMAZE) injection Intravenous, Starting on Wed10/09/24 at 0932, Until Wed10/09/24 at 1020 Given 10/09/2024 9:50 AM CHOPPING MACHINE OPERATOR 50 mcg Given 10/09/2024 9:32 AM CHOPPING MACHINE OPERATOR 50 mcg ketorolac (TORADOL) injection Intravenous, Starting on Wed10/09/24 at 1000, Until Wed10/09/24 at 1020 Given 10/09/2024 10:00 AM CHOPPING MACHINE OPERATOR 15 mg lactated ringers infusion 25 mL/hr, Intravenous, CONTINUOUS, Starting on Wed10/09/24 at 0815, Administer on all preop surgery patients, ages 12 and older, unless specified differently in the Protocol for Preop Initiation of IV fluids Order Set., Pre-op Restarted 10/09/2024 10:05 AM CHOPPING MACHINE OPERATOR Continued by Anesthesia 10/09/2024 9:27 AM CHOPPING MACHINE OPERATOR 25 mL/hr Started 10/09/2024 8:26 AM CHOPPING MACHINE OPERATOR 25 mL/hr 25 mL/hr lidocaine PF (XYLOCAINE) 1 % injection Intravenous, Starting on Wed10/09/24 at 0935 Given 10/09/2024 9:35 AM CHOPPING MACHINE OPERATOR 100 mg midazolam (VERSED) injection Intravenous, Starting on Wed10/09/24 at 0928, Until Wed10/09/24 at 1020 Given 10/09/2024 9:28 AM CHOPPING MACHINE OPERATOR 2 mg ondansetron (ZOFRAN) injection Intravenous, Starting on Wed10/09/24 at 1000, Until Wed10/09/24 at 1020 Given 10/09/2024 10:00 AM CHOPPING MACHINE OPERATOR 4 mg propofol (DIPRIVAN) 10 mg/mL injection Intravenous, Starting on Wed10/09/24 at 0935, Until Wed10/09/24 at 1020 Given 10/09/2024 9:35 AM CHOPPING MACHINE OPERATOR 200 mg propofol (DIPRIVAN) 10 mg/mL injection Intravenous, Starting on Wed10/09/24 at 0935, Until Wed10/09/24 at 1020 Rate/Dose Change 10/09/2024 10:00 AM CHOPPING MACHINE OPERATOR 100 mcg/kg/min 61.2 mL/hr Started 10/09/2024 9:35 AM CHOPPING MACHINE OPERATOR 150 mcg/kg/min 91.8 mL/h r rocuronium (ZEMURON) injection Intravenous, Starting on Wed10/09/24 at 0935, Until Wed10/09/24 at 1020 Given 10/09/2024 9:35 AM CHOPPING MACHINE OPERATOR 50 mg sugammadex (BRIDION) injection Intravenous, Starting on Wed10/09/24 at 1004, Until Wed10/09/24 at 1020 Given 10/09/2024 10:04 AM CHOPPING MACHINE OPERATOR 200 mg documented in this encounter Care Teams Front End Alignment Specialist Relationship Specialty Start Date End Date Unassigned, Provider [address] [place] [address] PCP - General 06/22/00 10/16/24 documented as of this encounter
--- OUTSIDE RECORDS SUMMARY | 2024-11-19 23:44 | XMS_ITS | Encounter Summary ---
Author Organization [facility] Address [address] [place] [address] Care Team Providers Care Cancer Program Director Name Role Phone Pcp, Pt Richard VARGAS Primary Care Provider [phone] Encounter Details Date Type Department Care Team (Latest Contact Info) Description 10/09/2024 Orders Only HIM DEPARTMENT ProviderLuciana MD [place] [address] Social History Tobacco Use Types Packs/Day Years [...] Info) Description 01/22/2025 11:45 AM CDT Appointment [place] [facility] [place] [address] Ultrasound [address] [place] [address] Germain Whitaker MD [address] [place] [address] 01/25/2025 9:00 AM CDT Phone Visit [facility] - Urology [address] [facility] [place] [address] Germain Whitaker MD [address] [place] [address] documented as of this encounter Procedures Procedure Name Priority Date/Time Associated Diagnosis Comments EKG 10/09/2024 documented in this encounter Results * EKG (10/09/2024) us Interface Provider EKG Final Resu lt documented in this encounter Visit Diagnoses Not on filedocumented in this encounter Care Teams Cancer Program Director Relationship Specialty Start Date End Date Pcp, [place] [address] PCP - General 10/17/24 documented as of this encounter
--- OUTSIDE RECORDS SUMMARY | 2024-11-19 23:44 | XMS_ITS | Encounter Summary ---
Author Organization [facility] Address [address] [place] [address] Care Team Providers Care Marine Habitat Resource Specialist Name Role Phone Unassigned, Provider Primary Care Provider Unava ilable Reason for Visit * Auth/Cert (Routine) Specialty Diagnoses / Procedures Referred By Irina phillips Referred To Contact Diagnoses Kidney stone Kidney stone on left side Procedures URETEROSCOPY WITH LASER LITHOTRIPSY AND URETERAL STENT PLACEMENT AND RETROGRADE PYELOGRAM Referral ID Status Reason Start Date Expiration Date Visits Re quested Visits Authorized [id number] 1 1 Encounter Details Date Type Department Care Team (Late st Contact Info) Description 10/09/2024 8:20 AM MAJOR ASSEMBLY INSPECTOR Ancillary Procedure [facility] [address] [place] [phone] Germain Whitaker MD [address] [place] [address] Social History Tobacco Use Types Packs/Day Years [...] 01/22/2025 11:45 AM CDT Appointment [facility] [place] [address] [address] [address] [place] [phone] Germain Whitaker MD [address] [place] [address] 01/25/2025 9:00 AM CDT Phone Visit [facility] - Urology [address] [place], [place] [id number] Germain Whitaker MD [address] [place] [address] documented as of this encounter Procedures Procedure Name Priority Date/Time Associated Diagnosis Comments TAWANDA INLIGHT CAMERA IMAGES Routine 10/09/2024 8:17 AM MAJOR ASSEMBLY INSPECTOR documented in this encounter Results * TAWANDA Inlight Camera Images (10/09/2024 8:17 AM MAJOR ASSEMBLY INSPECTOR) Anatomical Region Laterality Modality Endoscopy Narrative 10/09/2024 8:17 AM MAJOR ASSEMBLY INSPECTOR These images were obtained during a surgical procedure. us Germain Whitaker MD RAD NON-REPORTABLES Final Res ult documented in this encounter Visit Diagnoses Not on filedocumented in this encounter Care Teams Marine Habitat Resource Specialist Relationship Specialty Start Date End Date Unassigned, Provider [address] [place] [address] PCP - General 06/22/00 10/16/24 documented as of this encounter
--- OUTSIDE RECORDS SUMMARY | 2024-11-19 23:44 | XMS_ITS | Encounter Summary ---
Author Organization [facility] Address [address] [place] [address] Care Team Providers Care Horse Race Starter Name Role Phone Unassigned, Provider Primary Care Provider Unava ilable Reason for Visit * Procedure/Equipment (Routine) - Incomplete Specialty Diagnoses / Procedures Referred By Irina t Referred To Contact Diagnoses Surgery, elective Procedures FL C Arm Germain Whitaker MD [address] [place] [address] Phone: tel: fax: Referral ID Status Reason Start Date Expiration Date V isits Requested Visits Authorized [id number] Incomplete 10/02/2024 01/01/2026 1 1 Encounter Details Date Type Department Care Team (Late st Contact Info) Description 10/09/2024 9:10 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 [address] Germain Whitaker MD [address] [place] [address] documented as of this encounter Procedures Procedure Name Priority Date/Time Associated Diagnosis Comments FL C ARM Routine 10/09/2024 10:00 AM HAIR MACHINE OPERATOR Surgery, elective documented in this encounter Results * FL C Arm (10/09/2024 10:00 AM HAIR MACHINE OPERATOR) Anatomical Region Laterality Modality Radio Fluoroscop y Narrative 10/09/2024 11:39 AM HAIR MACHINE OPERATOR These images were obtained during a surgical procedure. us Germain Whitaker MD RAD FL Final Result documented in this encounter Visit Diagnoses Diagnosis Surgery, elective Unspecified elective surgery for purposes other than remedying health states documented in this encounter Care Teams Horse Race Starter Relationship Specialty Start Date End Date Unassigned, Provider [address] [place] [address] PCP - General 06/22/00 10/16/24 documented as of this encounter
[2024-11-20 00:10] LABS: PCR FLU A Negative PCR FLU A (Negative); PCR FLU B Negative PCR FLU B (Negative); PCR RSV Negative PCR RSV (Negative); SARS PCR* Negative SARS-CoV-2 (Negative)
== END 2024-11-20 00:36 | disposition home or self-care (01) ==
PROVIDERS: Emergency Provider Family Medicine
DX: N39.0 Urinary tract infection, site not specified (principal); R10.9 Unspecified abdominal pain
CPT/HCPCS: 36415; 71045; 80053; 81001; 85025; 86140; 87086; 87631; 99284

== ENCOUNTER 2025-04-24 17:30 | Emergency (ER) | payer OTHER, SELFPAY ==
--- OUTSIDE RECORDS SUMMARY | 2025-04-24 17:32 | XMS_ITS | Clinical Summary ---
Author Organization [facility] Address [address] [place] [address] Care Team Providers Care Craft Worker Name Role Phone Pcp, Pt Declines MD Primary Care Provider [phone] Source Comments You are receiving this document [...] for each transition of care or referral. [employer] Allergies Active Allergy Reactions Criticality Noted Date [...] 09/21/2024 Kidney stone on left side 09/21/2024 Social History Tobacco Use Types Packs/Day Years Used Date Smoking Tobacco: Never Assessed Comments No Sex and Gender Information Value Date Recorded Sex Assigned at Not on file Legal Sex Female 6:54 AM CDT Gender Identity Not on file Sexual Orientation Not on file Last Filed Vital Signs Vital Sign Reading Time Taken Comments Blood Pressure 145/85 10/09/2024 11:00 AM NOODLE PRESS OPERATOR Pulse 74 10/09/2024 11:00 AM NOODLE PRESS OPERATOR Temperature 36.7 C (98.1 F) 10/09/2024 10:20 AM NOODLE PRESS OPERATOR Respiratory Rate 16 10/09/2024 11:00 AM NOODLE PRESS OPERATOR Oxygen Saturation 93% 10/09/2024 11:00 AM NOODLE PRESS OPERATOR Inhaled Oxygen Concentration - - Weight 102.5 kg (226 lb) 09/21/2024 11:53 AM NOODLE PRESS OPERATOR Height 162.6 cm (5' 4) 09/21/2024 11:53 AM NOODLE PRESS OPERATOR Body Mass Index 38.79 09/21/2024 11:53 AM NOODLE PRESS OPERATOR Plan of Treatment Health Maintenance Due Date Last Done Comments Cervical Cancer Screening Due 1970 Colon Cancer Screening Plan Due 1970 Diabetes Screening- (based on age and BMI) 1970 Hep C Screening (Preventive Services) 1970 Adult Preventive Visit 1988 HepB Vaccine (1) 1989 Cholesterol 2015 Pneumococcal Vaccine 50+ Yrs (1 of 1 - PCV) 2020 Mammogram 06/29/2024 06/29/2023, 04/0 08/2021, 10/10/2019 Influenza Vaccine (#1) 2025 , 05/18/2023, 06/17/2022, Additional history exists DTaP/Tdap/Td Vaccine (3 - Tdap) 07/20/2032 07/20/2022, 05/09/2012 HIV Screening (Preventive Services) Completed 05/25/2012 Zoster/Shingles Vaccine Completed 07/20/2022, 11/07 COVID-19 Vaccine Completed 05/04/2024, , 05/11/2022, Additional history exists HepA Vaccine Aged Out No longer eligi ble based on patient's age to complete this topic Hib Vaccine Aged Out No longer eligi ble based on patient's age to complete this topic IPV (Polio) Vaccine Aged Out No longe r eligible based on patient's age to complete this topic MCV4 Vaccine Aged Out No longer eligi ble based on patient's age to complete this topic Meningococcal B Vaccine Aged Out No l onger eligible based on patient's age to complete this topic Medical Devices Explanted Type Area Battery Assembler Device Identifier Shelf Expiration Date Model / Serial / Lot Stent Ureteral Inlay 6fr 26cm - [id number] Implanted:Qty: 1 on 10/09/2024 by Germain Whitaker MD at [facility] Explanted:Qty: 1 on 10/17/2024 by Germain Whitaker MD DEVICE Left: [employer] 03/08/2029 [id number] / / [id number] Insurance MEDICA CHOICE MEDICA CHOICE Care Teams Craft Worker Relationship Specialty Start Date End Date P[place], [place] [address] PCP - General 10/17/24
--- OUTSIDE RECORDS SUMMARY | 2025-04-24 17:32 | XMS_ITS | Clinical Summary ---
Author Organization [facility] Address [address] [place] [address] Care Team Providers Care Granulator Operator Name Role Phone Esthela Stahl MD Unavailable [phone] Maryjane Parra DO Primary Care Provider [phone] Miguel Skinner Unavailable [phone] Unavailable Allergies Active Allergy Reactions Criticality Noted Date Comments Latex Rash 07/06/2018 Medications medication order composer Ritual for Women 50+, Take 2 caps by mouth daily. Active metFORMIN 500 mg Extended-Releas e tabletIndicatio ns:Obesity (BMI 30-39.9) Take 1 tablet (500mg) by mouth daily with a meal for 2 weeks then if tolerating okay increase to 2 tablets (1000mg) by mouth daily with meal. 180 Tablet 5 Active Active Problems Problem Noted Date Diagnosed Date Pap smear for cervical cancer screening 07/26/20 23 Overview (07/26/2023): 07/2023 NIL/HPV negative Plan: Pap/HPV due 07/2028 Vitamin D deficiency 07/15/2023 BMI 36.0-36.9,adult 10/04/2017 Resolved Problems Problem Noted Date Diagnosed Date Resolved Date IUD (intrauterine device) in place - paraguard 09/09/2012 07/15/2023 Overview (06/23/2020): 09/2012 Encounters Date Type Department Care Team Description 03/09/2025 3:00 PM CDT Telemedicine [facility] - [place] Sarita Gandara [address] [place] [address] Medical Nutrition Therapy (MWL f/u) 03/09/2025 Travel 03/01/2025 7:55 AM CDT Office Visit [facility] [address] [facility] [place] [address] Maryjane Parra, Follow Up 03/01/2025 Travel 02/24/2025 Travel 02/22/2025 1:00 PM CDT - 02/22/2025 11:59 PM CDT Hospital Encounter [facility] [address] [facility] [place] [address] Maryjane Parra, Liver lesion, left lobe 02/22/2025 Travel 02/20/2025 2:00 PM CDT Telemedicine [facility] - [place] Sarita Gandara [facility] [address] [place] [address] Miguel Skinner PA Telehealth (No vitals taken); Weight (2nd visit, f/u metformin) 02/15/2025 Travel 02/07/2025 9:45 AM CDT Ancillary Procedure [facility] [address] [facility] [place] [address] 02/07/2025 Travel 02/04/2025 Travel 02/01/2025 3:00 PM CDT Telemedicine [facility] - [place] Sarita Gandara [facility] [address] [place] [address] Medical Nutrition Therapy (MWL f/u) 02/01/2025 Travel 01/24/2025 Orders Only [facility] [address] [place] [address] Maryjane Parra, DO <No scans attached> from Last 3 Months Immunizations Immunization Administration Dates Next Due AMB Influenza, IIV4 PF (=>6 mos Flulaval,Fluzone Fluarix)(Flu Clinic Only) 06/07/2020,05/30/2019 COVID-19 VACCINE SPIKEVAX (M ODERNA 50MCG/0.5ML) 12YO+ PFS 05/04/2024 COVID-19 vaccine (SchemaLogicBio NTech 30mcg/0.3mL) 12YO+ BIVALENT PF, MDV 05/11/2022 COVID-19 vaccine (SchemaLogicBio NTech 30mcg/0.3mL) 12YO+ SHARMILA-SUCROSE PF, MDV 01/12/2022 COVID-19 vaccine (SchemaLogicBio NTech 30mcg/0.3mL) PF, MDV 11/23/2020,11/02/2020 INFLUENZA, IIV3 PF (AGE >= 6 MO) 05/04/2024 Influenza, IIV3 (Age >=3 years) 06/09/2010 Influenza, IIV4 05/18/2023,,06/25/2021,2017 Td (Age >=7 Years) 08/09/2003 Tdap 07/20/2022,05/09/2012 Zoster (Shingrix-RZV, recombinant) 07/20/2022, Family History Medical History Relation Name Comments Alcoholism Brother Alcoholism Father Don Hyperlipidemia Father Don Hypertension Father Don Heart Disease Maternal Grandfather Diabetes Maternal Grandmother Ettie Alcoholism Mother Vianney Stroke Mother Vianney 76 Heart attack Sister Cancer-breast No Family History Premature CHD (under age 60) No Family History Relation Name Status Comments Brother Father Don Maternal Grandfather Maternal Grandmother Ettie Alive Mother Vianney Sister Social History Tobacco Use Types Packs/Day Years Used Date Smoking Tobacco: Never Smokeless Tobacco: Never Tobacco Cessation:Counseling Given: Yes Comments:no exposure Alcohol Use Standard Drinks/Week Comments Yes 0 (1 standard drink = 0.6 oz pur e alcohol) 0-1X/MONTH PHQ-2 Answer Date Recorded PHQ-2 TOTAL SCORE [...] on file Legal Sex Female 5:48 AM COMMUNITY COORDINATOR Gender Identity Not on file Sexual Orientation Not on file Obstetrics History Para Term AB IAB SAB Ectopic Multiple Livin g Live Births 3 1 1 1 1 0 Date Outcome GA Total Labor Labor/2nd/3rd Weight Sex Type Anes PTL Consuelo A1 A5 Name Clin Comments:System Genera paddy. Please review and update details. 02/01/20 07 Ectopic 06/16/20 10 Term 39w 0d M C-Sec tion [facility] Delivery Location:[place] Comments:marginal prev ia Last Filed Vital Signs Vital Sign Reading Time Taken Comments Blood Pressure 121/86 03/01/2025 7:52 AM CDT Pulse 71 03/01/2025 7:52 AM CDT Temperature 36.8 C (98.2 F) 03/19/2022 1:05 PM CDT Respiratory Rate 16 03/19/2022 1:05 PM CDT Oxygen Saturation 97% 11/23/2024 9:38 AM CDT Inhaled Oxygen Concentration - - Weight 97.5 kg (215 lb) 03/09/2025 3:00 PM CDT Height 166 cm (5' 5.35) 03/09/2025 3:00 PM CDT Body Mass Index 35.39 03/09/2025 3:00 PM CDT Plan of Treatment Upcoming Encounters Date Type Department Care Team (Late st Contact Info) Description 05/07/2025 11:00 AM CDT Telemedicine [facility] [place] [address] [place] [address] [place] [address] 05/08/2025 10:00 AM CDT Telemedicine [email or web address] [address] [place] [phone] Miguel Skinner PA [address] [place] [address] Health Maintenance Due Date Last Done Comments Hepatitis B series for 19+ ( 1 of 3 - 19+ 3-dose series) 1989 Pneumococcal series for age 50+ (1 of 1 - PCV) 2020 Mammogram for age 45-75 06/29/2024 06/29/20 23, 11/07/2021, 10/10/2019, Additional history exists Influenza Vaccine (#1) 2025 4, 05/18/2023, 06/17/2022, Additional history exists Depression screening for age 12+ 11/08/2025 11/08/2024, 07/15/2023, 10/30/2021, Additional history exists BMI (ht and wt on same day) for age 18+ 03/09/2026 03/09/2025, 02/20/2025, 02/01/2025, Additional history exists Fecal testing sDNA-FIT (Frisco guard) for age 45-75 11/23/2027 11/22/2024, 11/14/2021, 11/14/2021 Pap test for age 21-65 07/15/2028 3, 07/15/2023, 10/05/2019, Additional history exists Lipids for age 45-75 11/08/2029 11/08/2024, 07/15/2023, 10/30/2021, Additional history exists Tetanus booster 07/20/2032 07/20/2022, 08/2011, 08/09/2003 RSV vaccine for adults or (1 - 1-dose 75+ series) 2045 HIV for age 15-65 Completed 05/25/2012, 10/18/2009 Hepatitis C screening for ag e 18-79 Completed 05/25/2012 Zoster (shingles) series for age 50+ Completed 07/20/2022, 11/07/2021 COVID-19 vaccine series Completed 05/04/20 24, 05/25/2023, 05/11/2022, Additional history exists Procedures Procedure Name Priority Date/Time Associated Diagnosis Comments AMB CONSULT TO GASTROENTEROLOGY Routine 03/07/2025 7:53 PM CDT Liver lesion, left lobe Elevated alkaline phosphatase level MR ABDOMEN LIVER WWO Routine 02/22/2025 2:08 PM CDT Liver lesion, left lobe US ABDOMEN LIMITED RUQ Routine 10:05 AM CDT Elevated alkaline phosphatase level SDNA-FIT EXTERNAL (COLOGUARD) Routine 11/22/2024 9:54 AM CDT Screening for colon cancer LIPID PANEL W REFLEX MEASURED LDL Routine 11/08/2024 10:11 AM CDT Screening for lipid disorders HPV HIGH RISK Routine 07/15/2023 10:40 AM COMMUNITY COORDINATOR Screening for cervical cancer XR MAMMO YO BILAT SCREEN Routine 06/29/2023 4:57 PM COMMUNITY COORDINATOR Visit for screening mammogram ANTI HIV 1/2 Routine 05/25/2012 9:14 AM CDT Supervision of other normal (HC) ANTI HCV Routine 05/25/2012 9:14 AM CDT Supervision of other normal (HC) from Last 3 Months or Most Recently Relevant to Health Maintenance Results * MR ABDOMEN LIVER WWO (02/22/2025 2:08 PM CDT) Anatomical Region Laterality Modality Abdomen, LIVER Magnetic Resonan ce 02/23/2025 3:44 PM CDT Impressions 02/23/2025 3:44 PM CDT A 9 mm arterially enhancing lesion in segment 3 of the liver; indeterminate; follow-up MRI of the liver in 6 months suggested. Dictated by Britney Bolivar MD @ Feb 23 2025 3:44PM (Electronically Signed) [email or web address] Narrative 02/23/2025 3:44 PM CDT For Patients: As a result of the Cures Act, medical imaging exams and procedure reports are released immediately into your electronic medical record. You may view this report before your referring provider. If you have questions, please contact your health care provider. INDICATION: Lesion left hepatic lobe. COMPARISON: Ultrasound examination of the right upper quadrant of the abdomen February 07, 2025. TECHNIQUE: MR of the abdomen without and with intravenous contrast; precontrast T1 and T2 weighted imaging; T2 haste imaging; diffusion-weighted imaging; in- and out of phase imaging; postcontrast imaging including subtraction; 20 cc of clariscan contrast was injected IV. FINDINGS: A 9 mm arterially enhancing lesion in segment 3 of the liver slice 34 series 17. Difficult to identify this lesion on any of the other sequences. Becomes isointense with the rest of the liver on the venous phase imaging. No evidence of restriction of diffusion. No other focal hepatic or splenic pathology. No evidence of fatty infiltration of the liver. No pancreatic pathology. Gallbladder is unremarkable. No adrenal pathology. Kidneys are unremarkable. Procedure Note Britney Bolivar MBBS - 02/23/2025 For Patients: As a result of the Cures Act, medical imagingexams and procedure reports are released immediately into your electronicmedical record. You may view this report before your referring provider.If you have questions, please contact your health care provider. INDICATION: Lesion left hepatic lobe. COMPARISON: Ultrasound examination of the right upper quadrant of the abdomen February. TECHNIQUE: MR of the abdomen without and with intravenous contrast; precontrast T1and T2 weighted imaging; T2 haste imaging; diffusion-weighted imaging; in-and out of phase imaging; postcontrast imaging including subtraction; 20cc of clariscan contrast was injected IV. FINDINGS: A 9 mm arterially enhancing lesion in segment 3 of the liver slice 34series 17. Difficult to identify this lesion on any of the othersequences. Becomes isointense with the rest of the liver on the venousphase imaging. No evidence of restriction of diffusion. No other focalhepatic or splenic pathology. No evidence of fatty infiltration of theliver. No pancreatic pathology. Gallbladder is unremarkable. No adrenalpathology. Kidneys are unremarkable. IMPRESSION: A 9 mm arterially enhancing lesion in segment 3 of the liver;indeterminate; follow-up MRI of the liver in 6 months suggested. Dictated by Britney Bolivar MD @ Feb 23 2025 3:44PM (Electronically Signed) [email or web address] us Maryjane Parra DO MR Final Resu lt * US ABDOMEN LIMITED RUQ (02/07/2025 10:05 AM CDT) Anatomical Region Laterality Modality Abdomen, LIVER Ultrasound 02/07/2025 3:55 PM CDT Addenda Addendum by Armand Oliveros MD on 02/07/2025 7:39 PM CDT INDICATION: Elevated alkaline phosphatase level COMPARISON: none TECHNIQUE: Real time poole scale imaging and color Doppler analysis was performed of the right upper quadrant. FINDINGS: Liver echotexture is diffusely increased. Focal hypoechoic area within the left hepatic lobe measures 9 x 9 x 7 millimeters. There is a normal appearance of the hepatic IVC and proximal abdominal aorta. There is no evidence of ascites. The gallbladder is of normal size and there is no evidence of intraluminal stones or sludge. The gallbladder wall measures 1 mm in thickness. The common bile duct is of normal size and measures 4 mm in diameter at the level of the kailash hepatis. The visualized pancreas appears normal. There is no evidence of a stone or hydronephrosis within the right kidney. The right kidney measures 10.3 cm in length. IMPRESSION: Severe diffuse hepatic steatosis. Indeterminate 9 millimeter hypoechoic focus left hepatic lobe. MRI of the liver recommended for further evaluation. Dictated by Armand Oliveros MD @ Feb 07 2025 3:55PM (Electronically Signed) Impressions 02/07/2025 3:55 PM CDT Severe diffuse hepatic steatosis. Indeterminate 9 millimeter hypoechoic focus left hepatic lobe. MRI of the liver recommended for further evaluation. Dictated by Armand Oliveros MD @ 02/07/2025 3:55:25 PM (Electronically Signed) Narrative 02/07/2025 3:55 PM CDT For Patients: As a result of the 21st Century Cures Act, medical imaging exams and procedure reports are released immediately into your electronic medical record. You may view this report before your referring provider. If you have questions, please contact your health care provider. INDICATION: Elevated alkaline phosphatase level COMPARISON: none TECHNIQUE: Real time poole scale imaging and color Doppler analysis was performed of the right upper quadrant. FINDINGS: Liver echotexture is diffusely increased. Focal hypoechoic area within the left hepatic lobe measures 9 x 9 x 7 millimeters. There is a normal appearance of the hepatic IVC and proximal abdominal aorta. There is no evidence of ascites. The gallbladder is of normal size and there is no evidence of intraluminal stones or sludge. The gallbladder wall measures 1 mm in thickness. The common bile duct is of normal size and measures 4 mm in diameter at the level of the kailash hepatis. The visualized pancreas appears normal. There is no evidence of a stone or hydronephrosis within the right kidney. The right kidney measures 10.3 cm in length. Procedure Note Armand Oliveros MD - 02/07/2025 For Patients: As a result of the Cures Act, medical imagingexams and procedure reports are released immediately into your electronicmedical record. You may view this report before your referring provider.If you have questions, please contact your health care provider. INDICATION: Elevated alkaline phosphatase level COMPARISON: none TECHNIQUE: Real time poole scale imaging and color Doppler analysis was performed ofthe right upper quadrant. FINDINGS: Liver echotexture is diffusely increased. Focal hypoechoic area within theleft hepatic lobe measures 9 x 9 x 7 millimeters. There is a normalappearance of the hepatic IVC and proximal abdominal aorta. There is noevidence of ascites. The gallbladder is of normal size and there is noevidence of intraluminal stones or sludge. The gallbladder wall measures1 mm in thickness. The common bile duct is of normal size and measures 4mm in diameter at the level of the kailash hepatis. The visualized pancreasappears normal. There is no evidence of a stone or hydronephrosis withinthe right kidney. The right kidney measures 10.3 cm in length. IMPRESSION: Severe diffuse hepatic steatosis. Indeterminate 9 millimeter hypoechoicfocus left hepatic lobe. MRI of the liver recommended for furtherevaluation. Dictated by Armand Oliveros MD @ 02/07/2025 3:55:25 PM (Electronically Signed) us Maryjane Parra DO US Edited Res ult - Final * SDNA-FIT EXTERNAL (COLOGUARD) (11/22/2024 9:54 AM CDT) NONINV COLON CA DNA+OCC BLD SCRN STL-IMP Negative Negative 11/29/2024 11:29 AM CDT [facility] (CLIA #:[id number]) Comment: The Cologuard (TM) test was performed on this specimen. NEGATIVE TEST RESULT. A negative Cologuard result indicates a low likelihood that a colorectal cancer (CRC) or advanced adenoma (adenomatous polyps with more advanced pre-malignant features) is present. The chance that a person with a negative Cologuard test has a colorectal cancer is less than 1 in 1500 (negative predictive value >99.9%) or has an advanced adenoma is less than 5.3% (negative predictive value 94.7%). These data are based on a prospective cross-sectional study of 10,000 individuals at average risk for colorectal cancer who were screened with both Cologuard and colonoscopy. (Celeste Castelan. et al, N Engl J Med 2014;370(14):1286- 1297) The normal value (reference range) for this assay is negative. COLOGUARD RE-SCREENING RECOMMENDATION: Periodic colorectal cancer screening is an important part of preventive healthcare for asymptomatic individuals at average risk for colorectal cancer. Following a negative Cologuard result, the [place] [employer] Society and U.S. Multi-Society Task Force screening guidelines recommend a Cologuard re-screening interval of 3 years. References: [place] [employer] Guideline for Colorectal Cancer Screening: https://www.cancer.org/cancer/qvxcu-ncsijd-cvphll/aibphidsz-luulcjasy-vtvzwro/ac s-rec ommendations.html.; Antonio LYNN, Michael RESENDIZ, Moncho EldridgeK, Colorectal Cancer Screening: Recommendations for Physicians and Patients from the U.S. Multi-Society Task Force on Colorectal Cancer Screening , Am J Gastroenterology 2017; 112:2270-9859. TEST DESCRIPTION: Composite algorithmic analysis of stool DNA-biomarkers with hemoglobin immunoassay. Quantitative values of individual biomarkers are not reportable and are not associated with individual biomarker result reference ranges. Cologuard is intended for colorectal cancer screening of adults of either sex, 45 years or older, who are at average-risk for colorectal cancer (CRC). Cologuard has been approved for use by the U.S. FDA. The performance of Cologuard was established in a cross sectional study of average-risk adults aged 50-84. Cologuard performance in patients ages 45 to 49 years was estimated by sub-group analysis of near-age groups. Colonoscopies performed for a positive result may find as the most clinically significant lesion: colorectal cancer [4.0%], advanced adenoma (including sessile serrated polyps greater than or equal to 1cm diameter) [20%] or non- advanced adenoma [31%]; or no colorectal neoplasia [45%]. These estimates are derived from a prospective cross-sectional screening study of 10,000 individuals at average risk for colorectal cancer who were screened with both Cologuard and colonoscopy. (Celeste Ayers et al, N Engl J Med 2014;370(14):5853-4713.) Cologuard may produce a false negative or false positive result (no colorectal cancer or precancerous polyp present at colonoscopy follow up). A negative Cologuard test result does not guarantee the absence of CRC or advanced adenoma (pre-cancer). The current Cologuard screening interval is every 3 years. ([place] [employer] Society and U.S. Multi-Society Task Force). Cologuard performance data in a 10,000 patient pivotal study using colonoscopy as the reference method can be accessed at the following location: www.Andela/results. Additional description of the Cologuard test process, warnings and precautions can be found at . Stool specimen (specimen) (Rectum) 11/22/2024 9:54 AM CDT 11/24/2024 9:51 AM CDT us Maryjane Parra DO URINE Final Resu lt [facility] (CLIA #:[id number]) [address] [place] [address], * (ABNORMAL) LIPID PANEL W REFLEX MEASURED LDL (11/08/2024 10:11 AM CDT) CHOLESTEROL, TOTAL 228(H) <200 mg/dL [facility] HDL CHOLESTEROL 46(L) > OR = 50 mg/dL [facility] TRIGLYCERIDES 203(H) <150 mg/dL [facility] Comment: If a non-fasting specimen was collected, consider repeat triglyceride testing on a fasting specimen if clinically indicated. Alexander et al. J. of Clin. Lipidol. 2015;9:129-169. LDL-CHOLESTEROL 148(H) mg/dL (calc) [facility] Comment: Reference range: <100 Desirable range <100 mg/dL for primary prevention; <70 mg/dL for patients with CHD or diabetic patients with > or = 2 CHD risk factors. LDL-C is now calculated using the Lee calculation, which is a validated novel method providing better accuracy than the Friedewald equation in the estimation of LDL-C. Dashawn FRANCO et al. MAYA. 2013;310(19): 0355-0281 (http://education.Fyusion/faq/VAG203) CHOL/HDLC RATIO 5.0(H) <5.0 (calc) [facility] NON HDL CHOLESTEROL 182(H) <130 mg/dL (calc) [facility] Comment: For patients with diabetes plus 1 major ASCVD risk factor, treating to a non-HDL-C goal of <100 mg/dL (LDL-C of <70 mg/dL) is considered a therapeutic option. Blood BLOOD SPECIMEN / Unknown 11/08/2024 10:11 AM CDT 11/08/2024 10:13 AM CDT Narrative [facility] - 11/09/2024 2:52 AM CDT FASTING:YES FASTING: YES Maryjane Parra DO CHEMISTRY Final Resu lt [employer] [facility] [address] [place] [address], [facility] [address] [place] [address] * HPV HIGH RISK (07/15/2023 10:40 AM COMMUNITY COORDINATOR) TYPE 16 Negative Negative 07/20/2023 11:11 AM COMMUNITY COORDINATOR [facility]AL [facility] TYPE 18 Negative Negative 07/20/2023 11:11 AM COMMUNITY COORDINATOR [facility] TRA LABORATORY OTHER HIGH RISK TYPES Negative Negative 07/20/2023 11:11 AM COMMUNITY COORDINATOR [facility] LABOR[facility]ORY Other (Cervical) Non-Blood / Unknown 07/15/2023 10:40 AM COMMUNITY COORDINATOR 07/16/2023 12:12 PM COMMUNITY COORDINATOR Narrative [facility] - 07/20/2023 11:11 AM COMMUNITY COORDINATOR HPV types 16, 18, 31, 33, 35, 39, 45, 51, 52, 56, 58, 59, 66 and 68 DNA were undetectable or below the pre-set threshold. Methodology: Dino Cassandra 4800 HPV Test us Maryjane Parra DO MICROBIOLOGY Final Resu lt [facility] [address] [place] [address], * XR MAMMO YO BILAT SCREEN (06/29/2023 4:57 PM COMMUNITY COORDINATOR) Anatomical Region Laterality Modality BREASTS, Breast Left, Breast Right Bilateral Mammography Impressions 06/30/2023 4:51 PM COMMUNITY COORDINATOR There is no radiographic evidence for malignancy. Recommend annual mammograms. MAMMOGRAM ASSESSMENT: ACR 1 Negative PATIENTS: You will also receive a letter with your examination results in an easy to read format. If you have questions about your results, please contact your referring provider. Narrative 06/30/2023 4:51 PM COMMUNITY COORDINATOR For Patients: As a result of the Century Cures Act, medical imaging exams and procedure reports are released immediately into your electronic medical record. You may view this report before your referring provider. If you have questions, please contact your health care provider. XR MAMMO YO BILAT SCREEN [[id number]] CLINICAL HISTORY: This is an asymptomatic 52 [...] Salcedo MD MAMMO Final Resul t * ANTI HCV (05/25/2012 9:14 AM CDT) ANTI HCV Non-reacti ve [facility] Blood specimen (specimen) BLOOD SPECIMEN / Unknown 05/25/2012 9:14 AM CDT 05/25/2012 9:01 AM CDT Result [facility] Keila DSOUZA SEND OUTS Final R esult [facility] INTERNAL ZIP [id number] [place] [id number] * ANTI HIV 1/2 (05/25/2012 9:14 AM CDT) ANTI HIV 1/2 Non-reacti [facility] Blood specimen (specimen) BLOOD SPECIMEN / Unknown 05/25/2012 9:14 AM CDT 05/25/2012 9:01 AM CDT [facility] Final R esult [facility] INTERNAL ZIP [address] [place] [phone] from Last 3 Months or Most Recently Relevant to Health Maintenance Insurance [employer] Care Teams Granulator Operator Relationship Specialty Start Date End Date Maryjane Parra DO [address] [place] [address] PCP - General Family Practice 06/17/23 Esthela Stahl MD INFORMATICS PHYSICIAN LIAISON Obstetrics 08/11/12 Miguel Skinner PA [address] [facility] [address] [place] [address] Consulting Physician Physician Curriculum Specialist 12/28/[address] [facility] [address] [place] [address] Registered Dietitian Base Engineer 12/28/24
[2025-04-24 17:50] VITALS: BP 147/93; PULSE 82; RESP 18; TEMP 36.7; O2SAT 94; BMI 36.7
--- NOTE | 2025-04-24 18:03 | CRLHL7_ITS ---
For Patients: As a result of the Century Cures Act, medical imaging exams and procedure reports are released immediately into your electronic medical record. You may view this report before your referring provider. If you have questions, please contact your health care provider. INDICATION: Epigastric pain. TECHNIQUE: CT abdomen and pelvis acquired with 100 cc Omnipaque 350 IV contrast. COMPARISON: September 18, 2024. FINDINGS: Lower chest: Scattered atelectasis. Liver: Unremarkable. Normal in size and attenuation. No suspicious masses. Gallbladder and bile ducts: Unremarkable. No stones or inflammation. No biliary dilatation. Pancreas: Unremarkable. No mass or inflammation. Spleen: Unremarkable. Normal in size. No masses. Adrenal glands: Unremarkable. No nodules. Kidneys: Unremarkable. No suspicious masses, stones, or hydronephrosis. GI tract: Some fluid in the proximal colon. Normal in caliber. No sign of mass or inflammation. Normal appendix. Vasculature: Abdominal aorta is normal in caliber. Mesenteric arteries are patent. Lymph nodes: No lymphadenopathy. Peritoneum/Abdominal Wall: Tiny fat containing umbilical hernia. No sign of mass or infiltration. No free air or significant free fluid. Pelvis: Unremarkable. Bones: Unremarkable for age. IMPRESSION: Some fluid in the proximal colon which can be seen with diarrheal illness. Otherwise, no acute intra-abdominal/pelvic abnormality. Please note that all CT scans at this facility use dose modulation, iterative reconstruction, and/or weight-based dosing when appropriate to reduce radiation dose to as low as reasonably achievable. Dictated by Eros Stone MD @ 04/24/2025 6:50:18 PM (Electronically Signed)
--- NOTE | 2025-04-24 18:14 | ED.GENADULT ---
HPI - General Adult General Date Seen: 04/24/25 Chief complaint: Abdominal Pain Stated complaint: stomach pain Time Seen by Provider: 04/24/25 17:52 History of Present Illness HPI narrative: Patient is a 54-year-old woman here for evaluation of epigastric pain which has been intermittent for a little over week. She has not really noticed any particular pattern to it, she does say that if she drinks agusto rale or Coke and then is able to burp she feels temp early better. However she has felt nauseated and just generally poorly for the past week. She did have an episode of vomiting yesterday and then today has had several episodes of diarrhea. She has not run a fever. She had a kidney stone earlier this year which was removed. She denies abdominal surgeries. She does not smoke and rarely drinks. She says that she was diagnosed earlier this year with fatty liver due to abnormal liver function tests and has quit drinking since then. She had quite a bit of workup related to that, including an abdominal MRI as well as an ultrasound. No mention of gallstones according to her. She was seen by [facility] in the last month and is supposed to follow-up with them just for recheck in June. She denies prior history of gastritis or peptic ulcer disease, she does have a history of irritable bowel and this somewhat feels similar alert to that although she has not had problems for many years. She had an ulcer when she was 21 but no problems since then. She is having pain right now, today's episode started a couple hours prior to coming in. Related Data Home Medications ?Medication ?Instructions ?Recorded ?Confirmed metformin 500 mg tablet,extended mg PO 04/24/25 release 24 hr Previous Rx's ?Medication ?Instructions ?Recorded ondansetron 4 mg disintegrating 4 mg PO Q8H PRN nausea and 04/24/25 tablet vomiting #7 tabs Allergies Allergy/AdvReac Type Severity Reaction Status Date / Time Latex, Natural Rubber Allergy Unknown Verified 11/19/24 22:57 Review of Systems Status of ROS: Reports: 10 or more systems reviewed and unremarkable except as noted in History and below [facility] Social History Smoking Status: Never smoker How often do you have a drink containing alcohol: never How often do you have six or more drinks on one occasion: Never AUDIT-C Alcohol total score: 0 Non-prescribed substance use: denies use Exam Narrative: Exam Narrative: Vital signs reviewed In general, alert, nontoxic Head: Normocephalic, atraumatic. Eyes: Sclera clear. Pupils equal and reactive. ENT: Mucous membranes moist. Neck: Supple without adenopathy. Heart: Regular rate and rhythm without murmur. Lungs: Clear. No increased work of breathing, crackles or wheezes. Abdomen: Soft, nondistended. A little bit of upper abdominal tenderness without rebound guarding or rigidity. Extremities: Well perfused, pulses intact. No significant edema. Neurologic: Alert, conversant. Speech fluent, face symmetric. Moves all extremities equally. Skin: Warm, dry well perfused. Affect: Normal. Const: Vital Signs, click to edit/add: Vital Signs - 24 hr 04/24/25 17:50 Temperature 98.0 F Pulse Rate [Pulse Oximeter] 82 Respiratory Rate 18 Blood Pressure [Ri ght Upper Arm] 147/93 H Pulse Oximetry 94 Oxygen Delivery Me thod Room Air Course Course ED Course: Patient presents with intermittent epigastric pain, seemingly getting worse over the past week and now associated with an episode of vomiting and some diarrhea. Exam is benign, recent evaluation for abnormal liver tests suggest that she does not have gallstones. Other diagnostic considerations would be gastritis, peptic ulcer disease, pancreatitis, diverticulitis, biliary colic, angina, and others. As she is getting worse over the past week will go ahead and do some labs, CT scan to evaluate for diverticulitis, dry with Toradol for pain. She feels improved after Toradol. Exam remains benign. Her evaluation is really quite unrevealing. Her white blood cell count is slightly elevated at 13,000 thousand, fairly nonspecific in this setting. Hemoglobin is normal. Other labs are essentially normal. I reviewed her CT scan, and no obvious findings in the epigastrium. Radiology reads it as negative. She does have an elevated number of eosinophils, which is mild. Discussed this with her, would just recommend that she have this recheck to make sure that normalizes. She wonders about a possible food related cause for her symptoms, suggested that she could keep a food diary just to see if there is anything that reliably sets off her symptoms. Because she does not describe postprandial pain I think I am a little less suspicious that this represents gallbladder dysfunction, but discussed that I would recommend primary care follow-up to review how she is doing and consider further testing if needed. Trial of Prilosec 40 mg daily. Return for severe uncontrolled pain, uncontrolled vomiting, fevers or other worsening. Vital Signs Vital signs: Initial Vital Signs Temperature 98.0 F 04/24/25 17:50 Temperature Source Temporal Artery Scan 04/24/25 17:50 Pulse Rate 82 04/24/25 17:50 Pulse Rhythm Regular 04/24/25 17:50 Respiratory Rate 18 04/24/25 17:50 Blood Pressure 147/93 H 04/24/25 17:50 Blood Pressure Mean 111 H 04/24/25 17:50 Blood Pressure Position Sitting 04/24/25 17:50 Pulse Oximetry 94 04/24/25 17:50 Oxygen Delivery Method Room Air 04/24/25 17:50 Vital Signs Temperature 98.0 F 04/24/25 17:50 Pulse Rate 82 04/24/25 17:50 Respiratory Rate 18 04/24/25 17:50 Blood Pressure 147/93 H 04/24/25 17:50 Pulse Oximetry 94 04/24/25 17:50 Oxygen Delivery Method Room Air 04/24/25 17:50 Temperature 98.0 F 04/24/25 17:50 Pulse Rate 82 04/24/25 17:50 Respiratory Rate 18 04/24/25 17:50 Blood Pressure 147/93 H 04/24/25 17:50 Pulse Oximetry 94 04/24/25 17:50 Oxygen Delivery Method Room Air 04/24/25 17:50 Medications Administered Medications: Discontinued Medications Generic Name Dose Route Start Last Admin Trade Name Alphonsoq PRN Reason Stop Dose Admin Sodium Chloride 1,000 mls @ 1,000 mls/hr 04/24/25 18:15 04/24/25 18:31 0.9 % Sodium Chloride 1000 Ml IV 04/24/25 19:14 1,000 mls/hr .Q1H VERONIQUE Administration Ketorolac Tromethamine 15 mg 04/24/25 18:01 04/24/25 18:31 Ketorolac 15 Mg/Ml Inj IVP 04/24/25 18:02 15 mg ONCE ONE Administration Medical Decision Making Lab Data Labs: Lab Results 04/24/25 04/24/25 Range/Units 18:12 18:13 WBC 13.59 H (4.50-11.00) K/uL RBC 4.80 (4.00-5.20) m/uL Hgb 13.2 (12.0-16.0) gm/dL Hct 40.9 (33.0-51.0) % MCV 85 (80-100) fL MCH 28 (26-34) pg MCHC 32 (32-36) gm/dL RDW Coeff of Vishnu 12.8 (11.5-15.5) % Plt Count 355 (140-440) K/uL Neut % (Auto) 69.0 (42.0-72.0) % Lymph % (Auto) 13.6 L (20-44) % [place] % (Auto) 6.4 (0.0-11.0) % Eos % (Auto) 9.7 H (0.0-7.0) % Baso % (Auto) 0.5 (0.0-3.0) % Neut # (Auto) 9.40 H (1.7-7.0) K/uL Lymph # (Auto) 1.80 (0.90-2.90) K/uL [place] # (Auto) 0.90 (0.00-0.90) K/UL Eos # (Auto) 1.30 H (0.00-0.50) K/uL Baso # (Auto) 0.10 (0.00-0.30) K/uL Abs Immat Gran (auto) 0.10 (0.00-0.30) K/uL Imm/Tot Granulo (auto) 0.8 % Sodium 137 (135-149) mmol/L Potassium 4.0 (3.6-5.1) mmol/L Chloride 102 (96-114) mmol/L Carbon Dioxide 29 (20-32) mmol/L Anion Gap 6 L (7-15) mEq/L BUN 17 (7-30) mg/dL Creatinine 0.7 (0.5-1.5) mg/dL Estimated Creat Clear 76.00 Estimated GFR 103 ml/min Glucose 121 H (60-115) mg/dL Calcium 9.5 (8.4-10.6) mg/dL Total Bilirubin 0.3 (0.1-1.5) mg/dL Direct Bilirubin 0.2 (0.0-0.5) mg/dL AST 29 (12-35) U/L ALT 27 (4-35) U/L Alkaline Phosphatase 173 H (40-150) U/L C-Reactive Protein 1.1 H (0.5-1.0) mg/dL Total Protein 7.5 (6.0-8.3) g/dL Albumin 4.3 (3.3-5.0) g/dL Lipase 52 (23-300) U/L POC Troponin I 0.01 (0.01-0.04) ng/ml Imaging Data CT scan - abdomen: Attestation: I have reviewed the pertinent imaging results. Radiologist's impression: Patient: Sarika Wright MR#: [id number] : 1970 Acct:[id number] Loc: ED Service Date: 04/24/[address]: Ordering Physician: Elvira Schroeder M.D. Date of Service: 04/24/25 Procedure(s): CT abdomen pelvis w con Accession Number(s): [id number] cc: Elvira Schroeder M.D.; Provider,Not a Local~ For Patients: As a result of the Cures Act, medical imaging exams and procedure reports are released immediately into your electronic medical record. You may view this report before your referring provider. If you have questions, please contact your health care provider. INDICATION: Epigastric pain. TECHNIQUE: CT abdomen and pelvis acquired with 100 cc Omnipaque 350 IV contrast. COMPARISON: September 18, 2024. FINDINGS: Lower chest: Scattered atelectasis. Liver: Unremarkable. Normal in size and attenuation. No suspicious masses. Gallbladder and bile ducts: Unremarkable. No stones or inflammation. No biliary dilatation. Pancreas: Unremarkable. No mass or inflammation. Spleen: Unremarkable. Normal in size. No masses. Adrenal glands: Unremarkable. No nodules. Kidneys: Unremarkable. No suspicious masses, stones, or hydronephrosis. GI tract: Some fluid in the proximal colon. Normal in caliber. No sign of mass or inflammation. Normal appendix. Vasculature: Abdominal aorta is normal in caliber. Mesenteric arteries are patent. Lymph nodes: No lymphadenopathy. Peritoneum/Abdominal Wall: Tiny fat containing umbilical hernia. No sign of mass or infiltration. No free air or significant free fluid. Pelvis: Unremarkable. Bones: Unremarkable for age. IMPRESSION: Some fluid in the proximal colon which can be seen with diarrheal illness. Otherwise, no acute intra-abdominal/pelvic abnormality. Please note that all CT scans at this facility use dose modulation, iterative reconstruction, and/or weight-based dosing when appropriate to reduce radiation dose to as low as reasonably achievable. Dictated by rEos Stone MD @ 04/24/2025 6:50:18 PM Discharge Plan Discharge Clinical Impression: Epigastric abdominal pain Patient Disposition: Home, Self-Care Condition: Improved Instructions: Epigastric Pain (ED) Additional Instructions: I would recommend a trial of omeprazole 40 mg daily for 2 weeks. Please make an appointment to see your primary doctor in follow-up in the coming week. Your test today are all reassuring, blood work is normal with the exception of a mildly elevated white blood cell count and mildly elevated eosinophils. I would recommend this be rechecked with your primary doctor. You may want to consider keeping a food diary to see if there is anything that reliably sets off your symptoms. I prescribed Zofran, you can use this if needed for nausea or vomiting. If you have severe uncontrolled pain, fevers, uncontrolled vomiting, black or bloody stools, or other worsening symptoms, return to the ER at any time. Prescriptions: New ondansetron 4 mg tablet,disintegrating 4 mg PO Q8H PRN (Reason: nausea and vomiting) Qty: 7 0RF No Action metformin 500 mg tablet extended release 24 hr PO Follow Up/Referrals: Provider,Not a Local [Non-Staff, Family Practice] Stand Alone Forms: [facility] Info Instructions
[2025-04-24 18:29] LABS: Troponin, Point-of-Care* 0.01 ng/ml (0.01-0.04)
[2025-04-24 18:29] LABS: Hematocrit* 40.9 % (33.0-51.0); Hemoglobin* 13.2 gm/dL (12.0-16.0); Immature Granulocytes Abs Auto 0.10 K/uL (0.00-0.30); Immature Granulocytes Pct Auto 0.8 %; Lymphocytes Absolute Auto 1.80 K/uL (0.90-2.90); Mean Corpuscular HGB Conc 32 gm/dL (32-36); Mean Corpuscular Hemoglobin 28 pg (26-34); Mean Corpuscular Volume 85 fL (80-100); RDW Coefficient of Variation % 12.8 % (11.5-15.5); Red Blood Count* 4.80 m/uL (4.00-5.20); Slide Review Reflex No; White Blood Count* 13.59 K/uL (4.50-11.00)
[2025-04-24 18:41] LABS: Chloride* 102 mmol/L (96-114)
[2025-04-24 18:42] LABS: Albumin* 4.3 g/dL (3.3-5.0); Potassium* 4.0 mmol/L (3.6-5.1); Sodium* 137 mmol/L (135-149)
[2025-04-24 18:45] LABS: Alanine Aminotransferase* 27 U/L (4-35); Alkaline Phosphatase* 173 U/L (40-150); Anion Gap 6 mEq/L (7-15); Aspartate Amino Transferase* 29 U/L (12-35); Bilirubin Direct* 0.2 mg/dL (0.0-0.5); Bilirubin Total* 0.3 mg/dL (0.1-1.5); Blood Urea Nitrogen* 17 mg/dL (7-30); Calcium* 9.5 mg/dL (8.4-10.6); Carbon Dioxide* 29 mmol/L (20-32); Creatinine* 0.7 mg/dL (0.5-1.5); Est. Creatinine Clearance* 76.00; Estimated Glomerular Filt Rate 103 ml/min; Glucose* 121 mg/dL (60-115); Total Protein* 7.5 g/dL (6.0-8.3)
[2025-04-24 19:19] VITALS: BP 135/85; PULSE 79; RESP 18; TEMP 36.7; O2SAT 94
[2025-04-24 19:20] VITALS: BP 135/85; PULSE 79; RESP 18; TEMP 36.7
== END 2025-04-24 19:20 | disposition home or self-care (01) ==
PROVIDERS: Emergency Provider Emergency Medicine; PCP Family Medicine
DX: R11.0 Nausea (principal)
CPT/HCPCS: 36415; 74177; 80048; 80076; 83690; 84484; 85025; 86140; 93005; 99284; 99285; J1885; J7030; Q9967